=== PATIENT | male | born 1950 | race Caucasian/White ===

== ENCOUNTER 2018-04-18 17:54 | Inpatient (IN) | payer MEDICARE, MEDICAID ==
[~2018-04-18 17:54] MED LIST: HUM INSULIN NPH/REG INSULIN HM 100 UNIT/1 ML 3 ML SUBCUT SCH
[2018-04-18] MEDS ORDERED: ACETAMINOPHEN 650 MG SUPP.RECT PR ONE ×2 (18:19→18:21)
[2018-04-18] MEDS ORDERED: ACETAMINOPHEN 325 MG SUPP.RECT PR ONE (18:20)
[2018-04-18 18:32] LABS: INTERNATIONAL RATION (INR) 0.97; PROTHROMBIN TIME 13.4 SEC (11.4-15.4)
[2018-04-18 18:34] LABS: APPEARANCE,URINE SLIGHTLY-CLOUDY; BILIRUBIN,URINE NEGATIVE (NEGATIVE); COLOR,URINE YELLOW; GLUCOSE, URINE >=500 mg/dL (NEGATIVE); KETONES,URINE NEGATIVE (NEGATIVE); LEUKOCYTE ESTERASE,URINE NEGATIVE (NEGATIVE); NITRITE,URINE NEGATIVE (NEGATIVE); PROTEIN,URINE NEGATIVE (NEGATIVE); URINE SPECIFIC GRAVITY 1.022; UROBILINOGEN,URINE NEGATIVE mg/dL (<2.0)
[2018-04-18 18:37] LABS: ABSOLUTE LYMPHOCYTES (AUTO) 1.2 10^3/uL (0.5-4.7); ABSOLUTE MONOCYTES (AUTO) 0.9 10^3/uL (0.1-1.4); ABSOLUTE NEUT (AUTO) 7.9 10^3/uL (1.7-8.2); BASOPHILS % (AUTO) 0.2 % (0-2); EOSINOPHILS % (AUTO) 0.2 % (0-6); HEMATOCRIT 42.8 % (37.9-51.0); HEMOGLOBIN 14.8 g/dL (13.5-17.0); LYMPHOCYTES % (AUTO) 12.2 % (13-45); MEAN CORPUSCULAR HEMOGLOBIN 30.2 pg (27.0-33.4); MEAN CORPUSCULAR HGB CONC 34.5 g/dL (32.0-36.0); MEAN CORPUSCULAR VOLUME 88 fl (80-97); PLATELET COUNT 191 10^3/uL (150-450); RED BLOOD COUNT 4.89 10^6/uL (4.35-5.55); RED CELL DISTRIBUTION WIDTH 13.5 % (11.5-14.0); SEGMENTED NEUTROPHILS % (AUTO) 78.4 % (42-78); TOTAL CELLS COUNTED % (AUTO) 100 %; WHITE BLOOD COUNT 10.1 10^3/uL (4.0-10.5)
--- NOTE | 2018-04-18 18:44 | RADIOLOGY REPORT (SQ) ---
EXAM DESCRIPTION: CHEST SINGLE VIEW COMPLETED DATE/TIME: 04/18/2018 6:24 pm REASON FOR STUDY: ams COMPARISON: 02/10/2013 EXAM PARAMETERS: NUMBER OF VIEWS: One view. TECHNIQUE: Single frontal radiographic view of the chest acquired. RADIATION DOSE: NA LIMITATIONS: None. FINDINGS: LUNGS AND PLEURA: Low lung volumes. MEDIASTINUM AND HILAR STRUCTURES: Possible hilar adenopathy, particularly on the right. HEART AND VASCULAR STRUCTURES: Borderline. No pulmonary edema. BONES: No acute findings. HARDWARE: None in the chest. OTHER: No other significant finding. IMPRESSION: Low lung volumes. Hilar adenopathy. Borderline heart size without pulmonary edema. TECHNICAL DOCUMENTATION: JOB ID: [id number] [employer]- All Rights Reserved Reading location - IP/workstation name: [email or web address]
[2018-04-18] MEDS ORDERED: CEFEPIME 2 GM/D5W RTU 2 GM/50 ML RTUPB IV ONE (18:47)
[2018-04-18 18:48] LABS: ALANINE AMINOTRANSFERASE 24 U/L (21-72); ALBUMIN 4.5 g/dL (3.5-5.0); ALKALINE PHOSPHATASE 143 U/L (38-126); ANION GAP 12 (5-19); ASPARTATE AMINO TRANSFERASE 37 U/L (17-59); BILIRUBIN,DIRECT 0.7 mg/dL (0.0-0.4); BILIRUBIN,TOTAL 1.2 mg/dL (0.2-1.3); BLOOD UREA NITROGEN 23 mg/dL (7-20); CALCIUM 9.8 mg/dL (8.4-10.2); CARBON DIOXIDE 29 mmol/L (22-30); CHLORIDE 93 mmol/L (98-107); CREATINE KINASE 164 U/L (55-170); GLUCOSE 332 mg/dL (75-110); POTASSIUM 4.9 mmol/L (3.6-5.0); SODIUM 133.6 mmol/L (137-145); TOTAL PROTEIN 8.4 g/dL (6.3-8.2)
[2018-04-18] MEDS ORDERED: RINGERS SOLUTION,LACTATED 2,000 ML IV ONE (18:53)
--- NOTE | 2018-04-18 18:53 | ER Document Report ---
ED General - General Chief Complaint: Altered Mental Status Stated Complaint: FEVER,ALTERED MENTAL STATUS Time Seen by Provider: 04/18/18 18:27 Cannot obtain history due to: Altered mental status Notes: Patient is a 68-year-old male with a past medical history of hypertension, 80s, peripheral neuropathy, chronic pain currently in pain management who presents by EMS due to concerns of fever and a fall earlier today. History is somewhat limited as the patient is unable to provide history due to altered mental statu s. His daughter at the bedside reports that earlier today he apparently fell on the ground, was unable to get up and had to be helped by another family member. She states that when she got home and went to check on him he felt very hot and seems somewhat confused prompting her to contact EMS. The patient has also been apparently abusing his Percocet that was recently prescribed by pain management. Family has not noted any cough, has not noted that the patient has complained of any nausea, vomiting or diarrhea. Nothing has been noticed to improve or worsen his symptoms. TRAVEL OUTSIDE OF THE [place] IN LAST 30 DAYS: No - Related Data Allergies/Adverse Reactions: No Known Allergies Allergy (Unverified 02/27/11 13:54) Past Medical History - General Information source: Patient, Relative Cannot obtain history due to: Altered mental status - Social History Smoking Status: Former Smoker Frequency of alcohol use: None Drug Abuse: None Lives with: Family Family History: Reviewed & Not Pertinent - Past Medical History Cardiac Medical History: Denies: Hx Coronary Artery Disease, Hx Heart Attack, Hx Hypertension - Takes medicine for kidneys Pulmonary Medical History: Denies: Hx Asthma, Hx Bronchitis, Hx COPD, Hx Pneumonia, Hx Tuberculosis Neurological Medical History: Denies: Hx Cerebrovascular Accident, Hx Seizures Endocrine Medical History: Reports: Hx Diabetes Mellitus Type 2 GI Medical History: Reports: Hx Gastroesophageal Reflux Disease Musculoskeletal Medical History: Reports Hx Arthritis - Hands Past Surgical History: Denies: Hx Pacemaker - Immunizations Hx Diphtheria, Pertussis, Tetanus Vaccination: Yes - 02/27/11 Review of Systems - Review of Systems -: Yes ROS unobtainable due to patient's medical condition Physical Exam - Vital signs Vitals: Pulse Ox 97 04/18/18 18:00 Interpretation: Tachycardic, Febrile Notes: PHYSICAL EXAMINATION: GENERAL: Appears moderately ill but in no acute distress HEAD: Atraumatic, normocephalic. EYES: Pupils equal round and reactive to light, extraocular movements intact, sclera anicteric, conjunctiva are normal. ENT: nares patent, oropharynx clear without exudates. Extremely dry mucous membranes. NECK: Normal range of motion, supple without lymphadenopathy LUNGS: Breath sounds clear to auscultation bilaterally and equal. No wheezes rales or rhonchi. HEART: Regular tachycardia without murmurs ABDOMEN: Soft, nontender, normoactive bowel sounds. No guarding, no rebound. No masses appreciated. EXTREMITIES: Normal range of motion, no pitting or edema. No cyanosis. NEUROLOGICAL: No focal neurological deficits. Moves all extremities spontaneously and on command. PSYCH: Somewhat lethargic, does not provide any meaningful history and is intermittently disoriented SKIN: Warm, Dry, normal turgor, there is a pressure wound to the right heel as well as a blister to the affected area with approximately 2 cm in spreading erythema up the right lateral leg Course - Re-evaluation Re-evalutation: 04/18/18 18:48 Presentation of a very ill-appearing 67-year-old male who appears delirious, picking at his clothing, blanket and unable to provide a cogent history. He probably had a fall earlier today which was mechanical in nature but the patient himself does not recall the event. Was apparently on the ground for some time. On presentation the patient is in a cervical collar. I am unable to clinically clear him from a head or neck trauma perspective as the patient is himself altered and above [address] of the head cervical spine will be obtained. The only evidence of trauma to the affected areas is an abrasion over the right forehead. The patient was also noted to have a temperature of 103.1 F rectal. His chest x-ray is clear, urinalysis does not show evidence of infection. There is a cellulitis at the heel of the right foot along the lateral aspect which appears to be originating from a blister and pressure wound to the area. X-ray of the foot is pending as patient does have a history of osteomyelitis and I suspect that this may be the source of the patient's fever. The patient has also been abusing oxycodone. Family reports that he was recently started on Percocet 15 mg 4 times daily. While this dose and of itself is concerning the patient is asked been doubling this medication to 30 mg 4 times daily for an unknown period of time per the family who did a pill count today. This could also be contributing to the patient's altered mental status although he does not demonstrate any evidence of respiratory suppression at this point. I have advised the patient and the family that chronic opiate use has never shown benefit and there is increasing evidence that it is only harmful and should be discontinued. 04/18/18 20:11 I discussed this case with Dr. Otero. Review of CT of the head and cervical spine are normal. X-ray of the right foot without any evidence of osteo- myelitis. The remainder of her labs are otherwise unremarkable. Dr. Otero has requested a CT abdomen pelvis to further clarify if there could be any intra-abdominal pathology although patient is not complaining of any significant abdominal pain but again is not a appropriate historian at this point. 04/18/18 22:09 CT unremarkable without evidence of pathology likely related to his current p resentation. I discussed with Dr. Otero who has accepted the patient for admission. - Vital Signs Vital signs: Temp Pulse Resp BP Pulse Ox 103.1 F H 139 H 20 108/58 L 95 04/19/18 01:41 04/19/18 01:41 04/19/18 01:41 04/19/18 01:41 04/19/18 01:41 - Laboratory Result Diagrams: 04/18/18 17:30 04/18/18 17:30 Laboratory results interpreted by me: 04/18/18 04/18/18 04/18/18 17:30 17:30 17:30 Seg Neutrophils % 78.4 H Lymphocytes % 12.2 L Sodium 133.6 L Chloride 93 L BUN 23 H Glucose 332 H POC Glucose Direct Bilirubin 0.7 H Alkaline Phosphatase 143 H Total Protein 8.4 H TSH 0.36 L Urine Glucose (UA) 04/18/18 04/18/18 18:05 21:43 Seg Neutrophils % Lymphocytes % Sodium Chloride BUN Glucose POC Glucose 254 H Direct Bilirubin Alkaline Phosphatase Total Protein TSH Urine Glucose (UA) >=500 H - Diagnostic Test Radiology reviewed: Image reviewed, Reports reviewed Radiology results interpreted by me: 04/18/18 22:09 Chest x-ray: No acute infiltrate or pneumothorax CT head: No acute cranial bleed or mass Discharge - Discharge Clinical Impression: Cellulitis of right leg Sepsis Qualifiers: Sepsis type: sepsis due to unspecified organism Qualified Code(s): A41.9 - Sepsis, unspecified organism Fall Qualifiers: Encounter type: initial encounter Qualified Code(s): W19.XXXA - Unspecified fall, initial encounter Head trauma Qualifiers: Encounter type: initial encounter Qualified Code(s): S09.90XA - Unspecified injury of head, initial encounter Condition: Fair Disposition: ADMITTED INPATIENT Admitting Provider: Hospitalist Unit Admitted: Telemetry
[2018-04-18 19:06] LABS: CREATINE KINASE MB 2.28 ng/mL (<4.55)
[2018-04-18 19:07] LABS: TROPONIN I < 0.012 ng/mL
--- NOTE | 2018-04-18 19:26 | RADIOLOGY REPORT (SQ) ---
EXAM DESCRIPTION: FOOT RIGHT COMPLETE COMPLETED DATE/TIME: 04/18/2018 7:10 pm REASON FOR STUDY: eval osteo calcaneus COMPARISON: 01/08/2013 NUMBER OF VIEWS: Three views. TECHNIQUE: AP, lateral and oblique radiographic images acquired of the right foot. LIMITATIONS: None. FINDINGS: MINERALIZATION: Normal. BONES: No fracture dislocation. Small plantar calcaneal spur. JOINTS: No effusions. SOFT TISSUES: No soft tissue swelling. No foreign body. OTHER: No other significant finding. IMPRESSION: Calcaneal spur. No acute findings. No evidence of osteomyelitis. TECHNICAL DOCUMENTATION: JOB ID: [id number] [employer]- All Rights Reserved Reading location - IP/workstation name: [email or web address]
--- NOTE | 2018-04-18 19:30 | RADIOLOGY REPORT (SQ) ---
EXAM DESCRIPTION: CT HEAD WITHOUT COMPLETED DATE/TIME: 04/18/2018 7:19 pm REASON FOR STUDY: fall, ams COMPARISON: None. TECHNIQUE: Axial images acquired through the brain without intravenous contrast. Images reviewed wi th bone, brain and subdural windows. Additional sagittal and coronal reconstructions were generated. Images stored on PACS. All CT scanners at this facility use dose modulation, iterative reconstruction, and/or weight based d osing when appropriate to reduce radiation dose to as low as reasonably achievable (ALARA). [facility]: Dose Right [facility]: CareDose [facility]: Dose Right [facility]: Teradose 4D [facility]: Smart Cleartrip RADIATION DOSE: CT Rad equipment meets quality standard of care and radiation dose reduction techniq ues were employed. CTDIvol: 53.2 mGy. DLP: 1044 mGy-cm. mGy. LIMITATIONS: None. FINDINGS: VENTRICLES: Normal size and contour. CEREBRUM: No masses. No hemorrhage. No midline shift. No evidence for acute infarction. Normal gra y/white matter differentiation. No areas of low density in the white matter. CEREBELLUM: No masses. No hemorrhage. No alteration of density. No evidence for acute infarction. EXTRAAXIAL SPACES: No fluid collections. No masses. ORBITS AND GLOBE: No intra- or extraconal masses. Normal contour of globe without masses. CALVARIUM: No fracture. PARANASAL SINUSES: No fluid or mucosal thickening. SOFT TISSUES: No mass or hematoma. OTHER: No other significant finding. IMPRESSION: NORMAL BRAIN CT WITHOUT CONTRAST. EVIDENCE OF ACUTE STROKE: NO. COMMENT: Quality ID # [id number]: Final reports with documentation of one or more dose reduction techniques (e.g., Automated exposure control, adjustment of the mA and/or kV according to patient size, use of iterative reconstruction technique) TECHNICAL DOCUMENTATION: JOB ID: [id number] [employer]- All Rights Reserved Reading location - IP/workstation name: [email or web address]
--- NOTE | 2018-04-18 19:32 | RADIOLOGY REPORT (SQ) ---
EXAM DESCRIPTION: CT CERVICAL SPINE WITHOUT COMPLETED DATE/TIME: 04/18/2018 7:19 pm REASON FOR STUDY: fall, ams COMPARISON: None. TECHNIQUE: Axial images acquired through the cervical spine without intravenous contrast. Images re viewed with lung, soft tissue and bone windows. Reconstructed coronal and sagittal MPR images review ed. Images stored on PACS. All CT scanners at this facility use dose modulation, iterative reconstruction, and/or weight based d osing when appropriate to reduce radiation dose to as low as reasonably achievable (ALARA). [facility]: Dose Right [facility]: CareDose [facility]: Dose Right [facility]: Teradose 4D [facility]: Smart Technologies RADIATION DOSE: CT Rad equipment meets quality standard of care and radiation dose reduction techniq ues were employed. CTDIvol: 23.5 mGy. DLP: 481 mGy-cm. mGy. LIMITATIONS: None. FINDINGS: ALIGNMENT: Anatomic. MINERALIZATION: Normal. VERTEBRAL BODIES: No fractures or dislocation. DISCS: Multilevel disc space narrowing with osteophytes. FACETS, LATERAL MASSES, POSTERIOR ELEMENTS: Facet arthropathy. No fractures. No dislocation. No ac teller findings. HARDWARE: None in the spine. VISUALIZED RIBS: No fractures. LUNG APICES AND SOFT TISSUES: No significant or acute findings. OTHER: No other significant finding. IMPRESSION: CHRONIC DEGENERATIVE CHANGES. NO ACUTE FINDINGS. TECHNICAL DOCUMENTATION: JOB ID: [id number] Quality ID # [id number]: Final reports with documentation of one or more dose reduction techniques (e.g., Au tomated exposure control, adjustment of the mA and/or kV according to patient size, use of iterative reconstruction technique) 2010 [employer]- All Rights Reserved Reading location - IP/workstation name: [email or web address]
[2018-04-18 20:21] LABS: A TYPE INFLUENZA AG NEGATIVE (NEGATIVE); B INFLUENZA AG NEGATIVE (NEGATIVE)
--- NOTE | 2018-04-18 21:55 | RADIOLOGY REPORT (SQ) ---
EXAM DESCRIPTION: CT abdomen and pelvis with IV contrast CLINICAL HISTORY:68 years Male, fever, ab pain Comparison: None TECHNIQUE: Contiguous axial images of the abdomen and pelvis were obtained followed by reconstruction images. This exam was performed according to our departmental dose-optimization program, which includes automated exposure control, adjustment of the mA and/or kV according to patient size and/or use of iterative reconstruction technique. FINDINGS: Lung bases: Lung bases are clear. Heart: Visualized heart is within normal limits in size. Mild coronary artery calcifications. Liver:Unremarkable. No focal liver lesion. Gallbladder:Unremarkable. No gallstones. No gallbladder wall thickening or pericholecystic fluid. Spleen:Unremarkable Pancreas: Pancreas is unremarkable. Adrenal glands:Within normal limits. Kidneys/ureters:Within normal limits Bladder:Unremarkable. Pelvic organs: No acute abnormality Vascular structures: within normal limits Peritoneum: No free fluid. Lymph nodes: No abnormal lymph nodes. Stomach/small bowel/colon: Stomach is unremarkable. Multiple dilated fluid-filled loops of small bowel in the left hemiabdomen measuring up to 3 cm in diameter. No discrete transition point. Retained stool is present throughout the colon suggestive of constipation. Appendix: No evidence of appendicitis. Bones: No acute osseous abnormality. Soft tissues: Unremarkable.. IMPRESSION: Mildly dilated fluid-filled loops of small bowel in the left hemiabdomen. Differential possibilities include enteritis versus partial small bowel obstruction. Findings also suggestive of constipation.
[2018-04-18] MEDS ORDERED: IPRATROPIUM/ALBUTEROL 0.5-2.5 MG/3 ML AMPUL NEB PRN (22:29)
[2018-04-18] MEDS ORDERED: MAG HYDROX/AL HYDROX/SIMETH SUSP 30 ML UDCUP PO PRN (22:29)
[2018-04-18] MEDS ORDERED: GLUCAGON,HUMAN RECOMB 1 MG INJ IM PRN (22:29)
[2018-04-18] MEDS ORDERED: DEXTROSE 50%-WATER 25 GM/50 ML DISP.SYRIN IV PRN ×2 (22:29)
[2018-04-18] MEDS ORDERED: DEXTROSE 40% GEL 15 GM TUBE PO PRN ×2 (22:29)
[2018-04-18] MEDS ORDERED: HUM INSULIN NPH/REG INSULIN HM 100 UNIT/1 ML 3 ML SUBCUT ONE (22:45)
[2018-04-18 23:02] LABS: URINE AMPHETAMINES SCREEN NEGATIVE; URINE BARBITURATES SCREEN NEGATIVE; URINE BENZODIAZEPINES SCREEN NEGATIVE; URINE COCAINE SCREEN NEGATIVE; URINE MARIJUANA (THC) SCREEN NEGATIVE; URINE METHADONE SCREEN NEGATIVE; URINE PHENCYCLIDINE SCREEN NEGATIVE
[2018-04-18 23:36] LABS: CREATINE KINASE MB 2.12 ng/mL (<4.55)
[2018-04-18 23:41] LABS: TROPONIN I < 0.012 ng/mL
[2018-04-18] MEDS: NA PHOS,M-B/NA PHOS,DI-BA (ADULT) 133 ML ENEMA PR ONE (23:46)
[2018-04-18] MEDS: LACTULOSE SYRUP 20 GM/30 ML UDCUP PO ONE (23:50)
[2018-04-19] MEDS ORDERED: GABAPENTIN 400 MG CAPSULE PO SCH (00:15)
[2018-04-19] MEDS: ACETAMINOPHEN 325 MG TABLET PO PRN ×3 (00:16→19:09)
[2018-04-19] MEDS: NA PHOS,M-B/NA PHOS,DI-BA (ADULT) 133 ML ENEMA PR ONE (00:21)
[2018-04-19] MEDS: NORMAL SALINE 1000 ML 1,000 ML IV PRN ×2 (00:21→08:16)
[2018-04-19] MEDS: LACTULOSE SYRUP 20 GM/30 ML UDCUP PO ONE (00:22)
[2018-04-19] MEDS ORDERED: GABAPENTIN 300 MG CAPSULE PO ONE (01:45)
[2018-04-19] MEDS ORDERED: VANCOMYCIN HCL 1,250 MG in DEXTROSE 5%-WATER 250 ML IV ONE (03:11)
[2018-04-19] MEDS ORDERED: VANCOMYCIN HCL 0 MG in DEXTROSE 5%-WATER 250 ML IV NR (03:15)
[2018-04-19] MEDS ORDERED: VANCOMYCIN HCL INJ 1000 MG VIAL IV PRN (03:33)
[2018-04-19] MEDS ORDERED: VANCOMYCIN HCL INJ 1000 MG VIAL ONE (03:49)
[2018-04-19] MEDS ORDERED: VANCOMYCIN HCL INJ 500 MG VIAL ONE (03:49)
--- NOTE | 2018-04-19 04:32 | PDOC H&P ---
History of Present Illness Admission Date/PCP: 04/18/18 22:17 ALBERTO WINTERS DO Patient complains of: Altered mental status and fall History of Present Illness: ADELINA HANDY is a 68 year old male with a past medical history of diabetes, right heel osteomyelitis, opiate dependent chronic pain, benzodiazepine and dependent anxiety. Patient presents via EMS after a ground-level mechanical fall resulting in abrasion to his forehead. He has had subsequent confusion, fever and abdominal pain prompting evaluation in the emergency room. He is found to have an unremarkable CT of the head, abdominal pain and distention with a partial small bowel obstruction with fecal impaction, and bilateral heel ulcer with bone exposure. He started on empiric antibiotics and referred to the hospitalist for admission. Patient's daughter is at bedside who verifies discrepancy in opiate medications and unable to find her father's Klonopin. Past Medical History Cardiac Medical History: Denies: Coronary Artery Disease, Myocardial Infarction, Hypertension - Takes medicine for kidneys Pulmonary Medical History: Denies: Asthma, Bronchitis, Chronic Obstructive Pulmonary Disease (COPD), Pneumonia, Tuberculosis Neurological Medical History: Denies: Seizures Endocrine Medical History: Reports: Diabetes Mellitus Type 2 GI Medical History: Reports: Gastroesophageal Reflux Disease Musculoskeltal Medical History: Reports: Arthritis - Hands Hematology: Denies: Anemia Past Surgical History Past Surgical History: Denies: Pacemaker Social History Information Source: Patient Lives with: Family Smoking Status: Former Smoker Frequency of Alcohol Use: None Hx Recreational Drug Use: No Hx Prescription Drug Abuse: No - Advance Directive Resuscitation Status: Full Code Family History Family History: Hypertension Parental Family History Reviewed: Yes Children Family History Reviewed: Yes Sibling(s) Family History Reviewed.: Yes Medication/Allergy Home Medications: Metformin HCl [Glucophage] 500 mg PO QAM 02/27/11 Klonopin 1 mg Tablet 1 mg PO QID 03/15/11 Alpha Lipoic Acid 200 mg PO DAILY 04/19/18 Docusate Sodium [Colace 100 mg Capsule] 100 mg PO DAILY 04/19/18 Ergocalciferol (Vitamin D2) [Drisdol 50,000 unit (1.25MG) Capsule] 1 cap PO 04/19/18 Gabapentin 800 mg PO QID 04/19/18 Gabapentin [Neurontin 100 mg Capsule] 100 mg PO QID 04/19/18 Lisinopril/Hydrochlorothiazide [Lisinopril-Hctz 20-12.5 mg Tab] 1 tab PO DAILY 04/19/18 Metformin HCl [Metformin HCl ER] 1,000 mg PO QPM 04/19/18 Oxycodone HCl 1 tab PO QID PRN 04/19/18 Allergies/Adverse Reactions: No Known Allergies Allergy (Unverified 02/27/11 13:54) Review of Systems ROS unobtainable: Due to mental status - Encephalopathic Physical Exam Vital Signs: Temp Pulse Resp BP Pulse Ox 98.2 F 77 18 99/50 L 96 04/19/18 04:00 04/19/18 04:00 04/19/18 04:00 04/19/18 04:00 04/19/18 04:00 Intake & Output 04/17/18 04/18/18 04/19/18 11:59 11:59 11:59 Intake Total 2049 Balance 2049 Weight 87.6 kg General appearance: PRESENT: cooperative, disheveled, mild distress, obese Head exam: PRESENT: normocephalic. ABSENT: atraumatic - 2 x 2 centimeter abrasion to the forehead without laceration or hematoma Eye exam: PRESENT: conjunctiva pink, EOMI, PERRLA. ABSENT: scleral icterus Ear exam: PRESENT: normal external ear exam Mouth exam: PRESENT: moist, tongue midline Neck exam: ABSENT: carotid bruit, JVD, lymphadenopathy, thyromegaly Respiratory exam: PRESENT: clear to auscultation azeb, prolonged expiratory phas, tachypnea. ABSENT: rales, rhonchi, wheezes Cardiovascular exam: PRESENT: +S1, +S2, tachycardia Pulses: PRESENT: normal dorsalis pedis pul Vascular exam: PRESENT: normal capillary refill GI/Abdominal exam: PRESENT: diminished bowel sounds, distended, firm, hypoactive bowel sounds, tenderness Rectal exam: PRESENT: deferred Extremities exam: PRESENT: tenderness, +1 edema, other - Bilateral heel ulcer 2 x 2 cm with bone exposure Neurological exam: PRESENT: altered, awake, oriented to person, CN II-XII grossly intact Psychiatric exam: PRESENT: appropriate affect, normal mood. ABSENT: homicidal ideation, suicidal ideation Skin exam: PRESENT: dry, intact, warm. ABSENT: cyanosis, rash Results Laboratory Results: 04/18/18 17:30 04/18/18 17:30 04/18/18 04/18/18 04/18/18 17:30 17:30 17:30 WBC 10.1 RBC 4.89 Hgb 14.8 Hct 42.8 MCV 88 MCH 30.2 MCHC 34.5 RDW 13.5 Plt Count 191 Seg Neutrophils % 78.4 H Lymphocytes % 12.2 L Monocytes % 9.0 Eosinophils % 0.2 Basophils % 0.2 Absolute Neutrophils 7.9 Absolute Lymphocytes 1.2 Absolute Monocytes 0.9 Absolute Eosinophils 0.0 Absolute Basophils 0.0 Sodium 133.6 L Potassium 4.9 Chloride 93 L Carbon Dioxide 29 Anion Gap 12 BUN 23 H Creatinine 1.00 Est GFR ( Amer) > 60 Est GFR (Non-Af Amer) > 60 Glucose 332 H Lactic Acid Calcium 9.8 Phosphorus 2.5 Total Bilirubin 1.2 AST 37 ALT 24 Alkaline Phosphatase 143 H Total Protein 8.4 H Albumin 4.5 TSH Urine Color Urine Appearance Urine pH Ur Specific [place] Urine Protein Urine Glucose (UA) Urine Ketones Urine Blood Urine Nitrite Ur Leukocyte Esterase Urine WBC (Auto) Urine RBC (Auto) 04/18/18 04/18/18 04/18/18 17:30 18:05 18:20 WBC RBC Hgb Hct MCV MCH MCHC RDW Plt Count Seg Neutrophils % Lymphocytes % Monocytes % Eosinophils % Basophils % Absolute Neutrophils Absolute Lymphocytes Absolute Monocytes Absolute Eosinophils Absolute Basophils Sodium Potassium Chloride Carbon Dioxide Anion Gap BUN Creatinine Est GFR ( Amer) Est GFR (Non-Af Amer) Glucose Lactic Acid 1.6 Calcium Phosphorus Total Bilirubin AST ALT Alkaline Phosphatase Total Protein Albumin TSH 0.36 L Urine Color YELLOW Urine Appearance SLIGHTLY-CLOUDY Urine pH 6.0 Ur Specific [place] 1.022 Urine Protein NEGATIVE Urine Glucose (UA) >=500 H Urine Ketones NEGATIVE Urine Blood NEGATIVE Urine Nitrite NEGATIVE Ur Leukocyte Esterase NEGATIVE Urine WBC (Auto) 1 Urine RBC (Auto) 0 04/18/18 04/18/18 04/18/18 17:30 17:30 23:00 Creatine Kinase 164 200 H CK-MB (CK-2) 2.28 Troponin I < 0.012 04/18/18 23:00 Creatine Kinase CK-MB (CK-2) 2.12 Troponin I < 0.012 Impressions: Chest X-Ray 04/18/18 18:12 IMPRESSION: Low lung volumes. Hilar adenopathy. Borderline heart size without pulmonary edema. Cervical Spine CT 04/18/18 18:47 IMPRESSION: CHRONIC DEGENERATIVE CHANGES. NO ACUTE FINDINGS. Foot X-Ray 04/18/18 18:47 IMPRESSION: Calcaneal spur. No acute findings. No evidence of osteomyelitis. Head CT 04/18/18 18:47 IMPRESSION: NORMAL BRAIN CT WITHOUT CONTRAST. EVIDENCE OF ACUTE STROKE: NO. Abdomen/Pelvis CT 04/18/18 20:11 IMPRESSION: Mildly dilated fluid-filled loops of small bowel in the left hemiabdomen. Differential possibilities include enteritis versus partial small bowel obstruction. Findings also suggestive of constipation. Assessment & Plan - Diagnosis (1) Partial small bowel obstruction Is this a current diagnosis for this admission?: Yes Plan: Likely fecal impaction secondary to opiate dependence, Fleet enema, lactulose, NG tube as needed, consider surgical consultation (2) Osteomyelitis due to secondary diabetes Is this a current diagnosis for this admission?: Yes Plan: Empiric vancomycin initiated, surgical consultation (3) Heel ulcer due to secondary DM Is this a current diagnosis for this admission?: Yes Plan: Empiric vancomycin initiated, follow-up surgical consultation (4) Encephalopathy acute Is this a current diagnosis for this admission?: Yes Plan: Most likely secondary to Klonopin withdrawal. Klonopin resumed, supportive measures - Time Time Spent: 50 to 70 Minutes - Inpatient Certification Medical Necessity: Need Close Monitoring Due to Risk of Patient Decompensation
[2018-04-19] MEDS: HEPARIN SOD (PORCINE) 5,000 UNIT/ML 1 ML SYRINGE SUBCUT SCH ×3 (05:14→21:06)
[2018-04-19 06:28] LABS: ANION GAP 8 (5-19); BLOOD UREA NITROGEN 14 mg/dL (7-20); CALCIUM 9.3 mg/dL (8.4-10.2); CARBON DIOXIDE 29 mmol/L (22-30); CHLORIDE 100 mmol/L (98-107); CREATINE KINASE 250 U/L (55-170); GLUCOSE 210 mg/dL (75-110); POTASSIUM 4.1 mmol/L (3.6-5.0); SODIUM 136.9 mmol/L (137-145)
[2018-04-19 06:29] LABS: HEMATOCRIT 40.1 % (37.9-51.0); HEMOGLOBIN 13.6 g/dL (13.5-17.0); MEAN CORPUSCULAR HEMOGLOBIN 29.8 pg (27.0-33.4); MEAN CORPUSCULAR HGB CONC 33.9 g/dL (32.0-36.0); MEAN CORPUSCULAR VOLUME 88 fl (80-97); PLATELET COUNT 145 10^3/uL (150-450); RED BLOOD COUNT 4.56 10^6/uL (4.35-5.55); RED CELL DISTRIBUTION WIDTH 13.6 % (11.5-14.0); WHITE BLOOD COUNT 7.9 10^3/uL (4.0-10.5)
[2018-04-19 06:34] LABS: ABSOLUTE LYMPHOCYTES# (MANUAL) 2.1 10^3/uL (0.5-4.7); ABSOLUTE MONOCYTES # (MANUAL) 0.3 10^3/uL (0.1-1.4); ABSOLUTE NEUTROPHILS# (MANUAL) 5.5 10^3/uL (1.7-8.2); BASOPHILS % (MANUAL) 0 % (0-2); EOSINOPHILS % (MANUAL) 0 % (0-6); LYMPHOCYTES % (MANUAL) 26 % (13-45); MONOCYTES % (MANUAL) 4 % (3-13); RBC MORPHOLOGY COMMENT NORMO-CYTIC/CHROMIC; SEGMENTED NEUTROPHILS % (MAN) 70 % (42-78); TOTAL CELLS COUNTED 100
[2018-04-19 06:35] LABS: PLATELET COMMENT ADEQUATE
--- NOTE | 2018-04-19 06:35 | Operative Report ---
Operative Report DATE OF SURGERY: 04/19/18 PREOPERATIVE DIAGNOSIS: 1. Diabetes mellitus with peripheral neuropathy. 2. Deep stage II bilateral heel ulcers POSTOPERATIVE DIAGNOSIS: Same; no clinical evidence of osteomyelitis of the heels OPERATION: Excisional debridement of skin of bilateral stage II heel ulcers SURGEON: ALFONZO SANCHEZ ANESTHESIA: Other - No anesthesia required secondary to peripheral neuropathy TISSUE REMOVED OR ALTERED: Nonviable skin COMPLICATIONS: None ESTIMATED BLOOD LOSS: Minimal INTRAOPERATIVE FINDINGS: See below PROCEDURE: Patient had both heels exposed. Patient has classic deep stage II pressure ulcers of the heels. Patient has a known right calcaneus spur. Findings were significant for skin bilaterally, minimal surrounding erythema, no pus Excisional debridement was performed of skin from both heels at sites of pressure ulceration. And was disposed of. On the right heel there was some viable thick eschar approximately 2 x 2 cm; no pus or tracking. Left heel without deeper eschar. Impression: Status post debridement bilateral heel ulcers with no clinical or radiographic evidence of osteomyelitis recommendations 1. Accuzyme to right heel ulcer; bilateral leaving dressings 2. Pressure offloading 3. No indication for further radiographic evaluation of the heel; no indication to treat for osteomyelitis
--- NOTE | 2018-04-19 06:36 | EKG REPORT ---
SEVERITY:- ABNORMAL ECG - SINUS TACHYCARDIA LAFB ANTERIOR Q WAVES, CONSIDER OLD ANTEROSEPTAL CO. : Confirmed by: Donta Cadet MD 19-Apr-2018 06:35:12
[2018-04-19 06:38] LABS: CREATINE KINASE MB 1.69 ng/mL (<4.55)
[2018-04-19 06:48] LABS: TROPONIN I < 0.012 ng/mL
[2018-04-19] MEDS: HUM INSULIN NPH/REG INSULIN HM 100 UNIT/1 ML 3 ML SUBCUT SCH ×2 (08:02→16:00)
[2018-04-19] MEDS: CLONAZEPAM 1 MG TABLET PO PRN ×2 (08:18→19:10)
[2018-04-19] MEDS ORDERED: ACETAMINOPHEN 650 MG SUPP.RECT PR PRN (09:45)
[2018-04-19] MEDS ORDERED: CEFEPIME 1 GM/D5W RTU 1 GM/50 ML RTUPB IV SCH (10:00)
[2018-04-19] MEDS ORDERED: (PENDING PHARMACY ID) (Lisinopril/Hydrochlorothiazide [Lisinopril-Hctz 20-12.5 Mg Tab] 1 T PO SCH (10:00)
[2018-04-19] MEDS ORDERED: COLLAGENASE CLOSTRIDIUM HIST. OINT 30 GM TOP SCH (10:00)
[2018-04-19 12:51] LABS: CREATINE KINASE MB 1.65 ng/mL (<4.55)
[2018-04-19 12:57] LABS: TROPONIN I < 0.012 ng/mL
[2018-04-19] MEDS: GABAPENTIN 300 MG CAPSULE PO SCH ×2 (15:01→21:04)
[2018-04-19] MEDS: DOCUSATE SODIUM 100 MG CAPSULE PO SCH (15:19)
--- NOTE | 2018-04-19 17:04 | PDOC PROGRESS REPORT ---
Subjective Progress Note for:: 04/19/18 Subjective:: The patient is a 68-year-old male with a past medical history of diabetes mellitus, GERD, arthritis, opiate dependent chronic pain, and benzodiazepine dependent anxiety who was admitted 04/18/18 after a mechanical fall and found to have acute encephalopathy, fecal impaction, and bilateral diabetic foot ulcers. The patient was seen on morning rounds with his daughter present. He was found resting in bed comfortably on room air. He was arousable and oriented to self; will follow simple commands, but not answer questions. Per the patient's daughter, at baseline the patient functions independently and is capable of paying his own finances, driving a car, and ambulates with use of a cane only. She reports that he seemed slightly fatigued over the previous couple of days with slight forgetfulness but otherwise with his normal state of health until his fall. She denies the patient having reported recent illnesses or complaints of fever/chills, chest pain, dyspnea, cough, abdominal pain, nausea vomiting and diarrhea. She does note that there has been a URI among family members with fever/chills, myalgia, congestion, and cough; however to her knowledge the patient has not experienced this illness. The patient's daughter does admit that the patient likely has utilized more oxycodone than is prescribed, she is uncertain as to his Klonopin use as she has not been able to find the pill bottle. She denies any alcohol intake. ROS is limited secondary to patient's mental status. No concerns per nursing. Reason For Visit: AMS PSBO R HEEL OSTEO,FECAL IMPACTION CHRONIC PAIN Physical Exam Vital Signs: Temp Pulse Resp BP Pulse Ox 98.9 F 69 18 100/60 100 04/19/18 12:00 04/19/18 12:00 04/19/18 12:00 04/19/18 12:00 04/19/18 12:00 Intake & Output 04/18/18 04/19/18 04/20/18 06:59 06:59 06:59 Intake Total 3600 Output Total 1050 Balance 2550 Weight 87.6 kg General appearance: PRESENT: no acute distress, disheveled, well-developed, well-nourished Head exam: PRESENT: normocephalic, other - Abrasion to forehead Eye exam: PRESENT: conjunctiva pink, EOMI, PERRLA. ABSENT: scleral icterus Ear exam: PRESENT: normal external ear exam Mouth exam: PRESENT: moist, tongue midline Neck exam: ABSENT: carotid bruit, JVD, lymphadenopathy, thyromegaly Respiratory exam: PRESENT: clear to auscultation azeb, symmetrical, unlabored. ABSENT: rales, rhonchi, wheezes Cardiovascular exam: PRESENT: RRR. ABSENT: diastolic murmur, rubs, systolic murmur Pulses: PRESENT: normal dorsalis pedis pul Vascular exam: PRESENT: normal capillary refill GI/Abdominal exam: PRESENT: distended, normal bowel sounds, soft. ABSENT: guarding, mass, organolmegaly, rebound, tenderness Rectal exam: PRESENT: deferred Extremities exam: PRESENT: full ROM, +1 edema - BLE. ABSENT: calf tenderness, clubbing, pedal edema Neurological exam: PRESENT: alert, awake, oriented to person, CN II-XII grossly intact. ABSENT: motor sensory deficit Psychiatric exam: ABSENT: homicidal ideation, suicidal ideation Skin exam: PRESENT: dry, warm, other - Bilateral deep stage II bilateral heel ulcers now status post bedside debridement by surgery. ABSENT: cyanosis, rash Results Laboratory Results: 04/19/18 05:57 04/19/18 05:57 04/18/18 04/18/18 04/18/18 17:30 17:30 17:30 WBC 10.1 RBC 4.89 Hgb 14.8 Hct 42.8 MCV 88 MCH 30.2 MCHC 34.5 RDW 13.5 Plt Count 191 Seg Neutrophils % 78.4 H Lymphocytes % 12.2 L Monocytes % 9.0 Eosinophils % 0.2 Basophils % 0.2 Absolute Neutrophils 7.9 Absolute Lymphocytes 1.2 Absolute Monocytes 0.9 Absolute Eosinophils 0.0 Absolute Basophils 0.0 Sodium 133.6 L Potassium 4.9 Chloride 93 L Carbon Dioxide 29 Anion Gap 12 BUN 23 H Creatinine 1.00 Est GFR ( Amer) > 60 Est GFR (Non-Af Amer) > 60 Glucose 332 H Lactic Acid Calcium 9.8 Phosphorus 2.5 Total Bilirubin 1.2 AST 37 ALT 24 Alkaline Phosphatase 143 H C-Reactive Protein Total Protein 8.4 H Albumin 4.5 TSH Urine Color Urine Appearance Urine pH Ur Specific [place] Urine Protein Urine Glucose (UA) Urine Ketones Urine Blood Urine Nitrite Ur Leukocyte Esterase Urine WBC (Auto) Urine RBC (Auto) 04/18/18 04/18/18 04/18/18 17:30 18:05 18:20 WBC RBC Hgb Hct MCV MCH MCHC RDW Plt Count Seg Neutrophils % Lymphocytes % Monocytes % Eosinophils % Basophils % Absolute Neutrophils Absolute Lymphocytes Absolute Monocytes Absolute Eosinophils Absolute Basophils Sodium Potassium Chloride Carbon Dioxide Anion Gap BUN Creatinine Est GFR ( Amer) Est GFR (Non-Af Amer) Glucose Lactic Acid 1.6 Calcium Phosphorus Total Bilirubin AST ALT Alkaline Phosphatase C-Reactive Protein Total Protein Albumin TSH 0.36 L Urine Color YELLOW Urine Appearance SLIGHTLY-CLOUDY Urine pH 6.0 Ur Specific [place] 1.022 Urine Protein NEGATIVE Urine Glucose (UA) >=500 H Urine Ketones NEGATIVE Urine Blood NEGATIVE Urine Nitrite NEGATIVE Ur Leukocyte Esterase NEGATIVE Urine WBC (Auto) 1 Urine RBC (Auto) 0 04/19/18 04/19/18 04/19/18 05:57 05:57 05:57 WBC 7.9 RBC 4.56 Hgb 13.6 Hct 40.1 MCV 88 MCH 29.8 MCHC 33.9 RDW 13.6 Plt Count 145 L Seg Neutrophils % Not Reportable Lymphocytes % Not Reportable Monocytes % Not Reportable Eosinophils % Not Reportable Basophils % Not Reportable Absolute Neutrophils Not Reportable Absolute Lymphocytes Not Reportable Absolute Monocytes Not Reportable Absolute Eosinophils Not Reportable Absolute Basophils Not Reportable Sodium 136.9 L Potassium 4.1 Chloride 100 Carbon Dioxide 29 Anion Gap 8 BUN 14 Creatinine 0.76 Est GFR ( Amer) > 60 Est GFR (Non-Af Amer) > 60 Glucose 210 H Lactic Acid Calcium 9.3 Phosphorus Total Bilirubin AST ALT Alkaline Phosphatase C-Reactive Protein 217.4 H Total Protein Albumin TSH Urine Color Urine Appearance Urine pH Ur Specific [place] Urine Protein Urine Glucose (UA) Urine Ketones Urine Blood Urine Nitrite Ur Leukocyte Esterase Urine WBC (Auto) Urine RBC (Auto) 04/18/18 04/18/18 04/18/18 17:30 17:30 23:00 Creatine Kinase 164 200 H CK-MB (CK-2) 2.28 Troponin I < 0.012 04/18/18 04/19/18 04/19/18 23:00 05:57 05:57 Creatine Kinase 250 H CK-MB (CK-2) 2.12 1.69 Troponin I < 0.012 < 0.012 12/22/18 12/22/18 11:40 11:40 Creatine Kinase 315 H CK-MB (CK-2) 1.65 Troponin I < 0.012 Impressions: Chest X-Ray 04/18/18 18:12 IMPRESSION: Low lung volumes. Hilar adenopathy. Borderline heart size without pulmonary edema. Cervical Spine CT 04/18/18 18:47 IMPRESSION: CHRONIC DEGENERATIVE CHANGES. NO ACUTE FINDINGS. Foot X-Ray 04/18/18 18:47 IMPRESSION: Calcaneal spur. No acute findings. No evidence of osteomyelitis. Head CT 04/18/18 18:47 IMPRESSION: NORMAL BRAIN CT WITHOUT CONTRAST. EVIDENCE OF ACUTE STROKE: NO. Abdomen/Pelvis CT 04/18/18 20:11 IMPRESSION: Mildly dilated fluid-filled loops of small bowel in the left hemiabdomen. Differential possibilities include enteritis versus partial small bowel obstruction. Findings also suggestive of constipation. Assessment & Plan - Diagnosis (1) Encephalopathy acute Is this a current diagnosis for this admission?: Yes Plan: Likely multifactorial secondary to opiate pain medication use (unintentional overuse), Klonopin overuse or withdrawal (family members unable to locate the patient's education bottle), infection (patient is febrile with bacteremia and 2/4 bottles), and fecal impaction. Head CT Demonstrated a normal brain without evidence of acute stroke. CXR showed low lung volumes with hilar adenopathy and borderline heart size without pulmonary edema. Is admitted to the medical floor on continuous cardiac telemetry. We will resume his home dose Klonopin. Avoid opiate medications. Rehydrate with IV fluids. Antibiotics and cultures as below. Fall precautions and supportive care. Consider MRI imaging (2) Diabetes mellitus Qualifiers: Diabetes mellitus type: type 2 Diabetes mellitus complication status: with hyperglycemia Is this a current diagnosis for this admission?: Yes Plan: The patient's metformin is held while admitted. He is placed on a consistent carb diet with Accu-Cheks before meals and at bed time. He is started on 70/30 10 units twice daily at breakfast and dinner with Humalog for sliding scale coverage. Hypoglycemia protocols are in place. (3) Bacteremia Is this a current diagnosis for this admission?: Yes Plan: Blood cultures 2/4 bottles (04/18/18) growing gram-positive cocci in pairs. Repeat blood cultures obtained this afternoon are pending. WBCs remain normal, however the patient is febrile with a TMax 103.1 in the last 24 hours. Chest x-ray and urinalysis are unremarkable. Spoke with surgery; very low suspicion that the source of his infection is related to his bilateral foot ulcerations. CT of the abdomen demonstrated mildly dilated fluid-filled loops of the small bowel in the left hemiabdomen; differential include enteritis versus partial small bowel obstruction (likely source of the patient's fever, positive cultures, and metabolic encephalopathy) He has been empirically placed on IV vancomycin and cefepime. Will adjust as cultures result. (4) Opiate dependence, continuous Is this a current diagnosis for this admission?: Yes Plan: Secondary to chronic pain. To the patient's altered mental status; will avoid opiate medications. Continue as needed Tylenol and scheduled gabapentin for pain. (5) Chronic pain Is this a current diagnosis for this admission?: Yes Plan: Management as above. (6) Anxiety Is this a current diagnosis for this admission?: Yes Plan: We will continue the patient's home dose of diazepam to prevent benzodiazepine withdrawal. Supportive care. 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 The patient has deep stage II pressure ulcerations to bilateral heels; low suspicion for osteomyelitis. Wound care per surgery's recommendations. Tight glycemic control. (8) Partial small bowel obstruction Is this a current diagnosis for this admission?: Yes Plan: CT of the abdomen demonstrated mildly dilated fluid-filled loops of the small bowel in the left hemiabdomen; differential include enteritis versus partial small bowel obstruction (likely source of the patient's fever, positive cultures, and metabolic encephalopathy) The patient was treated with a Fleet enema and lactulose overnight; no movement today. Patient and family are asking to advance diet; will advance cautiously to a full liquid diet. Colace daily. Monitor for worsening symptoms indicating need for n.p.o. status, NG tube placement, and surgical reconsultation. - Time Time Spent with patient: 35 or more minutes Medications reviewed and adjusted accordingly: Yes Anticipated discharge: Home with Homehealth
[2018-04-19] MEDS: VANCOMYCIN HCL 1,250 MG in DEXTROSE 5%-WATER 250 ML IV SCH (19:10)
[2018-04-19] MEDS: INSULIN LISPRO 100 UNIT/ML 3 ML VIAL SUBCUT PRN (19:16)
[2018-04-19] MEDS: COLLAGENASE CLOSTRIDIUM HIST. OINT 30 GM TOP SCH (20:47)
[2018-04-20 05:30] LABS: HEMATOCRIT 37.1 % (37.9-51.0); HEMOGLOBIN 12.7 g/dL (13.5-17.0); MEAN CORPUSCULAR HEMOGLOBIN 30.1 pg (27.0-33.4); MEAN CORPUSCULAR HGB CONC 34.2 g/dL (32.0-36.0); MEAN CORPUSCULAR VOLUME 88 fl (80-97); PLATELET COUNT 142 10^3/uL (150-450); RED BLOOD COUNT 4.22 10^6/uL (4.35-5.55); RED CELL DISTRIBUTION WIDTH 13.3 % (11.5-14.0); WHITE BLOOD COUNT 7.1 10^3/uL (4.0-10.5)
[2018-04-20] MEDS: VANCOMYCIN HCL 1,250 MG in DEXTROSE 5%-WATER 250 ML IV SCH (05:45)
[2018-04-20] MEDS: GABAPENTIN 300 MG CAPSULE PO SCH ×3 (05:46→21:56)
[2018-04-20] MEDS: CEFEPIME 1 GM/D5W RTU 1 GM/50 ML RTUPB IV SCH ×2 (05:46→17:43)
[2018-04-20] MEDS: HEPARIN SOD (PORCINE) 5,000 UNIT/ML 1 ML SYRINGE SUBCUT SCH ×3 (05:46→22:37)
[2018-04-20] MEDS: CLONAZEPAM 1 MG TABLET PO PRN ×2 (05:48→19:47)
[2018-04-20] MEDS: ACETAMINOPHEN 325 MG TABLET PO PRN (07:54)
[2018-04-20] MEDS: INSULIN LISPRO 100 UNIT/ML 3 ML VIAL SUBCUT PRN ×3 (08:13→17:41)
[2018-04-20] MEDS: HUM INSULIN NPH/REG INSULIN HM 100 UNIT/1 ML 3 ML SUBCUT SCH (08:15)
[2018-04-20] MEDS: DOCUSATE SODIUM 100 MG CAPSULE PO SCH (09:48)
[2018-04-20 09:59] LABS: ANION GAP 9 (5-19); BLOOD UREA NITROGEN 12 mg/dL (7-20); CALCIUM 8.7 mg/dL (8.4-10.2); CARBON DIOXIDE 26 mmol/L (22-30); CHLORIDE 102 mmol/L (98-107); GLUCOSE 191 mg/dL (75-110); POTASSIUM 3.7 mmol/L (3.6-5.0); SODIUM 137.3 mmol/L (137-145)
[2018-04-20] MEDS ORDERED: OXYCODONE HCL IR 5 MG TABLET PO PRN (14:09)
--- NOTE | 2018-04-20 14:33 | PDOC PROGRESS REPORT ---
Subjective Progress Note for:: 04/20/18 Subjective:: The patient is a 68-year-old male with a past medical history of diabetes mellitus, GERD, arthritis, opiate dependent chronic pain, and benzodiazepine dependent anxiety who was admitted 04/18/18 after a mechanical fall and found to have acute encephalopathy, fecal impaction, and bilateral diabetic foot ulcers. The patient was seen on morning rounds. He was found resting in bed comfortably on room air. He is awake, oriented to self, place, and portions of his si tuation and events leading up to him being admitted. He tells me that his primary complaint today is neck and shoulder discomfort that he states is not his typical chronic pain; relating it to discomfort with the pillows in the bed. He does ask for pain medications. He also reports abdominal fullness, nausea and emesis. He tells me that he was unable to eat more than 2 or 3 bites of his regular diet due to abdominal discomfort. He is uncertain as to whether or not he has had a bowel movement and does report constipation. He denies fever, chills, headache, dizziness, chest pain, palpitations, dyspnea. He has no other questions or concerns at this time. No concerns per nursing. Reason For Visit: AMS PSBO R HEEL OSTEO,FECAL IMPACTION CHRONIC PAIN Physical Exam Vital Signs: Temp Pulse Resp BP Pulse Ox 97.9 F 72 18 110/53 L 99 04/20/18 11:42 04/20/18 11:42 04/20/18 11:42 04/20/18 11:42 04/20/18 11:42 Intake & Output 04/19/18 04/20/18 04/21/18 06:59 06:59 06:59 Intake Total 3600 1890 250 Output Total 1050 3300 Balance 2550 -1410 250 Weight 87.6 kg 92.8 kg General appearance: PRESENT: no acute distress, well-developed, well-nourished Head exam: PRESENT: normocephalic, other - Abrasion to right side of forehead; no ecchymosis Eye exam: PRESENT: conjunctiva pink, EOMI, PERRLA. ABSENT: scleral icterus Ear exam: PRESENT: normal external ear exam Mouth exam: PRESENT: moist, tongue midline Neck exam: ABSENT: carotid bruit, JVD, lymphadenopathy, thyromegaly Respiratory exam: PRESENT: clear to auscultation azeb, symmetrical, unlabored. ABSENT: rales, rhonchi, wheezes Cardiovascular exam: PRESENT: RRR, +S1, +S2. ABSENT: diastolic murmur, rubs, systolic murmur Pulses: PRESENT: normal dorsalis pedis pul Vascular exam: PRESENT: normal capillary refill GI/Abdominal exam: PRESENT: distended, normal bowel sounds, soft. ABSENT: guarding, mass, organolmegaly, rebound, tenderness Rectal exam: PRESENT: deferred Extremities exam: PRESENT: full ROM. ABSENT: calf tenderness, clubbing, pedal edema Neurological exam: PRESENT: alert, awake, oriented to person, oriented to place, oriented to situation, CN II-XII grossly intact, other - Intermittent confusion. ABSENT: oriented to time, motor sensory deficit Psychiatric exam: PRESENT: appropriate affect, normal mood. ABSENT: homicidal ideation, suicidal ideation Skin exam: PRESENT: dry, intact, warm. ABSENT: cyanosis, rash Results Laboratory Results: 04/20/18 04:37 04/20/18 04:37 04/20/18 04/20/18 04:37 04:37 WBC 7.1 RBC 4.22 L Hgb 12.7 L Hct 37.1 L MCV 88 MCH 30.1 MCHC 34.2 RDW 13.3 Plt Count 142 L Sodium 137.3 Potassium 3.7 Chloride 102 Carbon Dioxide 26 Anion Gap 9 BUN 12 Creatinine 0.71 Est GFR ( Amer) > 60 Est GFR (Non-Af Amer) > 60 Glucose 191 H Calcium 8.7 04/18/18 04/18/18 04/18/18 17:30 17:30 23:00 Creatine Kinase 164 200 H CK-MB (CK-2) 2.28 Troponin I < 0.012 04/18/18 04/19/18 04/19/18 23:00 05:57 05:57 Creatine Kinase 250 H CK-MB (CK-2) 2.12 1.69 Troponin I < 0.012 < 0.012 04/19/18 04/19/18 11:40 11:40 Creatine Kinase 315 H CK-MB (CK-2) 1.65 Troponin I < 0.012 Impressions: Chest X-Ray 04/18/18 18:12 IMPRESSION: Low lung volumes. Hilar adenopathy. Borderline heart size without pulmonary edema. Cervical Spine CT 04/18/18 18:47 IMPRESSION: CHRONIC DEGENERATIVE CHANGES. NO ACUTE FINDINGS. Foot X-Ray 04/18/18 18:47 IMPRESSION: Calcaneal spur. No acute findings. No evidence of osteomyelitis. Head CT 04/18/18 18:47 IMPRESSION: NORMAL BRAIN CT WITHOUT CONTRAST. EVIDENCE OF ACUTE STROKE: NO. Abdomen/Pelvis CT 04/18/18 20:11 IMPRESSION: Mildly dilated fluid-filled loops of small bowel in the left hemiabdomen. Differential possibilities include enteritis versus partial small bowel obstruction. Findings also suggestive of constipation. Assessment & Plan - Diagnosis (1) Encephalopathy acute Is this a current diagnosis for this admission?: Yes Plan: Improved; patient is now awake, alert, oriented to self, place, and portions of situation. He is conversationally appropriate at most times, but does become intermittently confused with labile mood and impulsiveness. Likely multifactorial secondary to opiate pain medication use (unintentional overuse), Klonopin overuse or withdrawal (family members unable to locate the patient's medication bottle), infection (patient is febrile with bacteremia and 2/4 bottles), and fecal impaction. Head CT Demonstrated a normal brain without evidence of acute stroke. CXR showed low lung volumes with hilar adenopathy and borderline heart size without pulmonary edema. He is admitted to the medical floor on continuous cardiac telemetry. We will resume his home dose Klonopin. Judicious use of opiate/sedating medications. Rehydrate with IV fluids. Antibiotics and cultures as below. Fall precautions and supportive care. Consider MRI imaging Will advise that the patient no longer manage his own medications as there is a strong likelihood of opiate and benzodiazepine misuse/overuse, as well as, medication noncompliance for management of his diabetes mellitus. Discharge planning will be consulted to evaluate for home health nursing. (2) Diabetes mellitus Qualifiers: Diabetes mellitus type: type 2 Diabetes mellitus complication status: with hyperglycemia Is this a current diagnosis for this admission?: Yes Plan: A1c 11.8% The patient's metformin is held while admitted. He is placed on a consistent carb diet with Accu-Cheks before meals and at bedtime. He is started on Lantus 12 units daily with Humalog for sliding scale coverage. Hypoglycemia protocols are in place. We will ask for the registered dietitian and patient educator to meet with the patient. (3) Bacteremia Is this a current diagnosis for this admission?: Yes Plan: Blood cultures 2/4 bottles (04/18/18) grew Group B Beta strep. Repeat blood cultures (04/19/18) have no growth at 24 hours. WBCs remain normal, however the patient is febrile with a TMax 103.1 in the last 48 hours. Chest x-ray and urinalysis are unremarkable. Spoke with surgery; very low suspicion that the source of his infection is related to his bilateral foot ulcerations. CT of the abdomen demonstrated mildly dilated fluid-filled loops of the small bowel in the left hemiabdomen; differential include enteritis versus partial small bowel obstruction (likely source of the patient's fever, positive cultures, and metabolic encephalopathy) He has been empirically placed on IV vancomycin and cefepime. Will discontinue vancomycin. (4) Opiate dependence, continuous Is this a current diagnosis for this admission?: Yes Plan: Secondary to chronic pain. Resume low dose oxycodone 5 mg q4 hours as needed for pain. Continue as needed Tylenol and scheduled gabapentin for pain. Robaxin 500 mg four times daily for muscle spasms. (5) Chronic pain Is this a current diagnosis for this admission?: Yes Plan: Management as above. (6) Anxiety Is this a current diagnosis for this admission?: Yes Plan: We will continue the patient's home dose of diazepam to prevent benzodiazepine withdrawal. Supportive care. 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 The patient has deep stage II pressure ulcerations to bilateral heels; low suspicion for osteomyelitis. Wound care per surgery's recommendations. Tight glycemic control. (8) Partial small bowel obstruction Is this a current diagnosis for this admission?: Yes Plan: CT of the abdomen demonstrated mildly dilated fluid-filled loops of the small bowel in the left hemiabdomen; differential include enteritis versus partial small bowel obstruction (likely source of the patient's fever, positive cultures, and metabolic encephalopathy) The patient was treated with a Fleet enema and lactulose overnight; bowel movements x 2. Patient and family are asking to advance diet; advanced to regular consistency overnight?. Will return to full liquid as patient reports abdominal discomfort and nausea. Repeat Lactulose x1 today. Colace daily. Monitor for worsening symptoms indicating need for n.p.o. status, NG tube placement, and surgical reconsultation. - Time Time Spent with patient: 15-24 minutes Medications reviewed and adjusted accordingly: Yes Anticipated discharge: Home with Homehealth Within: within 48 hours
[2018-04-20] MEDS ORDERED: LACTULOSE SYRUP 20 GM/30 ML UDCUP PO ONE (16:00)
[2018-04-20] MEDS ORDERED: METHOCARBAMOL 500 MG TABLET PO ONE (16:00)
[2018-04-20] MEDS: COLLAGENASE CLOSTRIDIUM HIST. OINT 30 GM TOP SCH (17:41)
--- NOTE | 2018-04-20 20:15 | PDOC PROGRESS REPORT ---
Subjective Progress Note for:: 04/20/18 Subjective:: This is a 68-year-old male with altered mental status and bacteremia. The patient also reports abdominal pain, nausea, vomiting, and bilateral heel ulcers. The patient has diabetic neuropathy and cannot feel his feet. The patient was unaware that he had ulcers to the foot. These ulcers are status post debridement yesterday by Dr. Daniels. He reports a large bowel movement with enemas, however still feels bloated and occasionally nauseated. The patient suffers from chronic constipation due to opioid use. The patient denies chest pain, shortness of breath, fevers, chills, headache. He is more conversive today. Reason For Visit: AMS PSBO R HEEL OSTEO,FECAL IMPACTION CHRONIC PAIN Physical Exam Vital Signs: Temp Pulse Resp BP Pulse Ox 97.4 F 69 18 110/90 H 100 04/20/18 15:28 04/20/18 16:00 04/20/18 16:00 04/20/18 15:28 04/20/18 16:00 Intake & Output 04/19/18 04/20/18 04/21/18 06:59 06:59 06:59 Intake Total 3600 1890 1334 Output Total 1050 3300 Balance 2550 -1410 1334 Weight 87.6 kg 92.8 kg General appearance: PRESENT: no acute distress, cooperative Head exam: PRESENT: atraumatic, normocephalic Mouth exam: PRESENT: moist, neck supple Teeth exam: PRESENT: poor dentation Neck exam: ABSENT: meningismus, tenderness, thyromegaly, tracheal deviation Respiratory exam: PRESENT: unlabored. ABSENT: chest wall tenderness, tachypnea Cardiovascular exam: PRESENT: RRR Vascular exam: ABSENT: pallor GI/Abdominal exam: PRESENT: distended - Mild, soft. ABSENT: tenderness Rectal exam: PRESENT: deferred Extremities exam: PRESENT: other - Bilateral heel ulcers, stage II/III. Neurological exam: PRESENT: alert, awake, oriented to person, oriented to place, oriented to time, oriented to situation, CN II-XII grossly intact, motor sensory deficit - Sensory deficit bilateral feet. Psychiatric exam: ABSENT: agitated, anxious, depressed Focused psych exam: ABSENT: delusional Skin exam: ABSENT: cyanosis, jaundice Results Laboratory Results: 04/20/18 04:37 04/20/18 04:37 04/20/18 04/20/18 04:37 04:37 WBC 7.1 RBC 4.22 L Hgb 12.7 L Hct 37.1 L MCV 88 MCH 30.1 MCHC 34.2 RDW 13.3 Plt Count 142 L Sodium 137.3 Potassium 3.7 Chloride 102 Carbon Dioxide 26 Anion Gap 9 BUN 12 Creatinine 0.71 Est GFR ( Amer) > 60 Est GFR (Non-Af Amer) > 60 Glucose 191 H Calcium 8.7 04/18/18 04/18/18 04/18/18 17:30 17:30 23:00 Creatine Kinase 164 200 H CK-MB (CK-2) 2.28 Troponin I < 0.012 04/18/18 04/19/18 04/19/18 23:00 05:57 05:57 Creatine Kinase 250 H CK-MB (CK-2) 2.12 1.69 Troponin I < 0.012 < 0.012 04/19/18 04/19/18 11:40 11:40 Creatine Kinase 315 H CK-MB (CK-2) 1.65 Troponin I < 0.012 Impressions: Chest X-Ray 04/18/18 18:12 IMPRESSION: Low lung volumes. Hilar adenopathy. Borderline heart size without pulmonary edema. Cervical Spine CT 04/18/18 18:47 IMPRESSION: CHRONIC DEGENERATIVE CHANGES. NO ACUTE FINDINGS. Foot X-Ray 04/18/18 18:47 IMPRESSION: Calcaneal spur. No acute findings. No evidence of osteomyelitis. Head CT 04/18/18 18:47 IMPRESSION: NORMAL BRAIN CT WITHOUT CONTRAST. EVIDENCE OF ACUTE STROKE: NO. Abdomen/Pelvis CT 04/18/18 20:11 IMPRESSION: Mildly dilated fluid-filled loops of small bowel in the left hemiabdomen. Differential possibilities include enteritis versus partial small bowel obstruction. Findings also suggestive of constipation. Assessment & Plan - Diagnosis (1) Decubitus ulcer of heel, bilateral, stage 2 Is this a current diagnosis for this admission?: Yes (2) Therapeutic opioid induced constipation Is this a current diagnosis for this admission?: Yes (3) Abdominal pain Qualifiers: Abdominal location: generalized Qualified Code(s): R10.84 - Generalized abdominal pain Is this a current diagnosis for this admission?: Yes - Plan Summary Plan Summary: This is a 68-year-old male with bilateral heel ulcers. The patient is very noncompliant. Boots have been ordered to assist with cushioning, however he will not wear them. I have instructed the nurses to keep his heels elevated off the bed, however he will not comply. The patient has been educated regarding the importance of reducing pressure on the heels. I have inspected the wounds today. There is no active purulence or obvious necrosis. The patient reports occasional nausea and intermittent abdominal pain. On exam today, I cannot elicit any specific tenderness. The patient had a large amount of stool within the colon on his admission CT scan. I will order abdominal x- rays. The patient did have a large bowel movement yesterday. Repeat enemas, if needed. Will follow.
--- NOTE | 2018-04-20 21:11 | RADIOLOGY REPORT (SQ) ---
EXAM DESCRIPTION: CHEST 2 VIEWS COMPLETED DATE/TIME: 04/20/2018 8:51 pm REASON FOR STUDY: difficulty swalling, coughing COMPARISON: 04/18/2018 EXAM PARAMETERS: NUMBER OF VIEWS: two views TECHNIQUE: Digital Frontal and Lateral radiographic views of the chest acquired. RADIATION DOSE: NA LIMITATIONS: none FINDINGS: LUNGS AND PLEURA: New heterogeneous opacity of the left lung base. MEDIASTINUM AND HILAR STRUCTURES: No masses or contour abnormalities. HEART AND VASCULAR STRUCTURES: Heart normal size. No evidence for failure. BONES: No acute findings. HARDWARE: None in the chest. OTHER: No other significant finding. IMPRESSION: New heterogeneous opacity of the left lung base, concerning for infection or aspiration. TECHNICAL DOCUMENTATION: JOB ID: [id number] [employer]- All Rights Reserved Reading location - IP/workstation name: [email or web address]
[2018-04-20] MEDS: INSULIN GLARGINE,HUM.REC.ANLOG 300 UNIT/3 ML INSULN.PEN SUBCUT SCH (21:56)
[2018-04-20] MEDS: METHOCARBAMOL 500 MG TABLET PO SCH (21:56)
[2018-04-20] MEDS: HYDROMORPHONE HCL INJ/PF 2 MG/ML AMPULE SUBCUT PRN (23:53)
[2018-04-21] MEDS: HYDROMORPHONE HCL INJ/PF 2 MG/ML AMPULE SUBCUT PRN ×2 (03:58→09:42)
[2018-04-21 05:20] LABS: HEMOGLOBIN 11.6 g/dL (13.5-17.0); MEAN CORPUSCULAR HGB CONC 34.1 g/dL (32.0-36.0); MEAN CORPUSCULAR VOLUME 88 fl (80-97); PLATELET COUNT 147 10^3/uL (150-450); RED BLOOD COUNT 3.87 10^6/uL (4.35-5.55); RED CELL DISTRIBUTION WIDTH 13.7 % (11.5-14.0); WHITE BLOOD COUNT 8.7 10^3/uL (4.0-10.5)
[2018-04-21] MEDS: HEPARIN SOD (PORCINE) 5,000 UNIT/ML 1 ML SYRINGE SUBCUT SCH ×3 (05:20→21:34)
[2018-04-21] MEDS: GABAPENTIN 300 MG CAPSULE PO SCH ×3 (05:21→21:38)
[2018-04-21] MEDS: CEFEPIME 1 GM/D5W RTU 1 GM/50 ML RTUPB IV SCH ×2 (05:21→21:33)
[2018-04-21 05:40] LABS: ANION GAP 11 (5-19); BLOOD UREA NITROGEN 12 mg/dL (7-20); CALCIUM 8.4 mg/dL (8.4-10.2); CARBON DIOXIDE 23 mmol/L (22-30); CHLORIDE 108 mmol/L (98-107); GLUCOSE 171 mg/dL (75-110); POTASSIUM 3.4 mmol/L (3.6-5.0); SODIUM 141.9 mmol/L (137-145)
[2018-04-21] MEDS ORDERED: CLONAZEPAM 1 MG TABLET PO PRN (08:21)
--- NOTE | 2018-04-21 08:43 | PDOC PROGRESS REPORT ---
Subjective Progress Note for:: 04/21/18 Subjective:: Donna was admitted on 18 April with chronic constipation abdominal bloating and bilateral heel ulcers. Is a diabetic with a peripheral neuropathy and numbness to his feet and because of chronic pressure developed bilateral heel ulcers he also had chronic constipation. He was treated with rectal enema for yesterday as well as a wound debridement of both heels by Dr. Daniels days ago. Only the patient is feeling better sitting up in the chair a large bowel m ovement after his enemas and has no more complaints of abdominal bloating. Currently now a diabetic diet. He is tolerating his diet however he does complain of some reflux. Has no complaints of heel pain Reason For Visit: AMS PSBO R HEEL OSTEO,FECAL IMPACTION CHRONIC PAIN Physical Exam Vital Signs: Temp Pulse Resp BP Pulse Ox 98.2 F 90 19 125/67 98 04/21/18 04:00 04/21/18 04:00 04/21/18 04:00 04/21/18 04:00 04/21/18 04:00 Intake & Output 04/20/18 04/21/18 04/22/18 06:59 06:59 06:59 Intake Total 1890 1734 Output Total 3300 550 Balance -1410 1184 Weight 92.8 kg GI/Abdominal exam: PRESENT: normal bowel sounds, soft Extremities exam: PRESENT: other - Both dressings were taken off of his heels. Right side there is a small dry eschar that appears to be nonfluctuant from underneath in the center of a heel ulcer is approximately 3-4 cm diameter with a good granulation bed on the left side the heel ulcer is granulating well without any evidence of infection Results Laboratory Results: 04/21/18 04:52 04/21/18 04:52 04/20/18 04/21/18 04/21/18 04:37 04:52 04:52 WBC 8.7 RBC 3.87 L Hgb 11.6 L Hct 34.0 L MCV 88 MCH 30.0 MCHC 34.1 RDW 13.7 Plt Count 147 L Sodium 137.3 141.9 Potassium 3.7 3.4 L Chloride 102 108 H Carbon Dioxide 26 23 Anion Gap 9 11 BUN 12 12 Creatinine 0.71 0.68 Est GFR ( Amer) > 60 > 60 Est GFR (Non-Af Amer) > 60 > 60 Glucose 191 H 171 H Calcium 8.7 8.4 04/18/18 04/18/18 04/18/18 17:30 17:30 23:00 Creatine Kinase 164 200 H CK-MB (CK-2) 2.28 Troponin I < 0.012 04/18/18 04/19/18 04/19/18 23:00 05:57 05:57 Creatine Kinase 250 H CK-MB (CK-2) 2.12 1.69 Troponin I < 0.012 < 0.012 04/19/18 04/19/18 11:40 11:40 Creatine Kinase 315 H CK-MB (CK-2) 1.65 Troponin I < 0.012 Impressions: Cervical Spine CT 04/18/18 18:47 IMPRESSION: CHRONIC DEGENERATIVE CHANGES. NO ACUTE FINDINGS. Foot X-Ray 04/18/18 18:47 IMPRESSION: Calcaneal spur. No acute findings. No evidence of osteomyelitis. Head CT 04/18/18 18:47 IMPRESSION: NORMAL BRAIN CT WITHOUT CONTRAST. EVIDENCE OF ACUTE STROKE: NO. Abdomen/Pelvis CT 04/18/18 20:11 IMPRESSION: Mildly dilated fluid-filled loops of small bowel in the left hemiabdomen. Differential possibilities include enteritis versus partial small bowel obstruction. Findings also suggestive of constipation. Chest X-Ray 04/20/18 00:00 IMPRESSION: New heterogeneous opacity of the left lung base, concerning for infection or aspiration. Assessment & Plan - Diagnosis (1) Abdominal pain Qualifiers: Abdominal location: generalized Qualified Code(s): R10.84 - Generalized abdominal pain Is this a current diagnosis for this admission?: Yes (2) Bacteremia Is this a current diagnosis for this admission?: Yes (3) Heel ulcer due to secondary DM Is this a current diagnosis for this admission?: Yes (4) Decubitus ulcer of heel, bilateral, stage 2 Is this a current diagnosis for this admission?: Yes - Time Time Spent with patient: 25-34 minutes - Plan Summary Plan Summary: Current plans are to dressing changes of both heels At this point his constipation is resolved and is tolerating a diabetic diet. Is also seen by these pathology today for question of difficulty swallowing. I was present during the questioning by the speech pathologist and we both felt that this is secondary to reflux and does not appear to be complaining of showing evidence of aspiration. Pathologist recommended a upper GI as an initial workup for his swallowing difficulty
[2018-04-21] MEDS: DOCUSATE SODIUM 100 MG CAPSULE PO SCH (10:31)
[2018-04-21] MEDS: METHOCARBAMOL 500 MG TABLET PO SCH ×4 (10:31→21:38)
--- NOTE | 2018-04-21 10:46 | RADIOLOGY REPORT (SQ) ---
EXAM DESCRIPTION: ACUTE ABDOMEN SERIES COMPLETED DATE/TIME: 04/21/2018 10:17 am REASON FOR STUDY: Abd pain, fecal impaction COMPARISON: Chest films 02/10/2013, 04/20/2018 NUMBER OF VIEWS: Three views. TECHNIQUE: Frontal chest, supine abdomen and upright abdomen radiographic images acquired. LIMITATIONS: None. FINDINGS: CHEST: Left basilar airspace disease persists, worrisome for residual pneumonia. Right lung grossly clear. No pleural effusions. No pneumothorax. FREE AIR: None. No abnormal gas collections. BOWEL GAS PATTERN: Nonobstructive pattern. No dilated loops or air fluid levels. CALCIFICATIONS: No suspicious calcifications. HARDWARE: None in the abdomen. SOFT TISSUES: No gross mass or suggestion of organomegaly. BONES: No acute fracture. No worrisome bone lesions. OTHER: No other significant finding. IMPRESSION: Persistent left basilar airspace disease worrisome for pneumonia. Grossly nonobstructive bowel gas pattern. TECHNICAL DOCUMENTATION: JOB ID: [id number] [employer]- All Rights Reserved Reading location - IP/workstation name: [email or web address]
--- NOTE | 2018-04-21 10:49 | RADIOLOGY REPORT (SQ) ---
EXAM DESCRIPTION: COOKIE SWALLOW COMPLETED DATE/TIME: 04/21/2018 10:31 am REASON FOR STUDY: Difficulty swalling COMPARISON: None. TECHNIQUE: Videofluoroscopic swallowing examination was performed in conjunction with speech patholo gy. Videofluoroscopic imaging was obtained and reviewed and these are the findings: RADIATION DOSE: 2.3 minutes 1 digital lateral cervical spine images saved to PACS. LIMITATIONS: None FINDINGS: The patient was brought into the fluoro room and placed upright on a modified barium swall ow chair. The patient was then given multiple consistencies mixed with barium to swallow under live fluoroscopic video guidance. According to the Speech Pathologist there was penetration of the laryng eal vestibule, trace subglottic aspiration with thin liquid, pudding consistency. Cookie coated in b arium sat in the vallecular and piriform recesses before being pushed into the upper esophagus with m ultiple swallows. IMPRESSION: None tail penetration and subglottic aspiration with multiple consistencies. PLEASE SEE SPEECH PATHOLOGIST REPORT FOR OTHER FINDINGS AND RECOMMENDATIONS. COMMENT: Quality ID [id number]: Final reports for procedures using fluoroscopy that document radiation exp osure indices, or exposure time and number of fluorographic images (if radiation exposure indices are not available) TECHNICAL DOCUMENTATION: JOB ID: [id number] [employer]- All Rights Reserved Reading location - IP/workstation name: [email or web address]
[2018-04-21] MEDS: NORMAL SALINE 1000 ML 1,000 ML IV PRN ×2 (14:27→19:08)
--- NOTE | 2018-04-21 14:49 | ST Inp Modified Barium Swallow ---
Medical Diagnosis - Medical Diagnoses Medical Diagnosis Description & ICD-10 Code(s): partial small bowel obstruction, dysphagia (R13.10) Inpatient [facility] [place] - General Date: 04/21/18 Date of Onset: 04/18/18 - History History Obtained From: Patient -: Medical Medications: Medications Reviewed Allergies: No known allergies - Subjective Current Nutritional Means: PO Current PO Diet: Regular - with thin liquids Current Symptoms: Coughing, Pneumonia - Objective Assessment: Upright, Left Lateral - Food Trials Food Trials Used: Thin liquids, Pureed, Regular The Patient: Was Able to Self Feed - Assessment Labial Function: Within Normal Limits Lingual Function: Within Normal Limits Mandibular Function: Within Normal Limits Dentition: Full Velo-Pharyngeal Function: Not assessed Laryngeal Function: Volitional Cough, clear voicing - Pharyngeal Stage Initiation of Pharyngeal Stage: Delayed Decreased Laryngeal Elevation: Yes Reduced Velo-Pharyngeal Closure: no Reduced Pressure Generation: Yes Reduced Tongue Base Retraction: Yes Pre-Swallowing Pooling in Pyriforms: Significant - Pooling in pyriforms and in trachea above vocal folds with thin liquid when patient tilted head back. No pre-swallow pooling when cued to keep head in neutral position or to tuck chin. Reduced Thyro-Hyiod Approximation: Yes Multiple Swallows With: Ineffective Clearance - multiple swallows effective to clear pudding residue. Liquid wash reduced residue of regular solid, but did not clear completely. Patient coughed residue out of mouth. Post Swallow Residuals in Valleculae: Significant Post Swallow Residuals in Pyriforms: Significant - moderate - significant with pudding and regular solid - Impression/Summary Laryngeal Penetration: Yes, Flash, Silent, during swallow, after swallow - flash penetration during swallow with silent penetration after swallow Tracheal Aspiration: yes - Difficult to assess as patient's shoulder obstructed view, but patient at high risk for silent aspiration of residue of thin liquid and puree, silent Productive Cough: No Effective Compensatory Strategies: chin tuck - minimized residue but did not clear completely, hard swallow - minimized residue, but did not clear completely Patient Presents With: Pharyngeal stage dysph., Severe Risk of Aspiration: Severe Risk of Nutritional Compromise: Severe - Recommendations NPO: yes Solid Diet Recommendations: Pureed Liquid Diet Recommendations: Thin - Patient at severe risk for silent aspiration across all consistencies. NPO would be safest diet, but patient is unlikely to be compliant with recommendation as he has frequently stated that he will go ho me against medical advice. For safest PO diet, recommend puree with thin liquid. As patient is at high risk to aspirate across all consistentcies, recommend thin liquid as it is less likely to cause aspiration pneumonia. Patient did not clear regular solid despite multiple swallows and liquid wash, but cleared puree when cued with multiple swallows. Discussed recommendations with patient's doctor. Strict Aspitarion Precautions: Yes Dysphagia Therapy with CHEMICAL PACKAGER: Yes, Outpatient Recommended Techniques: Fully Upright During Meal, Dry Swallow After Bite, Small Bites and Sips, Alternate Bites/Sips, Chin Tuck to Swallow - Time Total Time: 30 Total Timed Minutes: 30
--- NOTE | 2018-04-21 16:13 | PSYCHOLOGICAL NOTE ---
Psych Note - Psych Note Date seen by psych provider: 04/21/18 Time seen by psych provider: 14:45 Psych Note: Reason for Consult: capacity ADELINA HANDY is a 68 year old male with a past medical history of diabetes, right heel osteomyelitis, opiate dependent chronic pain, benzodiazepine and dependent anxiety. At this time the patient lacked capacity; report will be submitted. Medication recommendation per [facility]'s contracted psychiatrist Dr. Rickie HERRERA are as follows please decrease Neurontin 600mg three times daily
[2018-04-21] MEDS ORDERED: DIPHENHYDRAMINE HCL 50 MG/ML VIAL IV PRN (16:34)
[2018-04-21] MEDS ORDERED: HALOPERIDOL LACTATE INJ 5 MG/1 ML VIAL IV PRN (16:34)
--- NOTE | 2018-04-21 17:16 | PDOC PROGRESS REPORT ---
Subjective Progress Note for:: 04/21/18 Subjective:: The patient is a 68-year-old male with a past medical history of diabetes mellitus, GERD, arthritis, opiate dependent chronic pain, and benzodiazepine dependent anxiety who was admitted 04/18/18 after a mechanical fall and found to have acute encephalopathy, fecal impaction, and bilateral diabetic foot ulcers. The patient was seen on morning rounds. He was found resting in the recliner comfortably on room air. He is awake, oriented to self, place, time, and most of his situation. He is able to rationalize refusal of MRI, antibiotics, and desire to discharge to home; however, it is a very convoluted conversation and I am concerned that the patient does not actually have capacity. "You don't need to do a MRI of my head to know I have pneumonia. And if I have pneumonia, I wouldn't want to know, my dad of that. I'm 68 years old and if I'm going to , I'll just do it." Fortunately, his family members arrive and are agreeable to a psychiatric review for capacity. They are made aware that the patient failed all phases of his barium swallow which has prompted evaluation for subacute CVA given his recent increase in confusion/impulsiveness, falls, and aspiration resulting in LLL PNA. He denies fever, chills, headache, dizziness, chest pain, palpitations, dyspnea, orthopnea, cough. He does endorse abdominal fullness and nausea, without vomi ting. Reason For Visit: AMS PSBO R HEEL OSTEO,FECAL IMPACTION CHRONIC PAIN Physical Exam Vital Signs: Temp Pulse Resp BP Pulse Ox 97.8 F 74 17 133/72 H 100 04/21/18 15:36 04/21/18 15:36 04/21/18 15:36 04/21/18 15:36 04/21/18 15:36 Intake & Output 04/20/18 04/21/18 04/22/18 06:59 06:59 06:59 Intake Total 1890 1734 0 Output Total 3300 550 Balance -1410 1184 0 Weight 92.8 kg General appearance: PRESENT: no acute distress, well-developed, well-nourished - overweight. ABSENT: cooperative Head exam: PRESENT: atraumatic, normocephalic Eye exam: PRESENT: conjunctiva pink, EOMI, PERRLA. ABSENT: scleral icterus Ear exam: PRESENT: normal external ear exam Mouth exam: PRESENT: moist, tongue midline Neck exam: PRESENT: tenderness - posterior neck radiates to L shoulder. ABSENT: carotid bruit, JVD, lymphadenopathy, meningismus, thyromegaly Respiratory exam: PRESENT: rhonchi, symmetrical, unlabored, other - Room air. ABSENT: rales, wheezes Cardiovascular exam: PRESENT: RRR. ABSENT: diastolic murmur, rubs, systolic murmur Pulses: PRESENT: normal dorsalis pedis pul Vascular exam: PRESENT: normal capillary refill GI/Abdominal exam: PRESENT: distended, normal bowel sounds, soft. ABSENT: guarding, mass, organolmegaly, rebound, tenderness Rectal exam: PRESENT: deferred Extremities exam: PRESENT: full ROM. ABSENT: calf tenderness, clubbing, pedal edema Neurological exam: PRESENT: alert, awake, oriented to person, oriented to place, oriented to time, CN II-XII grossly intact - No facial asymmetry, slurred speech, focal deficits. Brudzinski sign negative, other - Intermittent confusion, impulsivity. ABSENT: oriented to situation, motor sensory deficit Psychiatric exam: PRESENT: agitated, other - impulsive. ABSENT: homicidal ideation, suicidal ideation Focused psych exam: PRESENT: restlessness Skin exam: PRESENT: dry, intact, warm. ABSENT: cyanosis, rash Results Laboratory Results: 04/21/18 04:52 04/21/18 04:52 04/21/18 04/21/18 04:52 04:52 WBC 8.7 RBC 3.87 L Hgb 11.6 L Hct 34.0 L MCV 88 MCH 30.0 MCHC 34.1 RDW 13.7 Plt Count 147 L Sodium 141.9 Potassium 3.4 L Chloride 108 H Carbon Dioxide 23 Anion Gap 11 BUN 12 Creatinine 0.68 Est GFR ( Amer) > 60 Est GFR (Non-Af Amer) > 60 Glucose 171 H Calcium 8.4 04/18/18 18:35 Blood Blood Culture - Final Group B Beta Streptococcus 04/18/18 04/18/18 04/18/18 17:30 17:30 23:00 Creatine Kinase 164 200 H CK-MB (CK-2) 2.28 Troponin I < 0.012 04/18/18 04/19/18 04/19/18 23:00 05:57 05:57 Creatine Kinase 250 H CK-MB (CK-2) 2.12 1.69 Troponin I < 0.012 < 0.012 04/19/18 04/19/18 11:40 11:40 Creatine Kinase 315 H CK-MB (CK-2) 1.65 Troponin I < 0.012 Impressions: Cervical Spine CT 04/18/18 18:47 IMPRESSION: CHRONIC DEGENERATIVE CHANGES. NO ACUTE FINDINGS. Foot X-Ray 04/18/18 18:47 IMPRESSION: Calcaneal spur. No acute findings. No evidence of osteomyelitis. Head CT 04/18/18 18:47 IMPRESSION: NORMAL BRAIN CT WITHOUT CONTRAST. EVIDENCE OF ACUTE STROKE: NO. Abdomen/Pelvis CT 04/18/18 20:11 IMPRESSION: Mildly dilated fluid-filled loops of small bowel in the left hemiabdomen. Differential possibilities include enteritis versus partial small bowel obstruction. Findings also suggestive of constipation. Chest X-Ray 04/20/18 00:00 IMPRESSION: New heterogeneous opacity of the left lung base, concerning for infection or aspiration. Acute Abdomen Series 04/21/18 00:00 IMPRESSION: Persistent left basilar airspace disease worrisome for pneumonia. Grossly nonobstructive bowel gas pattern. Modified Barium Swallow 04/21/18 00:00 IMPRESSION: None tail penetration and subglottic aspiration with multiple consistencies. PLEASE SEE SPEECH PATHOLOGIST REPORT FOR OTHER FINDINGS AND RECOMMENDATIONS. Assessment & Plan - Diagnosis (1) Encephalopathy acute Is this a current diagnosis for this admission?: Yes Plan: Improved; patient is now awake, alert, oriented to self, place, and portions of situation. He is conversationally appropriate at most times, but does become intermittently confused with labile mood and impulsiveness. Likely multifactorial secondary to opiate/benzo missuse, infection (aspiration pneumonia), fecal impaction; now concern for subacute CVA. Head CT Demonstrated a normal brain without evidence of acute stroke. CXR showed low lung volumes with hilar adenopathy and borderline heart size without pulmonary edema. MRI Head and cervical spin is pending. Upgrade to IMCU on continuous cardiac telemetry. Continue low dose Klonopin to prevent withdrawal. Judicious use of opiate/sedating medications. Rehydrate with IV fluids. Antibiotics and cultures as below. Fall precautions and supportive care. The mental health team was consulted for evaluation for capacity; have advised that the patient lacks capacity at this time. The family is informed and are agreeable with patient remaining in house for further imaging and care. Medication recommendations per psychiatry are pending. Will advise that the patient no longer manage his own medications as there is a strong likelihood of opiate and benzodiazepine misuse/overuse, as well as, medication noncompliance for management of his diabetes mellitus. Discharge planning will be consulted to evaluate for home health nursing. (2) Diabetes mellitus Qualifiers: Diabetes mellitus type: type 2 Diabetes mellitus complication status: with hyperglycemia Is this a current diagnosis for this admission?: Yes Plan: A1c 11.8% The patient's metformin is held while admitted. He is placed on a consistent carb diet with Accu-Cheks before meals and at bedtime. He is started on Lantus 12 units daily with Humalog for sliding scale coverage. Hypoglycemia protocols are in place. We will ask for the registered dietitian and patient educator to meet with the patient. (3) Bacteremia Is this a current diagnosis for this admission?: Yes Plan: Blood cultures 2/4 bottles (04/18/18) grew Group B Beta strep. Repeat blood cultures (04/19/18) have no growth at 24 hours. WBCs remain normal, however the patient is febrile with a TMax 103.1 in the last 48 hours. Chest x-ray now demonstrates a left lower lobe pneumonia; likely aspiration. Urinalysis is negative. Spoke with surgery; very low suspicion that the source of his infection is related to his bilateral foot ulcerations. CT of the abdomen demonstrated mildly dilated fluid-filled loops of the small bowel in the left hemiabdomen; differential include enteritis versus partial small bowel obstruction (resolved; patient having bowel movements.) He has been empirically placed on IV vancomycin and cefepime. Will continue cefepime. (4) Opiate dependence, continuous Is this a current diagnosis for this admission?: Yes Plan: Secondary to chronic pain. Resume low dose oxycodone 5 mg q4 hours as needed for pain. Continue as needed Tylenol and scheduled gabapentin for pain. Robaxin 500 mg four times daily for muscle spasms. Lidoderm patches. (5) Chronic pain Is this a current diagnosis for this admission?: Yes Plan: MRI of the cervical spine is pending. Management as above. (6) Anxiety Is this a current diagnosis for this admission?: Yes Plan: We will continue the patient's low-dose Klonopin to prevent benzodiazepine with drawal. Mental health consultation obtained; medication recommendations are pending. Appreciate their evaluation and assistance. Supportive care. 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 The patient has deep stage II pressure ulcerations to bilateral heels; low suspicion for osteomyelitis. Wound care per surgery's recommendations. Tight glycemic control. (8) Partial small bowel obstruction Is this a current diagnosis for this admission?: Yes Plan: Resolved. CT of the abdomen demonstrated mildly dilated fluid-filled loops of the small bowel in the left hemiabdomen; differential include enteritis versus partial small bowel obstruction (likely source of the patient's fever, positive cultures, and metabolic encephalopathy) Acute abdominal series (04/21/2018) demonstrates a grossly nonobstructive bowel gas pattern. Successfully treated with lactulose and fleets enema. Colace daily. Monitor for worsening symptoms indicating need for n.p.o. status, NG tube placement, and surgical reconsultation. (9) Dysphagia Qualifiers: Dysphagia type: pharyngeal phase Qualified Code(s): R13.13 - Dysphagia, pharyngeal phase Is this a current diagnosis for this admission?: Yes Plan: The patient failed modified barium swallow study across all consistencies. Speech therapy recommends n.p.o. with alternate means for nutrition. However, ST recognizes the patient's likelihood of not remaining compliant with these recommendations; therefore advise advancing to thin liquid and pured diet. Will initiate sips and chips. Strict aspiration precautions. Patient currently lacks capacity; will discuss with family members the risks and benefits of alternate means of nutrition (NG versus PEG tube); do not anticipate that the patient would tolerate either of these interventions and would likely remove the lines. May have to concede and advanced to a pured diet, however, would like to make the family aware of the explicit risks of doing so and give them an opportunity to advise. (10) CVA (cerebral vascular accident) Is this a current diagnosis for this admission?: Yes Plan: Strongly suspect that the patient has had a CVA; who presented with fall, increased confusion, impulsiveness, unsteady gait, and dysphasia resulting in aspiration pneumonia. The patient failed all consistencies during his MBSS today. Patient's family deny any history of dysphagia in the past. Patient is upgraded to IMCU Head and C-spine MRI are pending. Echocardiogram is pending. Aspirin 300 mg PA daily. Atorvastatin 80 mg p.o. daily PT/OT/ST consultations. Discharge planning is consulted. (11) Left lower lobe pneumonia Qualifiers: Pneumonia type: aspiration pneumonia Is this a current diagnosis for this admission?: Yes Plan: Secondary to pharyngeal aspiration. Initial blood culture (04/18/2018) 2/4 group B beta strep Repeat blood culture (04/19/2018) no growth at 48 hours. The patient had been empirically placed on IV vancomycin; this was discontinued once the initial culture and sensitivity resulted. Continue IV cefepime; day #3. Supplemental oxygen as needed to maintain oxygen saturations. As needed nebulizer treatments. Incentive spirometer to bedside. - Time Time Spent with patient: 35 or more minutes Medications reviewed and adjusted accordingly: Yes
--- NOTE | 2018-04-21 19:03 | RADIOLOGY REPORT (SQ) ---
EXAM DESCRIPTION: MRI HEAD WITHOUT COMPLETED DATE/TIME: 04/21/2018 6:27 pm REASON FOR STUDY: AMS, dysphagia, falls. ?CVA COMPARISON: None. TECHNIQUE: Multiplanar imaging includes non-contrasted T1, T2, FLAIR, and diffusion with ADC map seq uences. Images stored on PACS. LIMITATIONS: None. FINDINGS: ANATOMY: No anomalies. Normal vascular flow voids. Pituitary fossa normal. CSF SPACES: Normal in size and contour. No hemorrhage. CEREBRUM: Sulci and gyri normal in size and contour. Normal white matter signal on FLAIR imaging. No evidence of hemorrhage, mass, or extraaxial fluid collection. POSTERIOR FOSSA: No signal alteration. No hemorrhage. No edema, masses or mass effect. Internal judit tory canals, cerebello-pontine angles, mastoids normal. DIFFUSION IMAGING: Negative for acute or sub-acute infarction. ORBITS: No masses. Globes normal. PARANASAL SINUSES: No fluid levels. Mucosa normal. OTHER: No other significant finding. IMPRESSION: NORMAL MRI OF THE BRAIN WITHOUT INTRAVENOUS GADOLINIUM CONTRAST. EVIDENCE OF ACUTE STROKE: NO. TECHNICAL DOCUMENTATION: JOB ID: [id number] [employer]- All Rights Reserved Reading location - IP/workstation name: [email or web address]
--- NOTE | 2018-04-21 19:09 | RADIOLOGY REPORT (SQ) ---
EXAM DESCRIPTION: MRI CERVICAL SPINE WITHOUT COMPLETED DATE/TIME: 04/21/2018 6:27 pm REASON FOR STUDY: AMS, fever, neck pain COMPARISON: C-spine CT 04/18/2018 TECHNIQUE: Sagittal and Axial imaging includes T1, T2, STIR and gradient echo sequences. LIMITATIONS: None. FINDINGS: ALIGNMENT: Normal. VERTEBRAE: Intact. BONE MARROW: Reactive marrow edema is seen involving the C4 through C6 vertebral bodies adjacent to l arge anterior marginal osteophytes better characterized on comparison CT imaging DISCS: Intervertebral disc desiccation and loss of height is seen at all levels. HARDWARE: None in the spine. CORD AND BASE OF BRAIN: Normal in size and signal intensity. SOFT TISSUES: No soft tissue masses. C1-C2: No significant spinal stenosis. C2-C3: No significant spinal stenosis or exit foraminal stenosis. C3-C4: Disc osteophyte complex in the setting of facet arthropathy results in contouring of the spina l cord both anteriorly and posteriorly. No syrinx. Moderate bilateral neural foraminal narrowing. C4-C5: Disc osteophyte complex in the setting of facet arthropathy results in contouring of the spina l cord both anteriorly and posteriorly. No syrinx. Moderate bilateral neural foraminal narrowing. C5-C6: Disc osteophyte complex asymmetric to the left in the setting of facet arthropathy results in contouring of the cord both anteriorly and posteriorly. No syrinx. Mild right and severe left neura l foraminal narrowing. C6-C7: Disc osteophyte complex in the setting of facet arthropathy results in contouring of the cord both anteriorly and posteriorly. No syrinx. Moderate bilateral neural foraminal stenosis. C7-T1: No significant spinal stenosis or exit foraminal stenosis. UPPER THORACIC: Incompletely imaged. No significant spinal stenosis or exit foraminal stenosis. OTHER: No other significant finding. IMPRESSION: Multilevel spondylotic changes demonstrating cord contact at the C3 through C7 levels wi thout syrinx. TECHNICAL DOCUMENTATION: JOB ID: [id number]- All Rights Reserved Reading location - IP/workstation name: [email or web address]
[2018-04-21] MEDS: INSULIN GLARGINE,HUM.REC.ANLOG 300 UNIT/3 ML INSULN.PEN SUBCUT SCH (21:33)
[2018-04-21] MEDS: SIMVASTATIN 40 MG TABLET PO SCH (21:38)
[2018-04-21] MEDS ORDERED: COLLAGENASE CLOSTRIDIUM HIST. OINT 30 GM ONE (21:43)
[2018-04-21] MEDS: COLLAGENASE CLOSTRIDIUM HIST. OINT 30 GM TOP SCH (23:44)
[2018-04-22] MEDS: HYDROMORPHONE HCL INJ/PF 2 MG/ML AMPULE SUBCUT PRN ×2 (03:29→21:41)
[2018-04-22] MEDS: HEPARIN SOD (PORCINE) 5,000 UNIT/ML 1 ML SYRINGE SUBCUT SCH ×3 (05:18→21:36)
[2018-04-22] MEDS: CEFEPIME 1 GM/D5W RTU 1 GM/50 ML RTUPB IV SCH ×2 (05:21→18:50)
[2018-04-22] MEDS: GABAPENTIN 300 MG CAPSULE PO SCH ×3 (05:21→21:30)
[2018-04-22 05:38] LABS: ABSOLUTE LYMPHOCYTES (AUTO) 1.5 10^3/uL (0.5-4.7); ABSOLUTE MONOCYTES (AUTO) 0.5 10^3/uL (0.1-1.4); ABSOLUTE NEUT (AUTO) 4.9 10^3/uL (1.7-8.2); BASOPHILS % (AUTO) 0.2 % (0-2); EOSINOPHILS % (AUTO) 0.3 % (0-6); HEMATOCRIT 34.4 % (37.9-51.0); HEMOGLOBIN 11.7 g/dL (13.5-17.0); LYMPHOCYTES % (AUTO) 21.7 % (13-45); MEAN CORPUSCULAR HEMOGLOBIN 30.2 pg (27.0-33.4); MEAN CORPUSCULAR HGB CONC 34.1 g/dL (32.0-36.0); MEAN CORPUSCULAR VOLUME 89 fl (80-97); MONOCYTES % (AUTO) 6.8 % (3-13); PLATELET COUNT 171 10^3/uL (150-450); RED BLOOD COUNT 3.88 10^6/uL (4.35-5.55); RED CELL DISTRIBUTION WIDTH 13.3 % (11.5-14.0); TOTAL CELLS COUNTED % (AUTO) 100 %; WHITE BLOOD COUNT 6.8 10^3/uL (4.0-10.5)
[2018-04-22 06:21] LABS: ALANINE AMINOTRANSFERASE 31 U/L (21-72); ALBUMIN 2.9 g/dL (3.5-5.0); ALKALINE PHOSPHATASE 89 U/L (38-126); ANION GAP 10 (5-19); ASPARTATE AMINO TRANSFERASE 44 U/L (17-59); BILIRUBIN,DIRECT 0.4 mg/dL (0.0-0.4); BILIRUBIN,TOTAL 0.6 mg/dL (0.2-1.3); BLOOD UREA NITROGEN 16 mg/dL (7-20); CALCIUM 8.5 mg/dL (8.4-10.2); CARBON DIOXIDE 23 mmol/L (22-30); CHLORIDE 111 mmol/L (98-107); CHOLESTEROL 113.46 mg/dL (0-200); GLUCOSE 151 mg/dL (75-110); POTASSIUM 3.5 mmol/L (3.6-5.0); SODIUM 143.7 mmol/L (137-145); TRIGLYCERIDES 157 mg/dL (<150)
[2018-04-22 06:31] LABS: DIRECT LDL 88 mg/dL (<100)
[2018-04-22 06:39] LABS: VLDL CHOLESTEROL 31.4 mg/dL (10-31)
--- NOTE | 2018-04-22 08:37 | PDOC PROGRESS REPORT ---
Subjective Progress Note for:: 04/22/18 Reason For Visit: AMS PSBO R HEEL OSTEO,FECAL IMPACTION CHRONIC PAIN f/u exam of bilat heel decubuti Physical Exam Vital Signs: Temp Pulse Resp BP Pulse Ox 98.2 F 70 20 114/60 100 04/21/18 22:58 04/22/18 07:00 04/22/18 04:00 04/22/18 04:00 04/22/18 04:00 Intake & Output 04/21/18 04/22/18 04/23/18 06:59 06:59 06:59 Intake Total 1734 685 Output Total 550 Balance 1184 685 Weight 90.1 kg GI/Abdominal exam: PRESENT: soft Extremities exam: PRESENT: other - Both heels were examined this morning. The left heel is improving there is some granulation tissue there is no evidence of any necrosis or infection. The right heel there is still an area of central necrotic tissue cysts surrounding that there is normal granulation tissue with good evidence of healing. The area of the necrosis on the right heel is about 2 cm in diameter plan on re-debridement of that area. Results Laboratory Results: 04/22/18 05:20 04/22/18 05:20 04/22/18 04/22/18 05:20 05:20 WBC 6.8 RBC 3.88 L Hgb 11.7 L Hct 34.4 L MCV 89 MCH 30.2 MCHC 34.1 RDW 13.3 Plt Count 171 Seg Neutrophils % 71.0 Lymphocytes % 21.7 Monocytes % 6.8 Eosinophils % 0.3 Basophils % 0.2 Absolute Neutrophils 4.9 Absolute Lymphocytes 1.5 Absolute Monocytes 0.5 Absolute Eosinophils 0.0 Absolute Basophils 0.0 Sodium 143.7 Potassium 3.5 L Chloride 111 H Carbon Dioxide 23 Anion Gap 10 BUN 16 Creatinine 0.65 Est GFR ( Amer) > 60 Est GFR (Non-Af Amer) > 60 Glucose 151 H Calcium 8.5 Total Bilirubin 0.6 AST 44 ALT 31 Alkaline Phosphatase 89 Total Protein 6.0 L Albumin 2.9 L Triglycerides 157 H Cholesterol 113.46 LDL Cholesterol Direct 88 VLDL Cholesterol 31.4 H HDL Cholesterol 18 L 04/18/18 18:35 Blood Blood Culture - Final Group B Beta Streptococcus 04/18/18 04/18/18 04/18/18 17:30 17:30 23:00 Creatine Kinase 164 200 H CK-MB (CK-2) 2.28 Troponin I < 0.012 04/18/18 04/19/18 04/19/18 23:00 05:57 05:57 Creatine Kinase 250 H CK-MB (CK-2) 2.12 1.69 Troponin I < 0.012 < 0.012 04/19/18 04/19/18 11:40 11:40 Creatine Kinase 315 H CK-MB (CK-2) 1.65 Troponin I < 0.012 Impressions: Cervical Spine CT 04/18/18 18:47 IMPRESSION: CHRONIC DEGENERATIVE CHANGES. NO ACUTE FINDINGS. Foot X-Ray 04/18/18 18:47 IMPRESSION: Calcaneal spur. No acute findings. No evidence of osteomyelitis. Head CT 04/18/18 18:47 IMPRESSION: NORMAL BRAIN CT WITHOUT CONTRAST. EVIDENCE OF ACUTE STROKE: NO. Abdomen/Pelvis CT 04/18/18 20:11 IMPRESSION: Mildly dilated fluid-filled loops of small bowel in the left hemiabdomen. Differential possibilities include enteritis versus partial small bowel obstruction. Findings also suggestive of constipation. Chest X-Ray 04/20/18 00:00 IMPRESSION: New heterogeneous opacity of the left lung base, concerning for infection or aspiration. Acute Abdomen Series 04/21/18 00:00 IMPRESSION: Persistent left basilar airspace disease worrisome for pneumonia. Grossly nonobstructive bowel gas pattern. Cervical Spine MRI 04/21/18 00:00 IMPRESSION: Multilevel spondylotic changes demonstrating cord contact at the C3 through C7 levels without syrinx. Head MRI 04/21/18 00:00 IMPRESSION: NORMAL MRI OF THE BRAIN WITHOUT INTRAVENOUS GADOLINIUM CONTRAST. EVIDENCE OF ACUTE STROKE: NO. Modified Barium Swallow 04/21/18 00:00 IMPRESSION: None tail penetration and subglottic aspiration with multiple consistencies. PLEASE SEE SPEECH PATHOLOGIST REPORT FOR OTHER FINDINGS AND RECOMMENDATIONS. Assessment & Plan - Diagnosis (1) Abdominal pain Qualifiers: Abdominal location: generalized Qualified Code(s): R10.84 - Generalized abdominal pain Is this a current diagnosis for this admission?: Yes (2) Bacteremia Is this a current diagnosis for this admission?: Yes (3) Heel ulcer due to secondary DM Is this a current diagnosis for this admission?: Yes (4) Decubitus ulcer of heel, bilateral, stage 2 Is this a current diagnosis for this admission?: Yes - Plan Summary Plan Summary: Patient was admitted for dental pain constipation bilateral heel decubiti his abdominal pain and constipation have been resolving after enemas. The heel decubiti are being treated heel has a stage III decubitus in the left heel has a stage II decubitus views were previously debrided by Dr. Daniels however this morning the area on the right heel that has necrosis will be debrided again. Of note the patient underwent a swallowing study yesterday because of concerns about chronic aspiration. it did show there was some aspiration risk that is being managed by his medical doctor.
--- NOTE | 2018-04-22 08:43 | Operative Report ---
Operative Report DATE OF SURGERY: 04/19/18 PREOPERATIVE DIAGNOSIS: 1. Diabetes mellitus with peripheral neuropathy. 2. Deep stage II bilateral heel ulcers POSTOPERATIVE DIAGNOSIS: Same; no clinical evidence of osteomyelitis of the heels OPERATION: Excisional debridement of skin of bilateral stage II heel ulcers SURGEON: ALFONZO SANCHEZ ANESTHESIA: Other - No anesthesia required secondary to peripheral neuropathy TISSUE REMOVED OR ALTERED: Nonviable skin ESTIMATED BLOOD LOSS: Minimal INTRAOPERATIVE FINDINGS: See below
--- NOTE | 2018-04-22 08:50 | Operative Report ---
Nonrecallable Operative Report DATE OF SURGERY: 04/22/18 PREOPERATIVE DIAGNOSIS: Stage III right-sided heel decubiti POSTOPERATIVE DIAGNOSIS: Same OPERATION: Bedside debridement SURGEON: ANA HARLEY ANESTHESIA: Other - No anesthesia necessary secondary to peripheral neuropathy TISSUE REMOVED OR ALTERED: Necrotic tissue COMPLICATIONS: No complications ESTIMATED BLOOD LOSS: Minimal INTRAOPERATIVE FINDINGS: Necrotic tissue removed
[2018-04-22] MEDS: METHOCARBAMOL 500 MG TABLET PO SCH ×4 (11:40→21:30)
[2018-04-22] MEDS: DOCUSATE SODIUM 100 MG CAPSULE PO SCH (11:40)
[2018-04-22] MEDS: PANTOPRAZOLE SODIUM 40 MG VIAL IV SCH (12:23)
[2018-04-22] MEDS: LIDOCAINE 5% (700 MG) TRANSDERMAL ADH..PATCH TP SCH (12:25)
[2018-04-22] MEDS: ASPIRIN 300 MG SUPP, RECTAL PR SCH (12:32)
[2018-04-22] MEDS ORDERED: LORAZEPAM INJ 2 MG/1 ML VIAL IV PRN (16:32)
--- NOTE | 2018-04-22 18:48 | PDOC PROGRESS REPORT ---
Subjective Progress Note for:: 04/22/18 Subjective:: The patient is a 68-year-old male with a past medical history of diabetes mellitus, GERD, arthritis, opiate dependent chronic pain, and benzodiazepine dependent anxiety who was admitted 04/18/18 after a mechanical fall and found to have acute encephalopathy, fecal impaction, and bilateral diabetic foot ulcers. Mr Thompson was seen after bedside debridement and dressing changes today. He was mostly cooperative. He is AAO to self, day, year, location. He is mostly con cerned with eating. Appears he has been off po food x 3 days. Will discuss the possibility of moving forward with ST recommendations for diet, and make sure everyone understands the risk of aspiration. PAtient agrees to attempt PT today. He denies F/C/CP/SOB. No other acute issues reported. Reason For Visit: AMS PSBO R HEEL OSTEO,FECAL IMPACTION CHRONIC PAIN Physical Exam Vital Signs: Temp Pulse Resp BP Pulse Ox 97.5 F 60 18 129/56 H 100 04/22/18 15:31 04/22/18 15:31 04/22/18 15:31 04/22/18 15:31 04/22/18 15:31 Intake & Output 04/21/18 04/22/18 04/23/18 06:59 06:59 06:59 Intake Total 1734 685 Output Total 550 400 Balance 1184 685 -400 Weight 90.1 kg 80.1 kg Results Laboratory Results: 04/22/18 05:20 04/22/18 05:20 04/22/18 04/22/18 05:20 05:20 WBC 6.8 RBC 3.88 L Hgb 11.7 L Hct 34.4 L MCV 89 MCH 30.2 MCHC 34.1 RDW 13.3 Plt Count 171 Seg Neutrophils % 71.0 Lymphocytes % 21.7 Monocytes % 6.8 Eosinophils % 0.3 Basophils % 0.2 Absolute Neutrophils 4.9 Absolute Lymphocytes 1.5 Absolute Monocytes 0.5 Absolute Eosinophils 0.0 Absolute Basophils 0.0 Sodium 143.7 Potassium 3.5 L Chloride 111 H Carbon Dioxide 23 Anion Gap 10 BUN 16 Creatinine 0.65 Est GFR ( Amer) > 60 Est GFR (Non-Af Amer) > 60 Glucose 151 H Calcium 8.5 Total Bilirubin 0.6 AST 44 ALT 31 Alkaline Phosphatase 89 Total Protein 6.0 L Albumin 2.9 L Triglycerides 157 H Cholesterol 113.46 LDL Cholesterol Direct 88 VLDL Cholesterol 31.4 H HDL Cholesterol 18 L 04/18/18 18:35 Blood Blood Culture - Final Group B Beta Streptococcus 04/18/18 04/18/18 04/18/18 17:30 17:30 23:00 Creatine Kinase 164 200 H CK-MB (CK-2) 2.28 Troponin I < 0.012 04/18/18 04/19/18 04/19/18 23:00 05:57 05:57 Creatine Kinase 250 H CK-MB (CK-2) 2.12 1.69 Troponin I < 0.012 < 0.012 04/19/18 04/19/18 11:40 11:40 Creatine Kinase 315 H CK-MB (CK-2) 1.65 Troponin I < 0.012 Impressions: Cervical Spine CT 04/18/18 18:47 IMPRESSION: CHRONIC DEGENERATIVE CHANGES. NO ACUTE FINDINGS. Foot X-Ray 04/18/18 18:47 IMPRESSION: Calcaneal spur. No acute findings. No evidence of osteomyelitis. Head CT 04/18/18 18:47 IMPRESSION: NORMAL BRAIN CT WITHOUT CONTRAST. EVIDENCE OF ACUTE STROKE: NO. Abdomen/Pelvis CT 04/18/18 20:11 IMPRESSION: Mildly dilated fluid-filled loops of small bowel in the left hemiabdomen. Differential possibilities include enteritis versus partial small bowel obstruction. Findings also suggestive of constipation. Chest X-Ray 04/20/18 00:00 IMPRESSION: New heterogeneous opacity of the left lung base, concerning for infection or aspiration. Acute Abdomen Series 04/21/18 00:00 IMPRESSION: Persistent left basilar airspace disease worrisome for pneumonia. Grossly nonobstructive bowel gas pattern. Cervical Spine MRI 04/21/18 00:00 IMPRESSION: Multilevel spondylotic changes demonstrating cord contact at the C3 through C7 levels without syrinx. Head MRI 04/21/18 00:00 IMPRESSION: NORMAL MRI OF THE BRAIN WITHOUT INTRAVENOUS GADOLINIUM CONTRAST. EVIDENCE OF ACUTE STROKE: NO. Modified Barium Swallow 04/21/18 00:00 IMPRESSION: None tail penetration and subglottic aspiration with multiple consistencies. PLEASE SEE SPEECH PATHOLOGIST REPORT FOR OTHER FINDINGS AND RECOMMENDATIONS. Assessment & Plan - Diagnosis (1) Bacteremia Is this a current diagnosis for this admission?: Yes (2) Diabetes mellitus Qualifiers: Diabetes mellitus type: type 2 Diabetes mellitus complication status: with hyperglycemia Is this a current diagnosis for this admission?: Yes (3) Encephalopathy acute Is this a current diagnosis for this admission?: Yes (4) Left lower lobe pneumonia Qualifiers: Pneumonia type: aspiration pneumonia Is this a current diagnosis for this admission?: Yes (5) Opiate dependence, continuous Is this a current diagnosis for this admission?: Yes (6) Partial small bowel obstruction Is this a current diagnosis for this admission?: Yes (7) Therapeutic opioid induced constipation Is this a current diagnosis for this admission?: Yes - Time Time Spent with patient: 35 or more minutes Smoking Cessation Education: 3 to 10 minutes Medications reviewed and adjusted accordingly: Yes - Inpatient Certification Based on my medical assessment, after consideration of the patient's comorbidities, presenting symptoms, or acuity I expect that the services needed warrant INPATIENT care.: Yes I certify that my determination is in accordance with my understanding of Medicare's requirements for reasonable and necessary INPATIENT services [42 CFR 412.3e].: Yes - Plan Summary Plan Summary: (1) Encephalopathy acute Is this a current diagnosis for this admission?: Yes Plan: -Improved. Seems to have intermittent course, and may be have some level of super imposed delirium. -Likely multifactorial secondary to opiate/benzo missuse, infection (aspiration pneumonia), fecal impaction; now concern for subacute CVA. -Normal head CT and MRI of head. Upgrade to IMCU on continuous cardiac telemetry. Continue low dose Klonopin to prevent withdrawal. Judicious use of opiate/sedating medications. Rehydrate with IV fluids. Antibiotics and cultures as below. -Fall precautions and supportive care. -Jose felt he lacked capacity. -Patient has been advised he no longer manage his own medications as there is a strong likelihood of opiate and benzodiazepine misuse/overuse, as well as, medication noncompliance for management of his diabetes mellitus. (2) Diabetes mellitus Qualifiers: Diabetes mellitus type: type 2 Diabetes mellitus complication status: with hyperglycemia Is this a current diagnosis for this admission?: Yes Plan: A1c 11.8% on admission -metformin is held while admitted. -He was placed on a consistent carb diet with Accu-Cheks before meals and at bedtime. -He was started on Lantus 12 units daily with Humalog for sliding scale coverage. -Hypoglycemia protocols are in place. -registered dietitian and patient educator involved (3) Bacteremia Is this a current diagnosis for this admission?: Yes Plan: Blood cultures 2/4 bottles (04/18/18) grew Group B Beta strep. Repeat blood cultures (04/19/18) have no growth at 24 hours. WBCs remain normal, however the patient is febrile with a TMax 103.1 in the last 48 hours. -CXR 04/21 left lower lobe pneumonia; likely aspiration. - afebriele x 24 hours -continue cefepime. appears iv vanc has been stopped -Urinalysis is negative. -Low suspicion that the source of his infection is related to his bilateral foot ulcerations per surgery (4) Opiate dependence, continuous Is this a current diagnosis for this admission?: Yes Plan: -Secondary to chronic pain. -Resume low dose oxycodone 5 mg q4 hours as needed for pain. -Continue as needed Tylenol and scheduled gabapentin for pain. -Robaxin 500 mg four times daily for muscle spasms. -Lidoderm patches. (5) Chronic pain Is this a current diagnosis for this admission?: Yes Plan: Management as above. 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 The patient has deep stage II pressure ulcerations to bilateral heels; low suspicion for osteomyelitis. -Wound care per surgery's recommendations. (8) Partial small bowel obstruction Is this a current diagnosis for this admission?: Yes Plan: -Resolved. CT of the abdomen demonstrated mildly dilated fluid-filled loops of the small bowel in the left hemiabdomen; differential include enteritis versus partial small bowel obstruction (likely source of the patient's fever, positive cultures, and metabolic encephalopathy) Acute abdominal series (04/21/2018) demonstrates a grossly nonobstructive bowel gas pattern. -Successfully treated with lactulose and fleets enema. -Colace daily. -Monitor for worsening symptoms indicating need for n.p.o. status, NG tube placement, and surgical reconsultation. (9) Dysphagia Qualifiers: Dysphagia type: pharyngeal phase Qualified Code(s): R13.13 - Dysphagia, pharyngeal phase Is this a current diagnosis for this admission?: Yes Plan: -Failed modified barium swallow study across all consistencies. -ST recommends n.p.o. with alternate means for nutrition. -However, ST recognizes the patient's likelihood of not remaining compliant with these recommendations; therefore advise advancing to thin liquid and pured diet. -Strict aspiration precautions. -Patient currently lacks capacity; will discuss with family members the risks and benefits of alternate means of nutrition (NG versus PEG tube); do not anticipate that the patient would tolerate either of these interventions and wo uld likely remove the lines. May have to concede and advanced to a pured diet, however, would like to make the family aware of the explicit risks of doing so and give them an opportunity to advise. - plans to start puree w/thin diet 04/23 if family is in agreeable (10) CVA (cerebral vascular accident) Is this a current diagnosis for this admission?: Yes Plan: -Negative head CT and MRI brain. -Aspirin 300 mg [place] daily. -Atorvastatin 80 mg p.o. daily -PT/OT/ST consultations. -Discharge planning is consulted. (11) Left lower lobe pneumonia Qualifiers: Pneumonia type: aspiration pneumonia Is this a current diagnosis for this admission?: Yes Plan: -Initial blood culture (04/18/2018) 2/4 group B beta strep -Repeat blood culture (04/19/2018) no growth at 48 hours. -continue iv cefepime. day 4 -supplemental o2 + nebulizer treatments as needed. incentive spirometer at bedside.
[2018-04-22] MEDS: NORMAL SALINE 1000 ML 1,000 ML IV PRN (18:50)
[2018-04-22] MEDS: COLLAGENASE CLOSTRIDIUM HIST. OINT 30 GM TOP SCH (18:53)
[2018-04-22] MEDS: SIMVASTATIN 40 MG TABLET PO SCH (21:31)
[2018-04-22] MEDS: INSULIN GLARGINE,HUM.REC.ANLOG 300 UNIT/3 ML INSULN.PEN SUBCUT SCH (21:36)
[2018-04-23] MEDS: HYDROMORPHONE HCL INJ/PF 2 MG/ML AMPULE SUBCUT PRN ×3 (03:51→19:58)
[2018-04-23] MEDS: GABAPENTIN 300 MG CAPSULE PO SCH (05:20)
[2018-04-23] MEDS: CEFEPIME 1 GM/D5W RTU 1 GM/50 ML RTUPB IV SCH ×2 (05:26→17:32)
[2018-04-23] MEDS: HEPARIN SOD (PORCINE) 5,000 UNIT/ML 1 ML SYRINGE SUBCUT SCH ×3 (05:27→22:06)
[2018-04-23] MEDS: LIDOCAINE 5% (700 MG) TRANSDERMAL ADH..PATCH TP SCH (10:50)
[2018-04-23] MEDS: PANTOPRAZOLE SODIUM 40 MG VIAL IV SCH (10:50)
[2018-04-23] MEDS: METHOCARBAMOL 500 MG TABLET PO SCH ×4 (11:09→21:55)
[2018-04-23] MEDS: DOCUSATE SODIUM 100 MG CAPSULE PO SCH (11:09)
[2018-04-23] MEDS: ASPIRIN 300 MG SUPP, RECTAL PR SCH (12:43)
--- NOTE | 2018-04-23 16:15 | PDOC PROGRESS REPORT ---
Subjective Progress Note for:: 04/23/18 Subjective:: The patient is a 68-year-old male with a past medical history of diabetes mellitus, GERD, arthritis, opiate dependent chronic pain, and benzodiazepine dependent anxiety who was admitted 04/18/18 after a mechanical fall and found to have acute encephalopathy, fecal impaction, and bilateral diabetic foot ulcers. Mr Thompson was seen sitting in the recliner today. He is AAO to self, place, date, month, year. He was re-evaluated by ST again today, and again was not cleared for a diet. Patient is very frustrated by this, and desires to eat. Options discussed with nursing, and need to be discussed with family. Patient denies systemic signs of infections. Overall seems to be improving. He is somewhat cooperative with staff. Periods of agitation are less frequent and less severe Reason For Visit: AMS PSBO R HEEL OSTEO,FECAL IMPACTION CHRONIC PAIN Physical Exam Vital Signs: Temp Pulse Resp BP Pulse Ox 97.9 F 63 18 138/65 H 100 04/23/18 07:25 04/23/18 07:25 04/23/18 07:25 04/23/18 07:25 04/23/18 07:25 Intake & Output 04/22/18 04/23/18 04/24/18 06:59 06:59 06:59 Intake Total 1685 50 250 Output Total 400 Balance 1685 -350 250 Weight 90.1 kg 80.1 kg General appearance: PRESENT: no acute distress Head exam: PRESENT: atraumatic, normocephalic Ear exam: PRESENT: normal external ear exam Mouth exam: PRESENT: moist, neck supple Teeth exam: PRESENT: poor dentation Respiratory exam: PRESENT: other - good air flow. some areas of coarseness. no wheeze. minimal rhonchi Cardiovascular exam: PRESENT: RRR, +S1, +S2 GI/Abdominal exam: PRESENT: normal bowel sounds, soft. ABSENT: distended, guarding, mass, organolmegaly, rebound, tenderness Rectal exam: PRESENT: deferred Musculoskeletal exam: PRESENT: normal inspection Neurological exam: PRESENT: alert, altered, awake, oriented to person, oriented to place, oriented to situation, CN II-XII grossly intact Psychiatric exam: PRESENT: anxious, unusual affect Results Laboratory Results: 04/22/18 05:20 04/22/18 05:20 04/23/18 11:47 Magnesium 2.2 04/18/18 04/18/18 04/18/18 17:30 17:30 23:00 Creatine Kinase 164 200 H CK-MB (CK-2) 2.28 Troponin I < 0.012 04/18/18 04/19/18 04/19/18 23:00 05:57 05:57 Creatine Kinase 250 H CK-MB (CK-2) 2.12 1.69 Troponin I < 0.012 < 0.012 04/19/18 04/19/18 11:40 11:40 Creatine Kinase 315 H CK-MB (CK-2) 1.65 Troponin I < 0.012 Impressions: Cervical Spine CT 04/18/18 18:47 IMPRESSION: CHRONIC DEGENERATIVE CHANGES. NO ACUTE FINDINGS. Foot X-Ray 04/18/18 18:47 IMPRESSION: Calcaneal spur. No acute findings. No evidence of osteomyelitis. Head CT 04/18/18 18:47 IMPRESSION: NORMAL BRAIN CT WITHOUT CONTRAST. EVIDENCE OF ACUTE STROKE: NO. Abdomen/Pelvis CT 04/18/18 20:11 IMPRESSION: Mildly dilated fluid-filled loops of small bowel in the left hemiabdomen. Differential possibilities include enteritis versus partial small bowel obstruction. Findings also suggestive of constipation. Chest X-Ray 04/20/18 00:00 IMPRESSION: New heterogeneous opacity of the left lung base, concerning for infection or aspiration. Acute Abdomen Series 04/21/18 00:00 IMPRESSION: Persistent left basilar airspace disease worrisome for pneumonia. Grossly nonobstructive bowel gas pattern. Cervical Spine MRI 04/21/18 00:00 IMPRESSION: Multilevel spondylotic changes demonstrating cord contact at the C3 through C7 levels without syrinx. Head MRI 04/21/18 00:00 IMPRESSION: NORMAL MRI OF THE BRAIN WITHOUT INTRAVENOUS GADOLINIUM CONTRAST. EVIDENCE OF ACUTE STROKE: NO. Modified Barium Swallow 04/21/18 00:00 IMPRESSION: None tail penetration and subglottic aspiration with multiple consistencies. PLEASE SEE SPEECH PATHOLOGIST REPORT FOR OTHER FINDINGS AND RECOMMENDATIONS. Assessment & Plan - Diagnosis (1) Bacteremia Is this a current diagnosis for this admission?: Yes (2) Diabetes mellitus Qualifiers: Diabetes mellitus type: type 2 Diabetes mellitus complication status: with hyperglycemia Is this a current diagnosis for this admission?: Yes (3) Encephalopathy acute Is this a current diagnosis for this admission?: Yes (4) Left lower lobe pneumonia Qualifiers: Pneumonia type: aspiration pneumonia Is this a current diagnosis for this admission?: Yes (5) Opiate dependence, continuous Is this a current diagnosis for this admission?: Yes (6) Partial small bowel obstruction Is this a current diagnosis for this admission?: Yes (7) Therapeutic opioid induced constipation Is this a current diagnosis for this admission?: Yes - Time Time Spent with patient: 25-34 minutes Medications reviewed and adjusted accordingly: Yes - Inpatient Certification Based on my medical assessment, after consideration of the patient's co morbidities, presenting symptoms, or acuity I expect that the services needed warrant INPATIENT care.: Yes I certify that my determination is in accordance with my understanding of Medicare's requirements for reasonable and necessary INPATIENT services [42 CFR 412.3e].: Yes - Plan Summary Plan Summary: (1) Encephalopathy acute Is this a current diagnosis for this admission?: Yes Plan: -Improved. Seems to have intermittent course, and may have some level of deliriu m super imposed -Likely multifactorial secondary to opiate/benzo missuse, infection (aspiration pneumonia), fecal impaction; -Normal head CT and MRI of head. -Upgrade to IMCU on continuous cardiac telemetry. -Continue low dose Klonopin to prevent withdrawal. -Judicious use of opiate/sedating medications. -Rehydrate with IV fluids. -Antibiotics and cultures as below. -Fall precautions and supportive care. -Jose felt he lacked capacity early in admisison, and may need to be reconsulted given the food/meal situation -Patient has been advised he no longer manage his own medications as there is a strong likelihood of opiate and benzodiazepine misuse/overuse, as well as, medication noncompliance for management of his diabetes mellitus. (2) Diabetes mellitus Qualifiers: Diabetes mellitus type: type 2 Diabetes mellitus complication status: with hyperglycemia Is this a current diagnosis for this admission?: Yes Plan: A1c 11.8% on admission -metformin is held while admitted -He was placed on a consistent carb diet with Accu-Cheks achs prior to failing swallow exams. -He was started on Lantus 12 units daily with Humalog for sliding scale coverage. -Hypoglycemia protocols are in place. -registered dietitian and patient educator involved (3) Bacteremia Is this a current diagnosis for this admission?: Yes Plan: -Blood cultures 2/4 bottles (04/18/18) grew Group B Beta strep. -Repeat blood cultures (04/19/18) have no growth -TMax 103.1 in the last 96 hours. afebriele x 48 hours -CXR 04/21 left lower lobe pneumonia; likely aspiration. -continue cefepime. appears iv vanc was stopped after only a couple days even though suspcision was aspiration in origin. either way patient is improving. -Urinalysis is negative. -Low suspicion that the source of his infection is related to his bilateral foot ulcerations per surgery (4) Opiate dependence, continuous Is this a current diagnosis for this admission?: Yes Plan: -Secondary to chronic pain. -Resume low dose oxycodone 5 mg q4 hours as needed for pain. -Continue as needed Tylenol and scheduled gabapentin for pain. -Robaxin 500 mg four times daily for muscle spasms. -Lidoderm patches. (5) Chronic pain Is this a current diagnosis for this admission?: Yes Plan: Management as above. 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 The patient has deep stage II pressure ulcerations to bilateral heels; low suspicion for osteom yelitis. -Wound care per surgery's recommendations. (8) Partial small bowel obstruction Is this a current diagnosis for this admission?: Yes Plan: -Resolved. -CT of the abdomen demonstrated mildly dilated fluid-filled loops of the small bowel in the left hemiabdomen; differential include enteritis versus partial small bowel obstruction (likely source of the patient's fever, positive cultures, and metabolic encephalopathy) -Acute abdominal series (04/21/2018) demonstrates a grossly nonobstructive bowel gas pattern. -Successfully treated with lactulose and fleets enema, and colace daily -Monitor for worsening symptoms indicating need for n.p.o. status, NGT placement, and surgical reconsultation. (9) Dysphagia Qualifiers: Dysphagia type: pharyngeal phase Qualified Code(s): R13.13 - Dysphagia, pharyngeal phase Is this a current diagnosis for this admission?: Yes Plan: -Failed modified barium swallow study across all consistencies, and continues to not be cleared by Speech. IF this trend continues then we will have to consider NGT vs PEG. this will need to be discussed with family, and we may ask psych to re-evaluate capacity to ensure the decision needs to be made by family and not the patient. -Patient currently lacks capacity; will discuss with family members the risks and benefits of alternate means of nutrition (NG versus PEG tube); do not anticipate that the patient would tolerate either of these interventions and would likely remove the lines. May have to concede and advanced to a pured diet, however, would like to make the family aware of the explicit risks of doing so and give them an opportunity to advise. -ST recommends n.p.o. with alternate means for nutrition. -However, ST recognizes the patient's likelihood of not remaining compliant with these recommendations; therefore advise advancing to thin liquid and pured diet if we did go that route -Strict aspiration precautions. (10) CVA (cerebral vascular accident) Is this a current diagnosis for this admission?: Yes Plan: -Negative head CT and MRI brain. -Aspirin 300 mg [place] daily. -Atorvastatin 80 mg p.o. daily -PT/OT/ST consultations. -Discharge planning is consulted. (11) Left lower lobe pneumonia Qualifiers: Pneumonia type: aspiration pneumonia Is this a current diagnosis for this admission?: Yes Plan: -improving -Initial blood culture (04/18/2018) 2/4 group B beta strep -Repeat blood culture (04/19/2018) no growth at 48 hours. -continue iv cefepime. day 5 -supplemental o2 as needed + nebulizer treatments as needed. olesya meza at bedside. disposition: will need rolling walker on d/c. will also need some type of assistance with ADL.
[2018-04-23] MEDS: COLLAGENASE CLOSTRIDIUM HIST. OINT 30 GM TOP SCH (17:33)
--- NOTE | 2018-04-23 18:07 | PDOC PROGRESS REPORT ---
Subjective Reason For Visit: AMS PSBO R HEEL OSTEO,FECAL IMPACTION CHRONIC PAIN Physical Exam Vital Signs: Temp Pulse Resp BP Pulse Ox 97.6 F 56 L 18 130/63 H 100 04/23/18 15:24 04/23/18 15:24 04/23/18 15:24 04/23/18 15:24 04/23/18 15:24 Intake & Output 04/22/18 04/23/18 04/24/18 06:59 06:59 06:59 Intake Total 1685 50 250 Output Total 400 Balance 1685 -350 250 Weight 90.1 kg 80.1 kg Results Laboratory Results: 04/22/18 05:20 04/22/18 05:20 04/23/18 11:47 Magnesium 2.2 04/18/18 04/18/18 04/18/18 17:30 17:30 23:00 Creatine Kinase 164 200 H CK-MB (CK-2) 2.28 Troponin I < 0.012 04/18/18 04/19/18 04/19/18 23:00 05:57 05:57 Creatine Kinase 250 H CK-MB (CK-2) 2.12 1.69 Troponin I < 0.012 < 0.012 04/19/18 04/19/18 11:40 11:40 Creatine Kinase 315 H CK-MB (CK-2) 1.65 Troponin I < 0.012 Impressions: Cervical Spine CT 04/18/18 18:47 IMPRESSION: CHRONIC DEGENERATIVE CHANGES. NO ACUTE FINDINGS. Foot X-Ray 04/18/18 18:47 IMPRESSION: Calcaneal spur. No acute findings. No evidence of osteomyelitis. Head CT 04/18/18 18:47 IMPRESSION: NORMAL BRAIN CT WITHOUT CONTRAST. EVIDENCE OF ACUTE STROKE: NO. Abdomen/Pelvis CT 04/18/18 20:11 IMPRESSION: Mildly dilated fluid-filled loops of small bowel in the left hemiabdomen. Differential possibilities include enteritis versus partial small bowel obstruction. Findings also suggestive of constipation. Chest X-Ray 04/20/18 00:00 IMPRESSION: New heterogeneous opacity of the left lung base, concerning for infection or aspiration. Acute Abdomen Series 04/21/18 00:00 IMPRESSION: Persistent left basilar airspace disease worrisome for pneumonia. Grossly nonobstructive bowel gas pattern. Cervical Spine MRI 04/21/18 00:00 IMPRESSION: Multilevel spondylotic changes demonstrating cord contact at the C3 through C7 levels without syrinx. Head MRI 04/21/18 00:00 IMPRESSION: NORMAL MRI OF THE BRAIN WITHOUT INTRAVENOUS GADOLINIUM CONTRAST. EVIDENCE OF ACUTE STROKE: NO. Modified Barium Swallow 04/21/18 00:00 IMPRESSION: None tail penetration and subglottic aspiration with multiple consistencies. PLEASE SEE SPEECH PATHOLOGIST REPORT FOR OTHER FINDINGS AND RECOMMENDATIONS. Assessment & Plan - Diagnosis (1) Decubitus ulcer of heel, bilateral, stage 2 Is this a current diagnosis for this admission?: Yes (2) Therapeutic opioid induced constipation Is this a current diagnosis for this admission?: Yes (3) Abdominal pain Qualifiers: Abdominal location: generalized Qualified Code(s): R10.84 - Generalized abdominal pain Is this a current diagnosis for this admission?: Yes - Plan Summary Plan Summary: This is a 68-year-old male status post debridement of bilateral heel ulcers. His heel ulcers are clean without necrosis. The patient's abdominal pain has completely resolved. He is having bowel movements. Recommend follow-up with wound care clinic after discharge. I will see the patient again on an as-needed basis. Please renotify with any questions or concerns.
[2018-04-23] MEDS: NORMAL SALINE 1000 ML 1,000 ML IV PRN (22:00)
[2018-04-23] MEDS: SIMVASTATIN 40 MG TABLET PO SCH (22:01)
[2018-04-23] MEDS: INSULIN GLARGINE,HUM.REC.ANLOG 300 UNIT/3 ML INSULN.PEN SUBCUT SCH (22:49)
[2018-04-24] MEDS ORDERED: MORPHINE SULFATE 10 MG/ML INJ IV PRN (02:41)
[2018-04-24 05:07] LABS: ABSOLUTE LYMPHOCYTES (AUTO) 1.6 10^3/uL (0.5-4.7); ABSOLUTE MONOCYTES (AUTO) 0.4 10^3/uL (0.1-1.4); ABSOLUTE NEUT (AUTO) 3.8 10^3/uL (1.7-8.2); BASOPHILS % (AUTO) 0.4 % (0-2); EOSINOPHILS % (AUTO) 0.6 % (0-6); HEMATOCRIT 36.6 % (37.9-51.0); HEMOGLOBIN 12.3 g/dL (13.5-17.0); LYMPHOCYTES % (AUTO) 27.4 % (13-45); MEAN CORPUSCULAR HEMOGLOBIN 29.1 pg (27.0-33.4); MEAN CORPUSCULAR HGB CONC 33.7 g/dL (32.0-36.0); MEAN CORPUSCULAR VOLUME 87 fl (80-97); MONOCYTES % (AUTO) 6.7 % (3-13); PLATELET COUNT 169 10^3/uL (150-450); RED BLOOD COUNT 4.23 10^6/uL (4.35-5.55); RED CELL DISTRIBUTION WIDTH 13.6 % (11.5-14.0); SEGMENTED NEUTROPHILS % (AUTO) 64.9 % (42-78); TOTAL CELLS COUNTED % (AUTO) 100 %; WHITE BLOOD COUNT 5.8 10^3/uL (4.0-10.5)
[2018-04-24 05:31] LABS: ALANINE AMINOTRANSFERASE 27 U/L (21-72); ALKALINE PHOSPHATASE 76 U/L (38-126); ANION GAP 14 (5-19); ASPARTATE AMINO TRANSFERASE 30 U/L (17-59); BILIRUBIN,DIRECT 0.4 mg/dL (0.0-0.4); BILIRUBIN,TOTAL 0.6 mg/dL (0.2-1.3); BLOOD UREA NITROGEN 13 mg/dL (7-20); CALCIUM 8.4 mg/dL (8.4-10.2); CARBON DIOXIDE 19 mmol/L (22-30); CHLORIDE 109 mmol/L (98-107); GLUCOSE 87 mg/dL (75-110); POTASSIUM 3.3 mmol/L (3.6-5.0); SODIUM 141.6 mmol/L (137-145); TOTAL PROTEIN 6.1 g/dL (6.3-8.2)
[2018-04-24] MEDS: NORMAL SALINE 1000 ML 1,000 ML IV PRN (06:52)
[2018-04-24] MEDS: CEFEPIME 1 GM/D5W RTU 1 GM/50 ML RTUPB IV SCH ×2 (06:54→18:00)
[2018-04-24] MEDS: HEPARIN SOD (PORCINE) 5,000 UNIT/ML 1 ML SYRINGE SUBCUT SCH ×3 (06:57→22:43)
[2018-04-24] MEDS: MORPHINE SULFATE 10 MG/ML INJ IV PRN ×4 (08:21→20:19)
[2018-04-24] MEDS: PANTOPRAZOLE SODIUM 40 MG VIAL IV SCH (09:32)
[2018-04-24] MEDS: ASPIRIN 300 MG SUPP, RECTAL PR SCH (11:17)
[2018-04-24] MEDS: METHOCARBAMOL 500 MG TABLET PO SCH ×4 (11:18→22:45)
[2018-04-24] MEDS: DOCUSATE SODIUM 100 MG CAPSULE PO SCH (11:18)
[2018-04-24] MEDS: LIDOCAINE 5% (700 MG) TRANSDERMAL ADH..PATCH TP SCH (11:18)
[2018-04-24] MEDS ORDERED: POTASSIUM CHLORIDE 10 MEQ CAPSULE.ER PO ONE (16:41)
--- NOTE | 2018-04-24 16:56 | PDOC PROGRESS REPORT ---
Subjective Progress Note for:: 04/24/18 Subjective:: The patient is a 68-year-old male with a past medical history of diabetes mellitus, GERD, arthritis, opiate dependent chronic pain, and benzodiazepine dependent anxiety who was admitted 04/18/18 after a mechanical fall and found to have acute encephalopathy, fecal impaction, and bilateral diabetic foot ulcers. Mr Thompson was quite agitated this morning. Likely the reason for the elevated blood pressure. He was fairly adamant that he wanted to leave AMA this morning. He was seen with the nursing staff, and family. after a lengthy conversation he agreed to stay. After reevaluation by speech therapy they cleared him for a p.o. diet. He was pleased with these results. He continues to be more lucid. He is alert to himself, place, situation, date, year, month. He denies signs of systemic infection like fever/chills. He did have some trouble sleeping last night, and reports that this has been a frequent problem in the hospital. Nursing reports he may have a own component to sleep dysregulation. Reason For Visit: Altered mental status, bacteremia, Physical Exam Vital Signs: Temp Pulse Resp BP Pulse Ox 99.2 F 66 16 138/57 H 100 04/24/18 11:52 04/24/18 11:52 04/24/18 11:52 04/24/18 11:52 04/24/18 11:52 Intake & Output 04/23/18 04/24/18 04/25/18 06:59 06:59 06:59 Intake Total 1050 1300 50 Output Total 400 Balance 650 1300 50 Weight 80.1 kg General appearance: PRESENT: no acute distress, obese, other - Mostly uncooperative Head exam: PRESENT: atraumatic, normocephalic Eye exam: PRESENT: conjunctiva pink, EOMI, PERRLA. ABSENT: scleral icterus Ear exam: PRESENT: normal external ear exam Mouth exam: PRESENT: moist, neck supple, tongue midline Respiratory exam: PRESENT: other - Good airflow bilaterally. No wheeze. No crackles or rhonchi appreciated. Cardiovascular exam: PRESENT: RRR, +S1, +S2 Pulses: PRESENT: normal dorsalis pedis pul Vascular exam: PRESENT: normal capillary refill GI/Abdominal exam: PRESENT: normal bowel sounds, soft. ABSENT: distended, guarding, mass, organolmegaly, rebound, tenderness Rectal exam: PRESENT: deferred Extremities exam: PRESENT: other - 1+ edema bilateral lower extremities. Bilateral lower extremities bandaged. No sensation bilateral lower extremities from just below the knee. Musculoskeletal exam: PRESENT: full ROM Neurological exam: PRESENT: alert, awake, oriented to person, oriented to place, oriented to time, oriented to situation, CN II-XII grossly intact. ABSENT: motor sensory deficit Psychiatric exam: PRESENT: agitated Results Laboratory Results: 04/24/18 04:49 04/24/18 04:49 04/24/18 04/24/18 04:49 04:49 WBC 5.8 RBC 4.23 L Hgb 12.3 L Hct 36.6 L MCV 87 MCH 29.1 MCHC 33.7 RDW 13.6 Plt Count 169 Seg Neutrophils % 64.9 Lymphocytes % 27.4 Monocytes % 6.7 Eosinophils % 0.6 Basophils % 0.4 Absolute Neutrophils 3.8 Absolute Lymphocytes 1.6 Absolute Monocytes 0.4 Absolute Eosinophils 0.0 Absolute Basophils 0.0 Sodium 141.6 Potassium 3.3 L Chloride 109 H Carbon Dioxide 19 L Anion Gap 14 BUN 13 Creatinine 0.54 Est GFR ( Amer) > 60 Est GFR (Non-Af Amer) > 60 Glucose 87 Calcium 8.4 Magnesium 2.1 Total Bilirubin 0.6 AST 30 ALT 27 Alkaline Phosphatase 76 Total Protein 6.1 L Albumin 3.0 L 04/19/18 12:10 Blood Blood Culture - Final NO GROWTH IN 5 DAYS 04/19/18 11:40 Blood Blood Culture - Final NO GROWTH IN 5 DAYS 04/18/18 22:15 Blood Blood Culture - Final NO GROWTH IN 5 DAYS 04/18/18 04/18/18 04/18/18 17:30 17:30 23:00 Creatine Kinase 164 200 H CK-MB (CK-2) 2.28 Troponin I < 0.012 04/18/18 04/19/18 04/19/18 23:00 05:57 05:57 Creatine Kinase 250 H CK-MB (CK-2) 2.12 1.69 Troponin I < 0.012 < 0.012 04/19/18 04/19/18 11:40 11:40 Creatine Kinase 315 H CK-MB (CK-2) 1.65 Troponin I < 0.012 Impressions: Cervical Spine CT 04/18/18 18:47 IMPRESSION: CHRONIC DEGENERATIVE CHANGES. NO ACUTE FINDINGS. Foot X-Ray 04/18/18 18:47 IMPRESSION: Calcaneal spur. No acute findings. No evidence of osteomyelitis. Head CT 04/18/18 18:47 IMPRESSION: NORMAL BRAIN CT WITHOUT CONTRAST. EVIDENCE OF ACUTE STROKE: NO. Abdomen/Pelvis CT 04/18/18 20:11 IMPRESSION: Mildly dilated fluid-filled loops of small bowel in the left hemiabdomen. Differential possibilities include enteritis versus partial small bowel obstruction. Findings also suggestive of constipation. Chest X-Ray 04/20/18 00:00 IMPRESSION: New heterogeneous opacity of the left lung base, concerning for infection or aspiration. Acute Abdomen Series 04/21/18 00:00 IMPRESSION: Persistent left basilar airspace disease worrisome for pneumonia. Grossly nonobstructive bowel gas pattern. Cervical Spine MRI 04/21/18 00:00 IMPRESSION: Multilevel spondylotic changes demonstrating cord contact at the C3 through C7 levels without syrinx. Head MRI 04/21/18 00:00 IMPRESSION: NORMAL MRI OF THE BRAIN WITHOUT INTRAVENOUS GADOLINIUM CONTRAST. EVIDENCE OF ACUTE STROKE: NO. Modified Barium Swallow 04/21/18 00:00 IMPRESSION: None tail penetration and subglottic aspiration with multiple consistencies. PLEASE SEE SPEECH PATHOLOGIST REPORT FOR OTHER FINDINGS AND RECOMMENDATIONS. Assessment & Plan - Diagnosis (1) Bacteremia Is this a current diagnosis for this admission?: Yes (2) Diabetes mellitus Qualifiers: Diabetes mellitus type: type 2 Diabetes mellitus complication status: with hyperglycemia Is this a current diagnosis for this admission?: Yes (3) Encephalopathy acute Is this a current diagnosis for this admission?: Yes (4) Left lower lobe pneumonia Qualifiers: Pneumonia type: aspiration pneumonia Is this a current diagnosis for this admission?: Yes (5) Opiate dependence, continuous Is this a current diagnosis for this admission?: Yes (6) Partial small bowel obstruction Is this a current diagnosis for this admission?: Yes (7) Therapeutic opioid induced constipation Is this a current diagnosis for this admission?: Yes - Time Time Spent with patient: 35 or more minutes Medications reviewed and adjusted accordingly: Yes - Inpatient Certification Based on my medical assessment, after consideration of the patient's comorbidities, presenting symptoms, or acuity I expect that the services needed warrant INPATIENT care.: Yes I certify that my determination is in accordance with my understanding of Medicare's requirements for reasonable and necessary INPATIENT services [42 CFR 412.3e].: Yes - Plan Summary Plan Summary: (1) Encephalopathy acute Is this a current diagnosis for this admission?: Yes Plan: -Improved. Seems to have intermittent course, and may have some level of de lirium super imposed -Likely multifactorial secondary to opiate/benzo missuse, infection (aspiration pneumonia), fecal impaction; -Normal head CT and MRI of head. -Judicious use of opiate/sedating medications. -Fall precautions and supportive care. -Psych felt he lacked capacity early in admisison, and may need to be reconsulted for reevaluation. -Patient has been advised he no longer manage his own medications as there is a strong likelihood of opiate and benzodiazepine misuse/overuse, as well as, medication noncompliance for management of his diabetes mellitus. (2) Diabetes mellitus Qualifiers: Diabetes mellitus type: type 2 Diabetes mellitus complication status: with hyperglycemia Is this a current diagnosis for this admission?: Yes Plan: A1c 11.8% on admission -metformin is held while admitted -Continue with 12 units Lantus nightly and sliding scale achs. -Blood glucose has been in the 80-150 range. -Hypoglycemia protocols are in place. -registered dietitian and patient educator involved (3) Bacteremia Is this a current diagnosis for this admission?: Yes Plan: -Blood cultures 2/4 bottles (04/18/18) grew Group B Beta strep. -Repeat blood cultures (04/19/18) have no growth -TMax 103.1. afebriele x 72 hours -CXR 04/21 left lower lobe pneumonia; likely aspiration. -continue cefepime. appears iv vanc was stopped after only a couple days even though suspcision was aspiration in origin. either way patient is improving. -Urinalysis is negative. -Low suspicion that the source of his infection is related to his bilateral foot ulcerations per surgery (4) Opiate dependence, continuous Is this a current diagnosis for this admission?: Yes Plan: -Secondary to chronic pain. -Resume low dose oxycodone 5 mg q4 hours as needed for pain. -Continue as needed Tylenol and scheduled gabapentin for pain. -Robaxin 500 mg four times daily for muscle spasms. -Lidoderm patches. (5) Chronic pain Is this a current diagnosis for this admission?: Yes Plan: Management as above. (6) Anxiety Is this a current diagnosis for this admission?: Yes Plan: -po klonopin changed to iv ativan since patient i while patient was n.p.o. -Trazodone 50 mg nightly to help with sleep. 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 -Wound care per surgery's recommendations. (8) Partial small bowel obstruction Is this a current diagnosis for this admission?: Yes Plan: -Resolved. -CT of the abdomen demonstrated mildly dilated fluid-filled loops of the small bowel in the left hemiabdomen; differential include enteritis versus partial small bowel obstruction (likely source of the patient's fever, positive cultures, and metabolic encephalopathy) -Acute abdominal series (04/21/2018) demonstrates a grossly nonobstructive bowel gas pattern. -Successfully treated with lactulose and fleets enema, and colace daily -Monitor for worsening symptoms indicating need for n.p.o. status, NGT placement, and surgical reconsultation. (9) Dysphagia Qualifiers: Dysphagia type: pharyngeal phase Qualified Code(s): R13.13 - Dysphagia, pharyngeal phase Is this a current diagnosis for this admission?: Yes Plan: -After numerous failed swallow evaluations, patient has finally been cleared by speech therapy for a po diet. -Mechanical soft ground meats and honey thickened liquids per speech therapy recommendations. -Repeat modified barium swallow saturday -Strict aspiration precautions. (10) CVA (cerebral vascular accident) Is this a current diagnosis for this admission?: Yes Plan: -Negative head CT and MRI brain. -Aspirin 300 mg MO daily. -Atorvastatin 80 mg p.o. daily -PT/OT/ST consultations. -Discharge planning is consulted. (11) Left lower lobe pneumonia Qualifiers: Pneumonia type: aspiration pneumonia Is this a current diagnosis for this admission?: Yes Plan: -improving -Initial blood culture (04/18/2018) 2/4 group B beta strep -Repeat blood culture (04/19/2018) no growth at 48 hours. -continue iv cefepime. day 6 -supplemental o2 as needed + nebulizer treatments as needed. incentive spirometer at bedside. disposition: will need rolling walker on d/c. will also need some type of assistance with ADL.
[2018-04-24] MEDS: COLLAGENASE CLOSTRIDIUM HIST. OINT 30 GM TOP SCH (18:03)
[2018-04-24] MEDS: CHLORPROMAZINE HCL INJ 25 MG/1 ML AMPULE IV SCH (22:43)
[2018-04-24] MEDS: SIMVASTATIN 40 MG TABLET PO SCH (22:44)
[2018-04-24] MEDS: TRAZODONE HCL 50 MG TABLET PO SCH (22:44)
[2018-04-24] MEDS: INSULIN GLARGINE,HUM.REC.ANLOG 300 UNIT/3 ML INSULN.PEN SUBCUT SCH ×2 (22:45→23:05)
[2018-04-25] MEDS: MORPHINE SULFATE 10 MG/ML INJ IV PRN ×7 (00:06→21:57)
[2018-04-25] MEDS: CEFEPIME 1 GM/D5W RTU 1 GM/50 ML RTUPB IV SCH ×2 (05:44→17:31)
[2018-04-25] MEDS: HEPARIN SOD (PORCINE) 5,000 UNIT/ML 1 ML SYRINGE SUBCUT SCH ×3 (05:46→21:57)
[2018-04-25 06:25] LABS: HEMATOCRIT 35.6 % (37.9-51.0); MEAN CORPUSCULAR HEMOGLOBIN 29.4 pg (27.0-33.4); MEAN CORPUSCULAR HGB CONC 33.8 g/dL (32.0-36.0); MEAN CORPUSCULAR VOLUME 87 fl (80-97); PLATELET COUNT 176 10^3/uL (150-450); RED CELL DISTRIBUTION WIDTH 13.1 % (11.5-14.0); WHITE BLOOD COUNT 5.2 10^3/uL (4.0-10.5)
[2018-04-25 07:02] LABS: ANION GAP 13 (5-19); BLOOD UREA NITROGEN 10 mg/dL (7-20); CALCIUM 8.6 mg/dL (8.4-10.2); CARBON DIOXIDE 20 mmol/L (22-30); CHLORIDE 111 mmol/L (98-107); GLUCOSE 135 mg/dL (75-110); POTASSIUM 3.6 mmol/L (3.6-5.0); SODIUM 143.9 mmol/L (137-145)
[2018-04-25] MEDS: DOCUSATE SODIUM 100 MG CAPSULE PO SCH (09:06)
[2018-04-25] MEDS: ASPIRIN 300 MG SUPP, RECTAL PR SCH (09:06)
[2018-04-25] MEDS: LIDOCAINE 5% (700 MG) TRANSDERMAL ADH..PATCH TP SCH (09:06)
[2018-04-25] MEDS: METHOCARBAMOL 500 MG TABLET PO SCH ×4 (09:11→21:56)
--- NOTE | 2018-04-25 11:38 | RADIOLOGY REPORT (SQ) ---
EXAM DESCRIPTION: COOKIE SWALLOW COMPLETED DATE/TIME: 04/25/2018 10:21 am REASON FOR STUDY: aspiration HEAD INJURY COMPARISON: Modified barium swallow 04/21/2018 TECHNIQUE: Videofluoroscopic swallowing examination was performed in conjunction with speech patholo gy. Videofluoroscopic imaging was obtained and reviewed and these are the findings: RADIATION DOSE: 3 minutes 20 seconds of fluoroscopy was used. 2 images saved to PACS. LIMITATIONS: None FINDINGS: The patient was brought into the fluoro room and placed upright on a modified barium swall ow chair. The patient was then given multiple consistencies mixed with barium to swallow under live fluoroscopic video guidance. According to the Speech Pathologist there was laryngeal penetration wit h thin and nectar thick liquids. Trace aspiration of thin liquids while attempting to swallow cookie consistency. Again seen, cookie consistency lodged within the vallecular and required multiple swal lows of thin liquids to clear. IMPRESSION: LARYNGEAL PENETRATION AND TRACE ASPIRATION DESCRIBED ABOVE.PLEASE SEE SPEECH PATHOLOG IST REPORT FOR OTHER FINDINGS AND RECOMMENDATIONS. COMMENT: Quality ID [id number]: Final reports for procedures using fluoroscopy that document radiation exp osure indices, or exposure time and number of fluorographic images (if radiation exposure indices are not available) TECHNICAL DOCUMENTATION: JOB ID: [id number] [email or web address]- All Rights Reserved Reading location - IP/workstation name: [email or web address] [id number]
[2018-04-25] MEDS: INSULIN LISPRO 100 UNIT/ML 3 ML VIAL SUBCUT PRN (12:25)
--- NOTE | 2018-04-25 14:55 | PDOC PROGRESS REPORT ---
Subjective Progress Note for:: 04/25/18 Subjective:: The patient is a 68-year-old male with a past medical history of diabetes mellitus, GERD, arthritis, opiate dependent chronic pain, and benzodiazepine dependent anxiety who was admitted 04/18/18 after a mechanical fall and found to have acute encephalopathy, fecal impaction, and bilateral diabetic foot ulcers. Mr Thompson seems to be in much better spirits today. He is happy about starting an oral diet. He had a modified barium swallow this morning. No reports of aspiration at this point. Patient denies coughing spells after eating, fever, chills, or other systemic signs of infection. Nursing recently completed his lower extremity bandage changes. Reports wounds appear to be healing well. Patient is on room air and reports being able to breathe well. Reason For Visit: AMS PSBO R HEEL OSTEO,FECAL IMPACTION CHRONIC PAIN Physical Exam Vital Signs: Temp Pulse Resp BP Pulse Ox 98.3 F 66 16 148/69 H 100 04/25/18 12:00 04/25/18 12:00 04/25/18 12:00 04/25/18 12:00 04/25/18 12:00 Intake & Output 04/24/18 04/25/18 04/26/18 06:59 06:59 06:59 Intake Total 1300 1150 0 Balance 1300 1150 0 Weight 93 kg General appearance: PRESENT: no acute distress Head exam: PRESENT: atraumatic Eye exam: PRESENT: conjunctiva pink, EOMI, PERRLA. ABSENT: scleral icterus Ear exam: PRESENT: normal external ear exam Mouth exam: PRESENT: moist, tongue midline Respiratory exam: PRESENT: other - Good airflow bilaterally. No wheeze. No significant rhonchi or crackles appreciated. Pulses: PRESENT: normal carotid pulses, normal radial pulses GI/Abdominal exam: PRESENT: normal bowel sounds, soft. ABSENT: distended, guarding, mass, organolmegaly, rebound, tenderness Rectal exam: PRESENT: deferred Extremities exam: PRESENT: other - 1+ edema bilateral lower extremities. No sensation below the knee bilateral lower extremities. Musculoskeletal exam: PRESENT: full ROM, normal inspection Neurological exam: PRESENT: alert, awake, oriented to person, oriented to place, oriented to time, oriented to situation, CN II-XII grossly intact. ABSENT: motor sensory deficit Psychiatric exam: ABSENT: normal mood Results Laboratory Results: 04/25/18 06:15 04/25/18 06:15 04/25/18 04/25/18 06:15 06:15 WBC 5.2 RBC 4.10 L Hgb 12.0 L Hct 35.6 L MCV 87 MCH 29.4 MCHC 33.8 RDW 13.1 Plt Count 176 Sodium 143.9 Potassium 3.6 Chloride 111 H Carbon Dioxide 20 L Anion Gap 13 BUN 10 Creatinine 0.55 Est GFR ( Amer) > 60 Est GFR (Non-Af Amer) > 60 Glucose 135 H Calcium 8.6 04/19/18 12:10 Blood Blood Culture - Final NO GROWTH IN 5 DAYS 04/19/18 11:40 Blood Blood Culture - Final NO GROWTH IN 5 DAYS 04/18/18 04/18/18 04/18/18 17:30 17:30 23:00 Creatine Kinase 164 200 H CK-MB (CK-2) 2.28 Troponin I < 0.012 04/18/18 04/19/18 04/19/18 23:00 05:57 05:57 Creatine Kinase 250 H CK-MB (CK-2) 2.12 1.69 Troponin I < 0.012 < 0.012 04/19/18 04/19/18 11:40 11:40 Creatine Kinase 315 H CK-MB (CK-2) 1.65 Troponin I < 0.012 Impressions: Cervical Spine CT 04/18/18 18:47 IMPRESSION: CHRONIC DEGENERATIVE CHANGES. NO ACUTE FINDINGS. Foot X-Ray 04/18/18 18:47 IMPRESSION: Calcaneal spur. No acute findings. No evidence of osteomyelitis. Head CT 04/18/18 18:47 IMPRESSION: NORMAL BRAIN CT WITHOUT CONTRAST. EVIDENCE OF ACUTE STROKE: NO. Abdomen/Pelvis CT 04/18/18 20:11 IMPRESSION: Mildly dilated fluid-filled loops of small bowel in the left hemiabdomen. Differential possibilities include enteritis versus partial small bowel obstruction. Findings also suggestive of constipation. Chest X-Ray 04/20/18 00:00 IMPRESSION: New heterogeneous opacity of the left lung base, concerning for infection or aspiration. Acute Abdomen Series 04/21/18 00:00 IMPRESSION: Persistent left basilar airspace disease worrisome for pneumonia. Grossly nonobstructive bowel gas pattern. Cervical Spine MRI 04/21/18 00:00 IMPRESSION: Multilevel spondylotic changes demonstrating cord contact at the C3 through C7 levels without syrinx. Head MRI 04/21/18 00:00 IMPRESSION: NORMAL MRI OF THE BRAIN WITHOUT INTRAVENOUS GADOLINIUM CONTRAST. EVIDENCE OF ACUTE STROKE: NO. Modified Barium Swallow 04/25/18 00:00 IMPRESSION: LARYNGEAL PENETRATION AND TRACE ASPIRATION DESCRIBED ABOVE.PLEASE SEE SPEECH PATHOLOGIST REPORT FOR OTHER FINDINGS AND RECOMMENDATIONS. Assessment & Plan - Diagnosis (1) Bacteremia Is this a current diagnosis for this admission?: Yes (2) Diabetes mellitus Qualifiers: Diabetes mellitus type: type 2 Diabetes mellitus complication status: with hyperglycemia Is this a current diagnosis for this admission?: Yes (3) Encephalopathy acute Is this a current diagnosis for this admission?: Yes (4) Left lower lobe pneumonia Qualifiers: Pneumonia type: aspiration pneumonia Is this a current diagnosis for this admission?: Yes (5) Opiate dependence, continuous Is this a current diagnosis for this admission?: Yes (6) Partial small bowel obstruction Is this a current diagnosis for this admission?: Yes (7) Therapeutic opioid induced constipation Is this a current diagnosis for this admission?: Yes - Time Time Spent with patient: 25-34 minutes Smoking Cessation Education: 3 to 10 minutes Medications reviewed and adjusted accordingly: Yes - Inpatient Certification Based on my medical assessment, after consideration of the patient's comorbidities, presenting symptoms, or acuity I expect that the services needed warrant INPATIENT care.: Yes I certify that my determination is in accordance with my understanding of Medicare's requirements for reasonable and necessary INPATIENT services [42 CFR 412.3e].: Yes - Plan Summary Plan Summary: (1) Encephalopathy acute Is this a current diagnosis for this admission?: Yes Plan: -Improved. Seems to have intermittent course, and may have some level of delirium super imposed -Likely multifactorial secondary to opiate/benzo missuse, infection (aspiration pneumonia), fecal impaction; -Normal head CT and MRI of head. -Judicious use of opiate/sedating medications. -Fall precautions and supportive care. -Psych felt he lacked capacity early in admisison, and may need to be reconsulted for reevaluation. -Patient has been advised he no longer will be able to manage his own medications as there is a strong likelihood of opiate and benzodiazepine misuse/overuse, as well as, medication noncompliance for management of his diabetes mellitus. (2) Diabetes mellitus Qualifiers: Diabetes mellitus type: type 2 Diabetes mellitus complication status: with hyperglycemia Is this a current diagnosis for this admission?: Yes Plan: -A1c 11.8% on admission. BG in the 130-150 range since admission. -metformin is held while admitted -Continue with 12 units Lantus nightly and sliding scale achs. -Hypoglycemia protocols are in place. -registered dietitian and patient educator involved (3) Bacteremia Is this a current diagnosis for this admission?: Yes Plan: -Blood cultures 2/4 bottles (04/18/18) grew Group B Beta strep. -Repeat blood cultures (04/19/18) have no growth -TMax 103.1. afebriele x 96 hours -CXR 04/21 left lower lobe pneumonia; likely aspiration. -continue cefepime. appears iv vanc was stopped after only a couple days even though suspcision was aspiration in origin. -Urinalysis is negative. -Low suspicion that the source of his infection is related to his bilateral foot ulcerations per surgery (4) Opiate dependence, continuous Is this a current diagnosis for this admission?: Yes Plan: -Secondary to chronic pain. -Resume low dose oxycodone 5 mg q4 hours as needed for pain. -Continue as needed Tylenol and scheduled gabapentin for pain. -Robaxin 500 mg four times daily for muscle spasms. -Lidoderm patches. (5) Chronic pain Is this a current diagnosis for this admission?: Yes Plan: Management as above. (6) Anxiety Is this a current diagnosis for this admission?: Yes Plan: -po klonopin changed to iv ativan she was n.p.o. -Trazodone 50 mg nightly to help with sleep. 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 -Wound care per surgery's recommendations. Surgery has signed off on the case. Nursing is performing the dressing changes. (8) Partial small bowel obstruction Is this a current diagnosis for this admission?: Yes Plan: -Resolved. -Successfully treated with lactulose, fleets enema, and Colace. (9) Dysphagia Qualifiers: Dysphagia type: pharyngeal phase Qualified Code(s): R13.13 - Dysphagia, pharyngeal phase Is this a current diagnosis for this admission?: Yes Plan: -After numerous failed swallow evaluations, patient was finally cleared by speech therapy for a po diet (04/24) -Mechanical soft ground meats and honey thickened liquids per speech therapy recommendations. -Strict aspiration precautions. -MBS. Speech therapy impression pending. (10) CVA (cerebral vascular accident) (on admission) Is this a current diagnosis for this admission?: Yes Plan: -Negative head CT and MRI brain. -Aspirin 300 mg daily. -Atorvastatin 80 mg p.o. daily -PT/OT/ST consultations. -Discharge planning is consulted. -Currently no signs or symptoms. (11) Left lower lobe pneumonia Qualifiers: Pneumonia type: aspiration pneumonia Is this a current diagnosis for this admission?: Yes Plan: -improved -Initial blood culture (04/18/2018) 2/4 group B beta strep -Repeat blood culture (04/19/2018) no growth at 48 hours. -continue iv cefepime. day 6 -supplemental o2 as needed + nebulizer treatments as needed. incentive spirometer at bedside. disposition: will need rolling walker on d/c. will also need some type of assistance with ADL.
[2018-04-25] MEDS: NORMAL SALINE 1000 ML 1,000 ML IV PRN (15:54)
--- NOTE | 2018-04-25 17:19 | ST Inp Modified Barium Swallow ---
Medical Diagnosis - Medical Diagnoses Medical Diagnosis Description & ICD-10 Code(s): partial small bowel obstruction, dysphagia (R13.10) Inpatient [facility] [place] - General Date: 04/25/18 Date of Onset: 04/18/18 - History History Obtained From: Patient -: Medical Medications: Medications Reviewed Allergies: No known allergies - Subjective Current Nutritional Means: PO Current PO Diet: Soft - with thin liquids Current Symptoms: Wet/gurgly voice, Pneumonia Pain: Patient reports, 4/5 - neck and back pain - Objective Assessment: Upright, Left Lateral - Food Trials Food Trials Used: Thin liquids, Pureed, Regular The Patient: Was Able to Self Feed - Assessment Labial Function: Within Normal Limits Lingual Function: Within Normal Limits Mandibular Function: Within Normal Limits Dentition: Dentures-Lower Velo-Pharyngeal Function: Not assessed Laryngeal Function: Volitional Cough - Pharyngeal Stage Initiation of Pharyngeal Stage: Delayed - triggered at level of valleculae Reflex Delay Time (seconds): 1 Decreased Laryngeal Elevation: Yes Reduced Velo-Pharyngeal Closure: no Reduced Pressure Generation: Yes Reduced Tongue Base Retraction: No Pre-Swallowing Pooling in Valleculae: Mild Pre-Swallowing Pooling in Pyriforms: Mild Reduced Thyro-Hyiod Approximation: Yes Reduced Epiglottic Excursion: Yes Multiple Swallows With: Ineffective Clearance - effective for puree (cleared with secondary swallow); ineffective for regular solid Post Swallow Residuals in Valleculae: Moderate - for pudding - cleared with secondary swallow, Significant - for chiquita cracker - required multiple swallows with liquid wash and positional modifications including chin tuck and head turn Post Swallow Residuals in Pyriforms: Moderate, Significant - Esophageal Stage Cricophageal Function: Normal Upper Esophageal Transit: Impaired - Noted statis in upper esophagus Esophageal Stasis/Dysmotility: Yes - Impression/Summary Laryngeal Penetration: Yes, Flash, Silent - with thin liquids, Cleared, during swallow Tracheal Aspiration: no Effective Compensatory Strategies: hard swallow - effective for pudding Ineffective Compensatory Strategies: head turn-right, head turn-left, chin tuck, chin down, hard swallow - ineffective for chiquita cracker Patient Presents With: Pharyngeal stage dysph., Mild-Moderate Risk of Aspiration: Moderate Risk of Nutritional Compromise: Mild - Recommendations NPO: no Solid Diet Recommendations: Mechanical Soft Liquid Diet Recommendations: Thin Regular Diet: Yes Strict Aspitarion Precautions: Yes Dysphagia Therapy with WARDROBE SUPERVISOR: Inpatient - follow-up x1 Recommended Techniques: Fully Upright During Meal, Dry Swallow After Bite - avoid dry textures like breads and crackers, Small Bites and Sips, Alternate Bites/Sips Supervision: Independent - Time Total Time: 15 Total Timed Minutes: 15
[2018-04-25] MEDS: COLLAGENASE CLOSTRIDIUM HIST. OINT 30 GM TOP SCH (17:33)
[2018-04-25] MEDS: TRAZODONE HCL 50 MG TABLET PO SCH (21:56)
[2018-04-25] MEDS: SIMVASTATIN 40 MG TABLET PO SCH (21:56)
[2018-04-25] MEDS: GABAPENTIN 100 MG CAPSULE PO SCH (21:56)
[2018-04-25] MEDS: INSULIN GLARGINE,HUM.REC.ANLOG 300 UNIT/3 ML INSULN.PEN SUBCUT SCH (21:58)
[2018-04-25] MEDS: CHLORPROMAZINE HCL INJ 25 MG/1 ML AMPULE IV SCH (21:58)
[2018-04-26] MEDS: MORPHINE SULFATE 10 MG/ML INJ IV PRN ×6 (04:14→20:41)
[2018-04-26] MEDS: HEPARIN SOD (PORCINE) 5,000 UNIT/ML 1 ML SYRINGE SUBCUT SCH ×3 (05:27→21:33)
[2018-04-26] MEDS: GABAPENTIN 100 MG CAPSULE PO SCH ×2 (05:27→13:24)
[2018-04-26] MEDS: CEFEPIME 1 GM/D5W RTU 1 GM/50 ML RTUPB IV SCH ×2 (05:28→17:20)
[2018-04-26] MEDS: LIDOCAINE 5% (700 MG) TRANSDERMAL ADH..PATCH TP SCH (10:39)
[2018-04-26] MEDS: METHOCARBAMOL 500 MG TABLET PO SCH ×4 (10:39→21:33)
[2018-04-26] MEDS: DOCUSATE SODIUM 100 MG CAPSULE PO SCH (10:39)
[2018-04-26] MEDS: GABAPENTIN 300 MG CAPSULE PO SCH ×2 (13:24→21:33)
[2018-04-26] MEDS ORDERED: LORAZEPAM 0.5 MG TABLET PO PRN (14:04)
--- NOTE | 2018-04-26 14:20 | PDOC PROGRESS REPORT ---
Subjective Progress Note for:: 04/26/18 Subjective:: The patient is a 68-year-old male with a past medical history of diabetes mellitus, GERD, arthritis, opiate dependent chronic pain, and benzodiazepine dependent anxiety who was admitted 04/18/18 after a mechanical fall and found to have acute encephalopathy, fecal impaction, and bilateral diabetic foot ulcers. Mr Thompson continues to be in a better mood since he has started on an oral diet. He had a modified barium swallow yesterday. Speech therapy and radiology reports are available. He is excited about the possibility of discharge tomorrow. Discussion had with patient and sister this morning. She is agreeable to patient returning to her home. She has experienced with administering IV bags of antibiotics at home with an uncle that has Lyme's disease. Patient is tolerating his diet well. He is agreeable to following diet recommendations on discharge. His last bowel movement was within the last 24 hours. Denies fever, chills, chest pain, acute changes in breathing, or other symptoms related to systemic infection. Denies dysuria. Reason For Visit: AMS PSBO R HEEL OSTEO,FECAL IMPACTION CHRONIC PAIN Physical Exam Vital Signs: Temp Pulse Resp BP Pulse Ox 97.8 F 63 18 151/65 H 100 04/26/18 12:41 04/26/18 12:41 04/26/18 12:41 04/26/18 12:41 04/26/18 12:41 Intake & Output 04/25/18 04/26/18 04/27/18 06:59 06:59 06:59 Intake Total 1150 850 425 Output Total 500 Balance 1150 350 425 Weight 93 kg 93.6 kg General appearance: PRESENT: no acute distress, cooperative, obese Head exam: PRESENT: atraumatic, normocephalic Eye exam: PRESENT: conjunctiva pink, EOMI, PERRLA. ABSENT: scleral icterus Ear exam: PRESENT: normal external ear exam Respiratory exam: PRESENT: other - Good airflow bilateral. No wheeze or rhonchi or crackles appreciated. Cardiovascular exam: PRESENT: RRR, +S1, +S2 GI/Abdominal exam: PRESENT: normal bowel sounds, soft. ABSENT: distended, guarding, mass, organolmegaly, rebound, tenderness Rectal exam: PRESENT: deferred Extremities exam: PRESENT: +1 edema - Bilateral lower extremities. chronic Musculoskeletal exam: PRESENT: full ROM Neurological exam: PRESENT: alert, awake, oriented to person, oriented to place, oriented to time, oriented to situation, CN II-XII grossly intact. ABSENT: motor sensory deficit Psychiatric exam: PRESENT: normal mood, other - Little bit odd affect. Results Laboratory Results: 04/25/18 06:15 04/25/18 06:15 04/18/18 04/18/18 04/18/18 17:30 17:30 23:00 Creatine Kinase 164 200 H CK-MB (CK-2) 2.28 Troponin I < 0.012 04/18/18 04/19/18 04/19/18 23:00 05:57 05:57 Creatine Kinase 250 H CK-MB (CK-2) 2.12 1.69 Troponin I < 0.012 < 0.012 04/19/18 04/19/18 11:40 11:40 Creatine Kinase 315 H CK-MB (CK-2) 1.65 Troponin I < 0.012 Impressions: Cervical Spine CT 04/18/18 18:47 IMPRESSION: CHRONIC DEGENERATIVE CHANGES. NO ACUTE FINDINGS. Foot X-Ray 04/18/18 18:47 IMPRESSION: Calcaneal spur. No acute findings. No evidence of osteomyelitis. Head CT 04/18/18 18:47 IMPRESSION: NORMAL BRAIN CT WITHOUT CONTRAST. EVIDENCE OF ACUTE STROKE: NO. Abdomen/Pelvis CT 04/18/18 20:11 IMPRESSION: Mildly dilated fluid-filled loops of small bowel in the left hemiabdomen. Differential possibilities include enteritis versus partial small bowel obstruction. Findings also suggestive of constipation. Chest X-Ray 04/20/18 00:00 IMPRESSION: New heterogeneous opacity of the left lung base, concerning for inf ection or aspiration. Acute Abdomen Series 04/21/18 00:00 IMPRESSION: Persistent left basilar airspace disease worrisome for pneumonia. Grossly nonobstructive bowel gas pattern. Cervical Spine MRI 04/21/18 00:00 IMPRESSION: Multilevel spondylotic changes demonstrating cord contact at the C3 through C7 levels without syrinx. Head MRI 04/21/18 00:00 IMPRESSION: NORMAL MRI OF THE BRAIN WITHOUT INTRAVENOUS GADOLINIUM CONTRAST. EVIDENCE OF ACUTE STROKE: NO. Modified Barium Swallow 04/25/18 00:00 IMPRESSION: LARYNGEAL PENETRATION AND TRACE ASPIRATION DESCRIBED ABOVE.PLEASE SEE SPEECH PATHOLOGIST REPORT FOR OTHER FINDINGS AND RECOMMENDATIONS. Assessment & Plan - Diagnosis (1) Bacteremia Is this a current diagnosis for this admission?: Yes (2) Diabetes mellitus Qualifiers: Diabetes mellitus type: type 2 Diabetes mellitus complication status: with hyperglycemia Is this a current diagnosis for this admission?: Yes (3) Encephalopathy acute Is this a current diagnosis for this admission?: Yes (4) Left lower lobe pneumonia Qualifiers: Pneumonia type: aspiration pneumonia Is this a current diagnosis for this admission?: Yes (5) Opiate dependence, continuous Is this a current diagnosis for this admission?: Yes (6) Partial small bowel obstruction Is this a current diagnosis for this admission?: Yes (7) Therapeutic opioid induced constipation Is this a current diagnosis for this admission?: Yes - Time Time Spent with patient: 25-34 minutes Anticipated discharge: Home with Homehealth Within: within 48 hours - Inpatient Certification Based on my medical assessment, after consideration of the patient's comorbidities, presenting symptoms, or acuity I expect that the services needed warrant INPATIENT care.: Yes I certify that my determination is in accordance with my understanding of Medicare's requirements for reasonable and necessary INPATIENT services [42 CFR 412.3e].: Yes - Plan Summary Plan Summary: (1) Encephalopathy acute Is this a current diagnosis for this admission?: Yes Plan: -Resolved. -Seems to have intermittent course, and may have some level of delirium super imposed. Likely multifactorial secondary to opiate/benzo missuse, infection (aspiration pneumonia), fecal impaction; -Normal head CT and MRI of head. -Judicious use of opiate/sedating medications. Fall precautions and supportive care. -Psych felt he lacked capacity early in admission. Seems to have the capacity to make decisions, however may need psych to reevaluate should difficult decisions need to be made. -Patient has been advised he no longer will be able to manage his own medications as there is a strong likelihood of opiate and benzodiazepine misuse/overuse, as well as, medication noncompliance for management of his diabetes mellitus. (2) Diabetes mellitus Qualifiers: Diabetes mellitus type: type 2 Diabetes mellitus complication status: with hyperglycemia Is this a current diagnosis for this admission?: Yes Plan: -A1c 11.8% on admission. BG in the 130-150 range since admission. -metformin is held while admitted -Continue with 12 units Lantus nightly and sliding scale achs. -Hypoglycemia protocols are in place. -registered dietitian and patient educator involved (3) Bacteremia Is this a current diagnosis for this admission?: Yes Plan: -Blood cultures 2/4 bottles (04/18/18) grew Group B Beta strep. Repeat blood cultures (04/19/18) have no growth. Definitive source not identified. -TMax 103.1. afebriele > 48 hours. -CXR 04/21 left lower lobe pneumonia; likely aspiration. -continue cefepime. Started on 04/20. Needs 10-14-day course, thus will need IV antibiotics on discharge. received IV vancomycin for a couple days early in admission. -Urinalysis is negative. Low suspicion that the source of his infection is related to his bilateral foot ulcerations per surgery (4) Opiate dependence, continuous Is this a current diagnosis for this admission?: Yes Plan: -Secondary to chronic pain. -Resume low dose oxycodone 5 mg q4 hours as needed for pain. -Continue as needed Tylenol and scheduled gabapentin for pain. -Robaxin 500 mg four times daily for muscle spasms. -Did not feel Lidoderm patches were helpful. -Gabapentin resumed at 300 mg tid. (5) Chronic pain Is this a current diagnosis for this admission?: Yes Plan: Management as above. (6) Anxiety Is this a current diagnosis for this admission?: Yes Plan: -Controlled at this point. -Change IV Ativan to p.o. Ativan since patient is no longer n.p.o. Patient is aware of black box warning regarding benzo and narcotic use. -Trazodone 50 mg nightly to help with sleep. -PRN Haldol and Thorazine discontinued. Ordered early in admission for agitation. 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 -The patient has deep stage II pressure ulcerations to bilateral heels. -Wound care per surgery's recommendations. Surgery has signed off on the case. Nursing is performing the dressing changes. (8) Partial small bowel obstruction Is this a current diagnosis for this admission?: Yes Plan: -Resolved. -Successfully treated with lactulose, fleets enema, and Colace. (9) Dysphagia Qualifiers: Dysphagia type: pharyngeal phase Qualified Code(s): R13.13 - Dysphagia, pharyngeal phase Is this a current diagnosis for this admission?: Yes Plan: -Improved. Continue with diet per speech recommendations. See modified barium swallow report for those recommendations. -After numerous failed swallow evaluations, patient was finally cleared by speech therapy for a po diet (04/24) -Mechanical soft ground meats and honey thickened liquids per speech therapy recommendations. -Strict aspiration precautions. Patient has been explained on numerous times the risk of aspiration, and possible consequences. (10) CVA (cerebral vascular accident) (on admission) Is this a current diagnosis for this admission?: Yes Plan: -Negative head CT and MRI brain. -Aspirin 300 mg daily & Atorvastatin 80 mg p.o. daily -PT/OT/ST consultations. -No signs or symptoms to suggest stroke. (11) Left lower lobe pneumonia Qualifiers: Pneumonia type: aspiration pneumonia Is this a current diagnosis for this admission?: Yes Plan: -improved -Initial blood culture (04/18/2018) 2/4 group B beta strep -Repeat blood culture (04/19/2018) no growth at 48 hours. -continue iv cefepime. Length of management listed above. -supplemental o2 as needed + nebulizer treatments as needed. incentive spirometer at bedside. disposition: will need rolling walker on d/c. will also need some type of assistance with ADL. Plans to continue living with daughter on discharge. Patient will be a candidate for discharge tomorrow pending lab results.
[2018-04-26] MEDS: COLLAGENASE CLOSTRIDIUM HIST. OINT 30 GM TOP SCH (17:21)
[2018-04-26] MEDS: TRAZODONE HCL 50 MG TABLET PO SCH (21:33)
[2018-04-26] MEDS: SIMVASTATIN 40 MG TABLET PO SCH (21:33)
[2018-04-26] MEDS: INSULIN GLARGINE,HUM.REC.ANLOG 300 UNIT/3 ML INSULN.PEN SUBCUT SCH (21:38)
[2018-04-27] MEDS: MORPHINE SULFATE 10 MG/ML INJ IV PRN ×4 (00:47→11:25)
[2018-04-27 04:45] LABS: ABSOLUTE EOSINOPHILS # (AUTO) 0.1 10^3/uL (0.0-0.6); ABSOLUTE LYMPHOCYTES (AUTO) 1.7 10^3/uL (0.5-4.7); ABSOLUTE MONOCYTES (AUTO) 0.4 10^3/uL (0.1-1.4); ABSOLUTE NEUT (AUTO) 3.7 10^3/uL (1.7-8.2); BASOPHILS % (AUTO) 0.2 % (0-2); EOSINOPHILS % (AUTO) 1.9 % (0-6); HEMATOCRIT 32.5 % (37.9-51.0); HEMOGLOBIN 11.2 g/dL (13.5-17.0); LYMPHOCYTES % (AUTO) 28.7 % (13-45); MEAN CORPUSCULAR HEMOGLOBIN 30.2 pg (27.0-33.4); MEAN CORPUSCULAR HGB CONC 34.5 g/dL (32.0-36.0); MEAN CORPUSCULAR VOLUME 88 fl (80-97); MONOCYTES % (AUTO) 6.9 % (3-13); PLATELET COUNT 155 10^3/uL (150-450); RED BLOOD COUNT 3.72 10^6/uL (4.35-5.55); RED CELL DISTRIBUTION WIDTH 13.4 % (11.5-14.0); SEGMENTED NEUTROPHILS % (AUTO) 62.3 % (42-78); TOTAL CELLS COUNTED % (AUTO) 100 %; WHITE BLOOD COUNT 5.9 10^3/uL (4.0-10.5)
[2018-04-27 05:08] LABS: ANION GAP 6 (5-19); BLOOD UREA NITROGEN 4 mg/dL (7-20); C-REACTIVE PROTEIN 32.1 mg/L (<10.0); CALCIUM 8.5 mg/dL (8.4-10.2); CARBON DIOXIDE 30 mmol/L (22-30); CHLORIDE 106 mmol/L (98-107); GLUCOSE 141 mg/dL (75-110); POTASSIUM 3.1 mmol/L (3.6-5.0); SODIUM 141.6 mmol/L (137-145)
[2018-04-27] MEDS: HEPARIN SOD (PORCINE) 5,000 UNIT/ML 1 ML SYRINGE SUBCUT SCH ×2 (05:23→13:01)
[2018-04-27] MEDS: GABAPENTIN 300 MG CAPSULE PO SCH ×2 (05:23→13:01)
[2018-04-27] MEDS ORDERED: CEFEPIME 1 GM/D5W RTU 1 GM/50 ML RTUPB IV SCH (06:00)
[2018-04-27] MEDS: DOCUSATE SODIUM 100 MG CAPSULE PO SCH (09:06)
[2018-04-27] MEDS: LIDOCAINE 5% (700 MG) TRANSDERMAL ADH..PATCH TP SCH (09:08)
[2018-04-27] MEDS: METHOCARBAMOL 500 MG TABLET PO SCH ×2 (09:14→13:01)
[2018-04-27] MEDS: INSULIN LISPRO 100 UNIT/ML 3 ML VIAL SUBCUT PRN (13:01)
[2018-04-27 14:38] VITALS: BP 148/72
--- NOTE | 2018-04-27 14:49 | PDOC DISCHARGE SUMMARY ---
General - Admit/Disc Date/PCP Admission Date/Primary Care Provider: 04/18/18 22:17 ALBERTO WINTERS, Discharge Date: 04/27/18 - Discharge Diagnosis (1) Bacteremia Is this a current diagnosis for this admission?: Yes (2) Diabetes mellitus Is this a current diagnosis for this admission?: Yes (3) Encephalopathy acute Is this a current diagnosis for this admission?: Yes (4) Left lower lobe pneumonia Is this a current diagnosis for this admission?: Yes (5) Opiate dependence, continuous Is this a current diagnosis for this admission?: Yes (6) Partial small bowel obstruction Is this a current diagnosis for this admission?: Yes (7) Therapeutic opioid induced constipation Is this a current diagnosis for this admission?: Yes - Additional Information Resuscitation Status: Full Code Discharge Diet: Cardiac, Diabetic, Other (Comments) - Per speech recommendations. Low sodium. Cardiac. Discharge Activity: Activity As Tolerated Prescriptions: Collagenase Clostridium Hist. [Santyl Ointment 30 gm] 1 applic TOP DAILY@1800 30 Days tube Docusate Sodium [Colace 100 mg Capsule] 100 mg PO DAILY #30 capsule Gabapentin [Neurontin 300 mg Capsule] 300 mg PO Q8 #90 capsule Glucagon,Human Recombinant [Glucagen Inj 1 mg Vial] 1 mg IM PRN PRN #1 vial PRN Reason: Hydrocodone Bit/Acetaminophen [Hydrocodon-Acetaminophen 5-325] 1 each PO Q6HP PRN #28 tablet PRN Reason: Insulin Glargine,Hum.rec.anlog [Lantus Insulin 100 Unit/mL] 12 unit SUBCUT QHS #1 insuln.pen Levofloxacin [Levaquin 500 mg Tablet] 500 mg PO DAILY #7 tablet Lisinopril/Hydrochlorothiazide [Lisinopril-Hctz 10-12.5 mg Tab] 1 each PO DAILY #30 tablet Metformin HCl [Metformin ER Gastric] 500 mg PO BID #60 [id number] Potassium Chloride [Kaon-Cl 20 Meq/15 ml Udcup] 20 meq PO Q12 #60 udc Simvastatin [Zocor 40 mg Tablet] 80 mg PO QHS #30 tablet Trazodone HCl [Desyrel 50 mg Tablet] 50 mg PO QHS #30 tablet Home Medications: Alpha Lipoic Acid 200 mg PO DAILY 04/19/18 Ergocalciferol (Vitamin D2) [Drisdol 50,000 unit (1.25MG) Capsule] 1 cap PO PECK@1000 04/19/18 Collagenase Clostridium Hist. [Santyl Ointment 30 gm] 1 applic TOP DAILY@1800 30 Days tube 04/27/18 Docusate Sodium [Colace 100 mg Capsule] 100 mg PO DAILY #30 capsule 04/27/18 Gabapentin [Neurontin 300 mg Capsule] 300 mg PO Q8 #90 capsule 04/27/18 Glucagon,Human Recombinant [Glucagen Inj 1 mg Vial] 1 mg IM PRN PRN #1 vial 04/27/18 Hydrocodone Bit/Acetaminophen [Hydrocodon-Acetaminophen 5-325] 1 each PO Q6HP PRN #28 tablet 04/27/18 Insulin Glargine,Hum.rec.anlog [Lantus Insulin 100 Unit/mL] 12 unit SUBCUT QHS #1 insuln.pen 04/27/18 Levofloxacin [Levaquin 500 mg Tablet] 500 mg PO DAILY #7 tablet 04/27/18 Lisinopril/Hydrochlorothiazide [Lisinopril-Hctz 10-12.5 mg Tab] 1 each PO DAILY #30 tablet 04/27/18 Metformin HCl [Metformin ER Gastric] 500 mg PO BID #60 [id number] 04/27/18 Potassium Chloride [Kaon-Cl 20 Meq/15 ml Udcup] 20 meq PO Q12 #60 udc 04/27/18 Simvastatin [Zocor 40 mg Tablet] 80 mg PO QHS #30 tablet 04/27/18 Trazodone HCl [Desyrel 50 mg Tablet] 50 mg PO QHS #30 tablet 04/27/18 History of Present Illness History of Present Illness: ADELINA HANDY is a 68 year old male with a past medical history of diabetes, right heel osteomyelitis, opiate dependent chronic pain, benzodiazepine and dependent anxiety. Patient presents via EMS after a ground-level mechanical fall resulting in abrasion to his forehead. He has had subsequent confusion, fever and abdominal pain prompting evaluation in the emergency room. He is found to have an unremarkable CT of the head, abdominal pain and distention with a partial small bowel obstruction with fecal impaction, and bilateral heel ulcer with bone exposure. He started on empiric antibiotics and referred to the hospitalist for admission. Patient's daughter is at bedside who verifies discrepancy in opiate medications and unable to find her father's Klonopin. Hospital Course Hospital Course: (1) Encephalopathy acute Is this a current diagnosis for this admission?: Yes Plan: -Resolved. -Seems to have intermittent course, and may have some level of delirium super imposed. Likely multifactorial secondary to opiate/benzo missuse, infection (aspiration pneumonia), fecal impaction; -Normal head CT and MRI of head. -Judicious use of opiate/sedating medications. Fall precautions and supportive care. -Psych felt he lacked capacity early in admission. Seems to have the capacity to make decisions, however may need psych to reevaluate should difficult dec isions need to be made. -Patient has been advised he no longer will be able to manage his own medica tions as there is a strong likelihood of opiate and benzodiazepine misuse/overuse, as well as, medication noncompliance for management of his diabetes mellitus. Patient has been discharged on a 7-day as needed course of [place]. He has been advised to discontinue benzodiazepine use. (2) Diabetes mellitus Qualifiers: Diabetes mellitus type: type 2 Diabetes mellitus complication status: with hyperglycemia Is this a current diagnosis for this admission?: Yes Plan: -A1c 11.8% on admission. BG in the 130-150 range since admission. -metformin was held while admitted. -Continue with 12 units Lantus nightly and sliding scale achs. -Hypoglycemia protocols are in place. -registered dietitian and patient educator involved (3) Bacteremia Is this a current diagnosis for this admission?: Yes Plan: -Blood cultures 2/4 bottles (04/18/18) grew Group B Beta strep. Repeat blood cultures (04/19/18) have no growth. Definitive source not identified. -TMax 103.1. afebriele > 48 hours. -CXR 04/21 left lower lobe pneumonia; likely aspiration. -continue cefepime. Started on 04/20. Needs 10-14-day course, thus will need antibiotics on discharge. He is being discharged on a 7-day course of p.o. Levaquin. Received IV vancomycin for a couple days early in admission. -Urinalysis is negative. Low suspicion that the source of his infection is related to his bilateral foot ulcerations per surgery (4) Opiate dependence, continuous Is this a current diagnosis for this admission?: Yes Plan: -Secondary to chronic pain. He received p.o. hydrocodone 5 q4-6h and IV morphine for pain management. -Continue as needed Tylenol and scheduled gabapentin for pain. -Robaxin 500 mg four times daily for muscle spasms. Robaxin was discontinued upon discharge. -Did not feel Lidoderm patches were helpful. -Gabapentin resumed at 300 mg tid. (5) Chronic pain Is this a current diagnosis for this admission?: Yes Plan: Management as above. (6) Anxiety Is this a current diagnosis for this admission?: Yes Plan: -Controlled at this point. -P.o. Klonopin and IV Ativan were used for anxiety. Patient is aware of black box warning regarding benzo and narcotic use. He will not be discharged on benzodiazepines. -Trazodone 50 mg nightly to help with sleep. -PRN Haldol and Thorazine discontinued. Ordered early in admission for agitation. 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 -The patient has deep stage II pressure ulcerations to bilateral heels. Surgery debrided his heels at bedside. -Wound care per surgery's recommendations. Surgery has signed off on the case. Nursing is performing the dressing changes. (8) Partial small bowel obstruction Is this a current diagnosis for this admission?: Yes Plan: -Resolved. Successfully treated with lactulose, fleets enema, and Colace. (9) Dysphagia Qualifiers: Dysphagia type: pharyngeal phase Qualified Code(s): R13.13 - Dysphagia, pharyngeal phase Is this a current diagnosis for this admission?: Yes Plan: -Improved. Continue with diet per speech recommendations. See modified barium swallow report for those recommendations. -After numerous failed swallow evaluations, patient was finally cleared by speech therapy for a po diet (04/24) -Mechanical soft ground meats and honey thickened liquids per speech therapy recommendations. -Strict aspiration precautions. Patient has been explained on numerous times the risk of aspiration, and possible consequences. (10) CVA (cerebral vascular accident) (on admission) Is this a current diagnosis for this admission?: Yes Plan: -Negative head CT and MRI brain. -Aspirin 300 mg daily & Atorvastatin 80 mg p.o. daily -PT/OT/ST consultations. -No signs or symptoms to suggest stroke. (11) Left lower lobe pneumonia Qualifiers: Pneumonia type: aspiration pneumonia Is this a current diagnosis for this admission?: Yes Plan: -improved -Initial blood culture (04/18/2018) 2/4 group B beta strep -Repeat blood culture (04/19/2018) no growth at 48 hours. -Received 8 days of iv cefepime. Length of management listed above. -supplemental o2 as needed + nebulizer treatments as needed. incentive spirometer at bedside. (12) hypertension -Patient is being discharged on 12.5-10 HCTZ/lisinopril. (13) hypokalemia -Start 20 mg p.o. twice daily. disposition: will need rolling walker on d/c. will also need some type of assistance with ADL. Plans to continue living with daughter on discharge. Early in admission patient was evaluated by psych and they deemed him not having the capacity to make decisions. This was during he had an altered mental status. Later in the admission he wanted to leave AGAINST MEDICAL ADVICE, and ultimately was involuntary committed for 3 days. That IVC will today. He had a one-on- one sitter for the next 3 days to ensure that he did not leave and and was not a danger to himself. Physical Exam Vital Signs: Temp Pulse Resp BP Pulse Ox 98.6 F 65 18 144/66 H 100 04/27/18 11:42 04/27/18 11:42 04/27/18 11:42 04/27/18 11:42 04/27/18 11:42 Intake & Output 04/26/18 04/27/18 04/28/18 06:59 06:59 06:59 Intake Total 850 1450 450 Output Total 500 Balance 350 1450 450 Weight 93.6 kg General appearance: PRESENT: no acute distress, cooperative, well-developed, well-nourished Head exam: PRESENT: atraumatic, normocephalic Eye exam: PRESENT: conjunctiva pink, EOMI, PERRLA. ABSENT: scleral icterus Ear exam: PRESENT: normal external ear exam Mouth exam: PRESENT: moist, tongue midline Respiratory exam: PRESENT: clear to auscultation azeb Cardiovascular exam: PRESENT: RRR, +S1, +S2 GI/Abdominal exam: PRESENT: normal bowel sounds, soft. ABSENT: distended, guarding, mass, organolmegaly, rebound, tenderness Rectal exam: PRESENT: deferred - Trace to 1+ bilateral lower extremity edema. Neurological exam: PRESENT: alert, awake, oriented to person, oriented to place, oriented to time, oriented to situation, CN II-XII grossly intact. ABSENT: motor sensory deficit Psychiatric exam: PRESENT: appropriate affect, normal mood. ABSENT: homicidal ideation, suicidal ideation Results Laboratory Results: 04/27/18 04:29 04/27/18 04:29 04/27/18 04/27/18 04:29 04:29 WBC 5.9 RBC 3.72 L Hgb 11.2 L Hct 32.5 L MCV 88 MCH 30.2 MCHC 34.5 RDW 13.4 Plt Count 155 Seg Neutrophils % 62.3 Lymphocytes % 28.7 Monocytes % 6.9 Eosinophils % 1.9 Basophils % 0.2 Absolute Neutrophils 3.7 Absolute Lymphocytes 1.7 Absolute Monocytes 0.4 Absolute Eosinophils 0.1 Absolute Basophils 0.0 Sodium 141.6 Potassium 3.1 L Chloride 106 Carbon Dioxide 30 Anion Gap 6 BUN 4 L Creatinine 0.58 Est GFR ( Amer) > 60 Est GFR (Non-Af Amer) > 60 Glucose 141 H Calcium 8.5 C-Reactive Protein 32.1 H 04/18/18 04/18/18 04/18/18 17:30 17:30 23:00 Creatine Kinase 164 200 H CK-MB (CK-2) 2.28 Troponin I < 0.012 04/18/18 04/19/18 04/19/18 23:00 05:57 05:57 Creatine Kinase 250 H CK-MB (CK-2) 2.12 1.69 Troponin I < 0.012 < 0.012 04/19/18 04/19/18 11:40 11:40 Creatine Kinase 315 H CK-MB (CK-2) 1.65 Troponin I < 0.012 Impressions: Cervical Spine CT 04/18/18 18:47 IMPRESSION: CHRONIC DEGENERATIVE CHANGES. NO ACUTE FINDINGS. Foot X-Ray 04/18/18 18:47 IMPRESSION: Calcaneal spur. No acute findings. No evidence of osteomyelitis. Head CT 04/18/18 18:47 IMPRESSION: NORMAL BRAIN CT WITHOUT CONTRAST. EVIDENCE OF ACUTE STROKE: NO. Abdomen/Pelvis CT 04/18/18 20:11 IMPRESSION: Mildly dilated fluid-filled loops of small bowel in the left hemiabdomen. Differential possibilities include enteritis versus partial small bowel obstruction. Findings also suggestive of constipation. Chest X-Ray 04/20/18 00:00 IMPRESSION: New heterogeneous opacity of the left lung base, concerning for infection or aspiration. Acute Abdomen Series 04/21/18 00:00 IMPRESSION: Persistent left basilar airspace disease worrisome for pneumonia. Grossly nonobstructive bowel gas pattern. Cervical Spine MRI 04/21/18 00:00 IMPRESSION: Multilevel spondylotic changes demonstrating cord contact at the C3 through C7 levels without syrinx. Head MRI 04/21/18 00:00 IMPRESSION: NORMAL MRI OF THE BRAIN WITHOUT INTRAVENOUS GADOLINIUM CONTRAST. EVIDENCE OF ACUTE STROKE: NO. Modified Barium Swallow 04/25/18 00:00 IMPRESSION: LARYNGEAL PENETRATION AND TRACE ASPIRATION DESCRIBED ABOVE.PLEASE SEE SPEECH PATHOLOGIST REPORT FOR OTHER FINDINGS AND RECOMMENDATIONS. Qualifiers - * PATIENT BEING DISCHARGED WITH ANY OF THE FOLLOWING DIAGNOSIS: No VTE patient discharged on overlapping Therapy?: No Plan Discharge Plan: Patient will be discharged on oral Levaquin 500 mg daily times 7 days. He has been advised to follow-up with his primary care physician on discharge. Recommended to have follow-up blood cultures 2-4 days after completion of antibiotics. Home health has been ordered for dressing changes. Dressing changes to be done per wound care instructions. Patient plans to continue living with daughter on discharge. Family is agreeable to him living there, as well as helping with his medical conditions. They will also help him manage his medications. He has also been ordered a rolling walker to assist with mobility per physical therapy recommendations. Recommend patient have primary care physician follow-up on BMP and CBC and blood cultures at follow-up visit. Time Spent: Greater than 30 Minutes
[2018-04-27] MEDS ORDERED: HYDROCODONE/ACETAMINOPHEN 5-325 MG TABLET PO ONE (15:00)
[2018-04-27] MEDS ORDERED: POTASSIUM CHLORIDE 10 MEQ CAPSULE.ER PO ONE (15:00)
[2018-04-27] MEDS ORDERED: POTASSIUM CHLORIDE 20 MEQ/15 ML UDCUP PO SCH (22:00)
--- NOTE | 2018-04-29 20:47 | XCELERA REPORT ---
[address] [address] Transthoracic Echocardiogram Report Name: ADELINA HANDY Age: 68 yrs Gender: Male : 1950 Patient Status: Inpatient Patient Location: [address] [place] [address] Study Date: 04/23/2018 10:52 AM Procedure: A two-dimensional transthoracic echocardiogram with color flow and Doppler was performed. The study was technically difficult with many images being suboptimal in quality. Images were not obtained from all of the standard acoustic windows due to the limited scope of the study. Reason For Study: TIA/CVA workup History: TIA/CVA. Ordering Physician: KRISTIN IRIZARRY Performed By: Maria Esther Adorno Interpretation Summary There is no obvious cardiac source of embolus noted on this transthoracic echocardiogram. Follow-up with a MATTHIAS is suggested if cardiac source is still suspected. The study was technically difficult with many images being suboptimal in quality. Images were not obtained from all of the standard acoustic windows due to the limited scope of the study. The left ventricle is normal in size. There is normal left ventricular wall thickness. No True apical 2 chamber views obtained.Hence cannot comment on the apical anterior , the basal anterior, the basal inferior and apical inferior jordan.The mid anterior , the mid inferior and the rest of the LV jordan contract normally. .Normal LVEF is normal and is greater than 65% in the limited views. Doppler measurements suggest normal left ventricular diastolic function There is no thrombus. The right ventricle is not well visualized secondary to technical limitations Right atrium not well visualized secondary to technical limitations The left atrium is mildly dilated. There is no evidence of mitral valve prolapse. There is no vegetation seen on the mitral valve. There is no mitral valve stenosis. There is a trace amount of mitral regurgitation There is no aortic valve stenosis There is no LVOT obstruction. No aortic regurgitation is present. There is no tricuspid stenosis. No tricuspid regurgitation. Unable to calculate RVSP due lack of TR jet. The pulmonic valve is not well visualized. The aortic root is normal size. There is no pericardial effusion. There is no obvious cardiac source of embolus noted on this transthoracic echocardiogram. Follow-up with a MATTHIAS is suggested if cardiac source is still suspected MMode/2D Measurements & Calculations IVSd: 1.1 cm LVIDd: 5.0 cm FS: 38.7 % Ao root diam: 3.5 cm LVIDs: 3.0 cm EDV(Teich): 115.9 ml Ao root area: 9.5 cm2 LVPWd: 1.0 cm ESV(Teich): 36.1 ml EF(Teich): 68.9 % Doppler Measurements & Calculations MV E max danitza: MV dec slope: Ao V2 max: LV V1 max P.8 cm/sec 128.6 cm/sec 3.9 mmHg MV A max danitza: 516.7 cm/sec2 Ao max PG: LV V1 max: 68.5 cm/sec MV dec time: 0.17 sec 6.6 mmHg 99.0 cm/sec MV E/A: 1.3 PA V2 max: 107.4 cm/sec PA max P.6 mmHg Left Ventricle The left ventricle is normal in size. There is normal left ventricular wall thickness. No True apical 2 chamber views obtained.Hence cannot comment on the apical anterior , the basal anterior, the basal inferior and apical inferior jordan.The mid anterior , the mid inferior and the rest of the LV jordan contract normally. .Normal LVEF is normal and is greater than 65% in the limited views. Doppler measurements suggest normal left ventricular diastolic function. There is no thrombus. Right Ventricle The right ventricle is not well visualized secondary to technical limitations. Atria Right atrium not well visualized secondary to technical limitations. The left atrium is mildly dilated. Mitral Valve There is no evidence of mitral valve prolapse. There is no vegetation seen on the mitral valve. There is no mitral valve stenosis. There is a trace amount of mitral regurgitation. Aortic Valve There is no aortic valvular vegetation. There is no aortic valve stenosis. There is no LVOT obstruction. No aortic regurgitation is present. Tricuspid Valve There is no tricuspid stenosis. No tricuspid regurgitation. Unable to calculate RVSP due lack of TR jet. Pulmonic Valve The pulmonic valve is not well visualized. Great Vessels The aortic root is normal size. Effusions There is no pericardial effusion. : KRISTIN IRIZARRY Gosia Salcido
== END 2018-04-27 15:15 | disposition home health service (06) | DRG 40 ==
LOC: ER 17:54 → EH 22:17 → 4S 04-19 01:00 → 3W 04-21 18:13
PROVIDERS: ADMIT Internal Medicine; ATTEND Internal Medicine
PROC: 0JBR0ZZ Excision of Left Foot Subcutaneous Tissue and Fascia, Open Approach (ICD-10-PCS; principal; 2018-04-19)
PROC: 0JBQ0ZZ Excision of Right Foot Subcutaneous Tissue and Fascia, Open Approach (ICD-10-PCS; 2018-04-19)
PROC: 0HBNXZZ Excision of Left Foot Skin, External Approach (ICD-10-PCS; 2018-04-19)
PROC: 0HBMXZZ Excision of Right Foot Skin, External Approach (ICD-10-PCS; 2018-04-19)
PROC: 0HDMXZZ Extraction of Right Foot Skin, External Approach (ICD-10-PCS; 2018-04-22)
DX: G92 Toxic encephalopathy (principal); L89.623 Pressure ulcer of left heel, stage 3; J69.0 Pneumonitis due to inhalation of food and vomit; I63.9 Cerebral infarction, unspecified; L03.115 Cellulitis of right lower limb; K56.600 Partial intestinal obstruction, unspecified as to cause; M86.9 Osteomyelitis, unspecified; F11.20 Opioid dependence, uncomplicated; R78.81 Bacteremia; E11.622 Type 2 diabetes mellitus with other skin ulcer; L89.612 Pressure ulcer of right heel, stage 2; I10 Essential (primary) hypertension; E11.69 Type 2 diabetes mellitus with other specified complication; K21.9 Gastro-esophageal reflux disease without esophagitis; R13.10 Dysphagia, unspecified; E87.6 Hypokalemia; B95.1 Streptococcus, group B, as the cause of diseases classified elsewhere; F41.9 Anxiety disorder, unspecified; T50.995A Adverse effect of other drugs, medicaments and biological substances, initial encounter; G89.29 Other chronic pain; S00.81XA Abrasion of other part of head, initial encounter; W19.XXXA Unspecified fall, initial encounter; Y93.89 Activity, other specified; Y92.89 Other specified places as the place of occurrence of the external cause; Z79.84 Long term (current) use of oral hypoglycemic drugs; Z79.899 Other long term (current) drug therapy
CPT/HCPCS: 36415; 70450; 70551; 71045; 71046; 72125; 72141; 74022; 74177; 74230; 80048; 80053; 80061; 80307; 81001; 82550; 82553; 82962; 83036; 83605; 83735; 84100; 84443; 84484; 85025; 85027; 85610; 85652; 86140; 87040; 87077; 87186; 87804; 93005; 93010; 93306; 94799; 99285; G8987-GO; G8988-GO; G8989-GO; G8996-GN; G8997-GN; J0692; J1170; J1644; J1815; J2270; J3230; J3370; J3490; J7030; J7060; J7120; S0164

== ENCOUNTER → 2018-07-15 | Outpatient (CLI) | payer MEDICARE, MEDICAID ==
--- NOTE | 2018-07-15 14:13 | RADIOLOGY REPORT (SQ) ---
EXAM DESCRIPTION: FOOT RIGHT COMPLETE COMPLETED DATE/TIME: 07/15/2018 1:57 pm REASON FOR STUDY: NON-PRS CHRONIC ULCER OTH PRT RIGHT FOOT W FAT LAYER EXPOSED L97.512 NON-PRS LOBSTERMAN IVANIA ULCER OTH PRT RIGHT FOOT W FAT LAYER COMPARISON: 04/18/2018 NUMBER OF VIEWS: Three views. TECHNIQUE: AP, lateral and oblique radiographic images acquired of the right foot. LIMITATIONS: None. FINDINGS: MINERALIZATION: Normal. BONES: No acute fracture or dislocation. Small accessory navicular ossicles, normal anatomic variant s. Plantar calcaneal spur. JOINTS: No effusions. SOFT TISSUES: No soft tissue swelling. No foreign bodies. OTHER: No other significant finding. IMPRESSION: 1. No acute osseous findings. 2. No evidence of osteomyelitis. 3. Plantar calcaneal spur. TECHNICAL DOCUMENTATION: JOB ID: [id number]- All Rights Reserved Reading location - IP/workstation name: [email or web address]
[2018-07-15 14:40] LABS: ABSOLUTE EOSINOPHILS # (AUTO) 0.1 10^3/uL (0.0-0.6); ABSOLUTE LYMPHOCYTES (AUTO) 2.3 10^3/uL (0.5-4.7); ABSOLUTE MONOCYTES (AUTO) 0.4 10^3/uL (0.1-1.4); ABSOLUTE NEUT (AUTO) 4.6 10^3/uL (1.7-8.2); BASOPHILS % (AUTO) 0.4 % (0-2); EOSINOPHILS % (AUTO) 1.5 % (0-6); HEMATOCRIT 41.3 % (37.9-51.0); HEMOGLOBIN 13.8 g/dL (13.5-17.0); LYMPHOCYTES % (AUTO) 31.1 % (13-45); MEAN CORPUSCULAR HEMOGLOBIN 27.7 pg (27.0-33.4); MEAN CORPUSCULAR HGB CONC 33.4 g/dL (32.0-36.0); MEAN CORPUSCULAR VOLUME 83 fl (80-97); MONOCYTES % (AUTO) 5.3 % (3-13); PLATELET COUNT 185 10^3/uL (150-450); RED BLOOD COUNT 4.97 10^6/uL (4.35-5.55); RED CELL DISTRIBUTION WIDTH 15.6 % (11.5-14.0); SEGMENTED NEUTROPHILS % (AUTO) 61.7 % (42-78); TOTAL CELLS COUNTED % (AUTO) 100 %; WHITE BLOOD COUNT 7.4 10^3/uL (4.0-10.5)
[2018-07-15 15:05] LABS: ANION GAP 10 (5-19)
[2018-07-15 15:29] LABS: ERYTHROCYTE SEDIMENTATION RATE 23 mm/hr (0-20)
[2018-07-15 17:29] LABS: ALANINE AMINOTRANSFERASE 27 U/L (21-72); ALBUMIN 4.5 g/dL (3.5-5.0); ALKALINE PHOSPHATASE 91 U/L (38-126); ASPARTATE AMINO TRANSFERASE 24 U/L (17-59); BILIRUBIN,DIRECT 0.3 mg/dL (0.0-0.4); BILIRUBIN,TOTAL 0.5 mg/dL (0.2-1.3); BLOOD UREA NITROGEN 14 mg/dL (7-20); C-REACTIVE PROTEIN 16.3 mg/L (<10.0); CARBON DIOXIDE 29 mmol/L (22-30); CHLORIDE 98 mmol/L (98-107); GLUCOSE 168 mg/dL (75-110); POTASSIUM 4.8 mmol/L (3.6-5.0); TOTAL PROTEIN 8.2 g/dL (6.3-8.2)
== END ==
LOC: WC 13:38
PROVIDERS: ATTEND Preventive Medicine Undersea and Hyperbaric Medicine
DX: L97.512 Non-pressure chronic ulcer of other part of right foot with fat layer exposed (principal); M77.31 Calcaneal spur, right foot
CPT/HCPCS: 36415; 80053; 85025; 85652; 86140

== ENCOUNTER → 2018-09-16 | Outpatient (CLI) | payer MEDICARE, MEDICAID ==
--- NOTE | 2018-09-17 08:57 | RADIOLOGY REPORT (SQ) ---
EXAM DESCRIPTION: ARTERIAL LOWER EXTREM BILAT COMPLETED DATE/TIME: 09/16/2018 5:38 pm REASON FOR STUDY: RT FOOT ULCER L97.512 NON-PRS CHRONIC ULCER OTH PRT RIGHT FOOT W FAT LAYER COMPARISON: 05/12/2012 TECHNIQUE: Dynamic and static cui scale and color images acquired of the lower extremity arteries. Additional selected spectral images recorded. ABIs recorded. LIMITATIONS: None. FINDINGS: RIGHT LEG: ABIS: 0.70 INFLOW ARTERIES: Normal, no obstruction evident. FEMORAL ARTERIES:Multiphasic waveforms. There is focal narrowing in the right common femoral artery w ith velocities as high as 3.0 m/sec. There is focal narrowing in the proximal SFA with velocities ca lculated 2.2 m/sec. POPLITEAL ARTERY:Multiphasic waveforms. Normal, no velocity elevation to suggest focal stenosis. Norm al color Doppler evaluation. No aneurysm. PATENT TIBIOPERONEAL TRUNK AND 3 VESSEL RUNOFF: Yes, normal vessels. TBI: Not performed. OTHER: No other significant finding. LEFT LEG: ABIS: Normal, over 1.0. INFLOW ARTERIES: Normal, no obstruction evident. FEMORAL ARTERIES:Multiphasic waveforms. Normal, no velocity elevation to suggest focal stenosis. Norm al color Doppler evaluation. No aneurysm. POPLITEAL ARTERY:Multiphasic waveforms. Normal, no velocity elevation to suggest focal stenosis. Norm al color Doppler evaluation. No aneurysm. PATENT TIBIOPERONEAL TRUNK AND 3 VESSEL RUNOFF: Yes, normal vessels. TBI: Not performed. OTHER: No other significant finding. IMPRESSION: 1. Moderate right lower extremity ischemia with focal areas of narrowing in the right c ommon femoral artery and proximal SFA. These lesions would be amendable to percutaneous intervention if clinically indicated. 2. No significant disease in the left lower extremity. COMMENT: [facility] NORMAL: Greater than 1.0 MINIMAL DISEASE: 0.9 to 1.0 CLAUDICATION: 0.5 to 0.9 SEVERE ARTERIAL DISEASE: Less than 0.5 [facility] NORMAL: Greater than 1.0 (1.2 If Heavy Calcifications) NORMAL TO MILD ISCHEMIA: 0.8 to 1.0 MODERATE ISCHEMIA: 0.4 to 0.8 SEVERE ISCHEMIA: Less than 0.4 TECHNICAL DOCUMENTATION: JOB ID: [id number] [employer]- All Rights Reserved Reading location - IP/workstation name: [email or web address]
== END ==
LOC: SP 14:34
PROVIDERS: ATTEND Preventive Medicine Undersea and Hyperbaric Medicine
DX: L97.512 Non-pressure chronic ulcer of other part of right foot with fat layer exposed (principal)
CPT/HCPCS: 93925

== ENCOUNTER 2018-09-22 18:27 | Emergency (ER) | payer MEDICARE, MEDICAID ==
--- NOTE | 2018-09-22 19:02 | ER Document Report ---
ED Medical Screen (RME) - General Chief Complaint: Leg Pain Stated Complaint: RIGHT FOOT PAIN Time Seen by Provider: 09/22/18 18:50 Primary Care Provider: ALICIA MCKINNEY DPM [Primary Care Provider] - Follow up as needed TRAVEL OUTSIDE OF THE [place] 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 Daughter states that there is a new ulcer that showed up 6 days ago to the metatarsal area. He has been seeing wound clinic for the one on the heel which has been healing well for them. No new injury or trauma. Denies drug allergies. Denies D[place]GL[place], fever, neck pain, URI, CP, SOB, Abd pain. I have treated and performed a rapid initial assessment of this patient. A comprehensive ED assessment and evaluation of the patient, analysis of test results and completion of medical decision making process will be conducted by additional ED providers. Will defer any further imaging studies to next provider. PHYSICAL EXAMINATION: GENERAL: Well-appearing, well-nourished and in no acute distress. A&Ox4. Answers questions appropriately. LUNGS: Breath sounds clear to auscultation bilaterally and equal. No wheezes rales or rhonchi. HEART: Regular rate and rhythm without murmurs, rubs, gallops. Ext's: Trace pitting b/l. Rt LE has circumferential erythema to the lower leg with warmth associated. + ulcer noted to the medial metatarsal plantar foot with some blackening noted. No calf or posterior leg tenderness. Foot is warm. 1+ pulses b/l. - Related Data Allergies/Adverse Reactions: No Known Allergies Allergy (Verified 09/22/18 18:30) Past Medical History - Past Medical History Cardiac Medical History: Denies: Hx Coronary Artery Disease, Hx Heart Attack, Hx Hypertension - Takes medicine for kidneys Pulmonary Medical History: Denies: Hx Asthma, Hx Bronchitis, Hx COPD, Hx Pneumonia, Hx Tuberculosis Neurological Medical History: Denies: Hx Cerebrovascular Accident, Hx Seizures Endocrine Medical History: Reports: Hx Diabetes Mellitus Type 2 Renal/ Medical History: Denies: Hx Peritoneal Dialysis GI Medical History: Reports: Hx Gastroesophageal Reflux Disease Musculoskeltal Medical History: Reports Hx Arthritis - Hands Past Surgical History: Denies: Hx Pacemaker - Immunizations Hx Diphtheria, Pertussis, Tetanus Vaccination: Yes - 02/27/11 Physical Exam - Vital signs Vitals: Temp Pulse BP Pulse Ox 98.6 F 81 102/58 L 97 09/22/18 18:35 09/22/18 18:35 09/22/18 18:35 09/22/18 18:35 Course - Vital Signs Vital signs: Temp Pulse Resp BP Pulse Ox 98.6 F 81 102/58 L 97 09/22/18 18:35 09/22/18 18:35 09/22/18 18:35 09/22/18 18:35 Doctor's Discharge - Discharge Referrals: ALICIA MCKINNEY DPM [Primary Care Provider] - Follow up as needed
--- NOTE | 2018-09-22 19:23 | RADIOLOGY REPORT (SQ) ---
EXAM DESCRIPTION: FOOT RIGHT COMPLETE COMPLETED DATE/TIME: 09/22/2018 7:15 pm REASON FOR STUDY: ulcer near medial metatarsal, DM hx COMPARISON: None. NUMBER OF VIEWS: Three views. TECHNIQUE: AP, lateral and oblique radiographic images acquired of the right foot. LIMITATIONS: None. FINDINGS: MINERALIZATION: Normal. BONES: No acute fracture or dislocation. No worrisome bone lesions. JOINTS: No effusions. SOFT TISSUES: No soft tissue swelling. No foreign body. OTHER: No other significant finding. IMPRESSION: NEGATIVE STUDY OF THE RIGHT FOOT. NO RADIOGRAPHIC EVIDENCE OF ACUTE OSTEOMYELITIS. TECHNICAL DOCUMENTATION: JOB ID: [id number] [employer]- All Rights Reserved Reading location - IP/workstation name: [email or web address]
[2018-09-22 19:44] LABS: ABSOLUTE EOSINOPHILS # (AUTO) 0.1 10^3/uL (0.0-0.6); ABSOLUTE MONOCYTES (AUTO) 0.6 10^3/uL (0.1-1.4); ABSOLUTE NEUT (AUTO) 7.1 10^3/uL (1.7-8.2); BASOPHILS % (AUTO) 0.3 % (0-2); EOSINOPHILS % (AUTO) 0.7 % (0-6); HEMATOCRIT 42.8 % (37.9-51.0); HEMOGLOBIN 14.1 g/dL (13.5-17.0); LYMPHOCYTES % (AUTO) 20.6 % (13-45); MEAN CORPUSCULAR HEMOGLOBIN 26.9 pg (27.0-33.4); MEAN CORPUSCULAR HGB CONC 32.8 g/dL (32.0-36.0); MEAN CORPUSCULAR VOLUME 82 fl (80-97); MONOCYTES % (AUTO) 5.7 % (3-13); PLATELET COUNT 146 10^3/uL (150-450); RED BLOOD COUNT 5.22 10^6/uL (4.35-5.55); RED CELL DISTRIBUTION WIDTH 14.7 % (11.5-14.0); SEGMENTED NEUTROPHILS % (AUTO) 72.7 % (42-78); TOTAL CELLS COUNTED % (AUTO) 100 %; WHITE BLOOD COUNT 9.8 10^3/uL (4.0-10.5)
[2018-09-22] MEDS ORDERED: CEFTRIAXONE 1 GM/D5W RTU 1 GM/50 ML RTUPB IV ONE (19:46)
[2018-09-22] MEDS ORDERED: CIPROFLOXACIN 400 MG/D5W RTU 400 MG/200 ML RTUPB IV ONE (19:49)
--- NOTE | 2018-09-22 19:49 | ER Document Report ---
Addendum entered and electronically signed by RIO HARRISON NP 09/23/18 09:29: Course - Re-evaluation Re-evalutation: 09/23/18 09:28 [facility] pharmacy called to clarify patient's prescription for Cipro as they were concerned that it could cause sedating symptoms with his oxycodone. Pharmacy staff advised to fill the Cipro prescription as ordered and advised patient to decrease his dose of his narcotic pain medication until he finishes the antibiotic. - Vital Signs Vital signs: Temp Pulse Resp BP Pulse Ox 98.5 F 76 132/94 H 100 09/22/18 22:02 09/22/18 22:02 09/22/18 22:02 09/22/18 22:02 - Laboratory Result Diagrams: 09/22/18 19:25 09/22/18 20:05 Laboratory results interpreted by me: 09/22/18 09/22/18 09/22/18 19:25 20:05 22:01 MCH 26.9 L RDW 14.7 H Plt Count 146 L Glucose 306 H POC Glucose 250 H Direct Bilirubin 0.5 H Original Note: ED Extremity Problem, Lower - General Chief Complaint: Leg Pain Stated Complaint: RIGHT FOOT PAIN Time Seen by Provider: 09/22/18 18:50 Primary Care Provider: ALICIA MCKINNEY DPM [ACTIVE STAFF] - Follow up as needed Mode of Arrival: Ambulatory Information source: Patient TRAVEL OUTSIDE OF THE [place] IN LAST 30 DAYS: No - HPI Patient complains to provider of: Swelling Notes: Patient is here with family at the bedside. Patient is a diabetic. Patient had been seen in the wound center for a ulcer on his right heel. This ulceration has healed but over the last few days he is developed a new ulceration to the right foot plantar aspect over the distal first metatarsal. Patient is now noted to have some redness to the foot and lower leg. He denies any pain, but states that he has neuropathy. He denies any fevers. No numbness, tingling, weakness. No nausea, vomiting, diarrhea. No chest pain or shortness of breath. No recent long trips or surgeries, cancer, history of DVT or PE. He is not currently on antibiotics. He states that he feels perfectly fine, if it were not for seen the redness to his leg, he would have 0 complaints at all. He denies any other specific complaints at this moment. - Related Data Allergies/Adverse Reactions: No Known Allergies Allergy (Verified 09/22/18 18:30) Past Medical History - Social History Smoking Status: Unknown if Ever Smoked Chew tobacco use (# tins/day): No Frequency of alcohol use: None Drug Abuse: None Family History: Hypertension Patient has suicidal ideation: No Patient has homicidal ideation: No - Past Medical History Cardiac Medical History: Denies: Hx Coronary Artery Disease, Hx Heart Attack, Hx Hypertension - Takes medicine for kidneys Pulmonary Medical History: Denies: Hx Asthma, Hx Bronchitis, Hx COPD, Hx Pneumonia, Hx Tuberculosis Neurological Medical History: Denies: Hx Cerebrovascular Accident, Hx Seizures Endocrine Medical History: Reports: Hx Diabetes Mellitus Type 2 Renal/ Medical History: Denies: Hx Peritoneal Dialysis GI Medical History: Reports: Hx Gastroesophageal Reflux Disease Musculoskeletal Medical History: Reports Hx Arthritis - Hands Past Surgical History: Denies: Hx Pacemaker - Immunizations Hx Diphtheria, Pertussis, Tetanus Vaccination: Yes - 02/27/11 Review of Systems - Review of Systems -: Yes All other systems reviewed and negative Physical Exam - Vital signs Vitals: Temp Pulse BP Pulse Ox 98.6 F 81 102/58 L 97 09/22/18 18:35 09/22/18 18:35 09/22/18 18:35 09/22/18 18:35 - Notes Notes: GENERAL: alert, cooperative, nontoxic, no distress. HEAD: normocephalic, atraumatic EYES: conjunctiva pink without discharge, no external redness or swelling. EARS: no external swelling, no external redness NOSE: atraumatic, no external swelling MOUTH/THROAT: mucous membranes moist and pink, posterior pharynx without erythema, swelling, exudate. No trismus or drooling. NECK: soft, supple, full range of motion, no meningismus. CHEST: no distress, lungs clear and equal throughout. No wheezing, rales, rhonchi. CARDIAC: regular rate and rhythm, no murmur, normal capillary refill, normal pulses. No peripheral edema noted. ABDOMEN: Soft, nontender. BACK: full range of motion, no CVA tenderness. EXTREMITIES: full range of motion of all extremities. Heel ulceration to the right heel. New ulceration to the plantar aspect of the right foot at the dist al first metatarsal. Mild surrounding redness. Mild surrounding redness to the medial aspect of the foot as well as the lower leg. No tenderness to palpation. No calf tenderness or swelling. Normal pulse and sensation. NEURO: alert and oriented x 3, no focal deficits, full range of motion of all extremities. PYSCH: appropriate mood, affect. Patient is cooperative. SKIN: pink, warm, dry, no rash. Course - Re-evaluation Re-evalutation: 09/22/18 21:12 Patient doing well at this time. He remained stable at this time. White counts normal. Blood sugar is 306, bicarb and anion gap are normal, no concern for DKA at this time. Patient states that he ate Canadian fries and barbecue chicken for dinner and did not take his insulin afterwards which would likely explain the reason for his elevated blood sugar at this time. Currently awaiting his next dose of antibiotics to be infused and we will recheck a blood sugar to ensure that it is improving. We will continue to monitor. 09/22/18 22:16 Patient is nontoxic-appearing with stable vitals. He is here with his daughter at the bedside. Patient here with complaints of infection in his right leg. Patient had an ulcer to the right heel which is completely healed. He is been seen in the wound care center for this. He has now developed a new ulcer to the front portion of his foot. He now has cellulitis to the foot and the anterior griggs. He is afebrile. His white count is normal. He was noted to have an elevated blood sugar of 306, he states that he ate barbecue chicken and Canadian fries for dinner and did not take his insulin. He was given a dose of insulin and his blood sugar was rechecked and down to 250. He is not in DKA. Patient had an x-ray of the foot showing no obvious signs of osteomyelitis. Patient has no posterior redness, tenderness or swelling and has no DVT risk factors. Patient was given a dose of Rocephin and Cipro. Due to the fact that he is a diabetic with a foot ulcer and cellulitis to the right lower extremity, I did offer admission to the hospital for close observation and antibiotics. Patient declined and his daughter who is at the bedside agrees. I do believe that this is reasonable at this time as the patient is nontoxic with no signs of systemic illness, sepsis or osteomyelitis. I did inform the need to keep a very close eye on this and if it worsens he should be evaluated immediately as he may require admission to the hospital for further evaluation and management. He will be discharged home with Keflex and Cipro. Follow-up with his wound care center at the next available appointment for reevaluation. Return the emergency department immediately if he has any worsening redness, fever or any further c oncerns. The patient's emergency department workup and current diagnosis were explained to the patient and or family. Follow-up instructions were provided. Medications if prescribed were discussed. Instructions for when to return to the emergency department including specific worrisome symptoms were discussed with the patient and/or family. - Vital Signs Vital signs: Temp Pulse Resp BP Pulse Ox 98.5 F 76 132/94 H 100 09/22/18 22:02 09/22/18 22:02 09/22/18 22:02 09/22/18 22:02 - Laboratory Result Diagrams: 09/22/18 19:25 09/22/18 20:05 Laboratory results interpreted by me: 09/22/18 09/22/18 09/22/18 19:25 20:05 22:01 MCH 26.9 L RDW 14.7 H Plt Count 146 L Glucose 306 H POC Glucose 250 H Direct Bilirubin 0.5 H - Diagnostic Test Radiology reviewed: Image reviewed, Reports reviewed - No signs of osteomyelitis, no fracture. Discharge - Discharge Clinical Impression: Cellulitis of right leg, Hyperglycemia Right foot ulcer Qualifiers: Non-pressure ulcer stage: unspecified non-pressure ulcer stage Qualified Code(s): L97.519 - Non-pressure chronic ulcer of other part of right foot with unspecified severity Condition: Stable Disposition: HOME, SELF-CARE Instructions: Cellulitis ([facility]), Foot or Leg Ulcer ([facility]), Hyperglycemia ([facility]) Additional Instructions: Take medication as prescribed. Follow-up with your wound care center at the next available appointment for reevaluation of your wound as well as redness to your leg. She return the emergency department immediately if the redness spreads, you start running fevers or you are feeling worse in any way. Prescriptions: Cephalexin Monohydrate [Keflex 500 mg Capsule] 500 mg PO Q6H #40 capsule Ciprofloxacin HCl [Cipro 500 mg Tablet] 500 mg PO BID #20 tablet Forms: Elevated Blood Pressure, Smoking Cessation Education Referrals: ALICIA MCKINNEY DPM [ACTIVE STAFF] - Follow up as needed
[2018-09-22] MEDS ORDERED: CEFTRIAXONE 1 GM/D5W RTU 1 GM/50 ML RTUPB IV SCH (20:00)
[2018-09-22 20:47] LABS: ALANINE AMINOTRANSFERASE 24 U/L (21-72); ALBUMIN 4.2 g/dL (3.5-5.0); ALKALINE PHOSPHATASE 112 U/L (38-126); ANION GAP 17 (5-19); ASPARTATE AMINO TRANSFERASE 32 U/L (17-59); BILIRUBIN,DIRECT 0.5 mg/dL (0.0-0.4); BILIRUBIN,TOTAL 0.8 mg/dL (0.2-1.3); BLOOD UREA NITROGEN 15 mg/dL (7-20); CALCIUM 9.2 mg/dL (8.4-10.2); CARBON DIOXIDE 22 mmol/L (22-30); CHLORIDE 101 mmol/L (98-107); GLUCOSE 306 mg/dL (75-110); POTASSIUM 4.5 mmol/L (3.6-5.0); SODIUM 139.5 mmol/L (137-145); TOTAL PROTEIN 7.6 g/dL (6.3-8.2)
[2018-09-22] MEDS ORDERED: INSULIN REG, HUMAN 100 UNIT/ML 3 ML VIAL (PYX) SUBCUT ONE (21:11)
[2018-09-22] MEDS ORDERED: CEFTRIAXONE 2 GM/D5W RTU 2 GM/50 ML RTUPB IV ONE ×2 (21:21→21:22)
[2018-09-22] MEDS ORDERED: CIPROFLOXACIN 400 MG/D5W RTU 400 MG/200 ML RTUPB IV SCH (22:00)
[2018-09-22 22:05] VITALS: BP 132/94
== END 2018-09-22 22:29 | disposition home or self-care (01) ==
LOC: ER 18:27
DX: L03.115 Cellulitis of right lower limb (principal); E11.621 Type 2 diabetes mellitus with foot ulcer; E11.65 Type 2 diabetes mellitus with hyperglycemia; E11.40 Type 2 diabetes mellitus with diabetic neuropathy, unspecified; L97.519 Non-pressure chronic ulcer of other part of right foot with unspecified severity; Z79.4 Long term (current) use of insulin
CPT/HCPCS: 99283; 96365; 96367; 36415; 82962; 85025; 80053; 73630; A9270; J0744; J0696; J1815

== ENCOUNTER → 2018-11-18 | Outpatient (CLI) | payer MEDICARE, MEDICAID ==
[2018-11-18 13:49] LABS: ABSOLUTE EOSINOPHILS # (AUTO) 0.1 10^3/uL (0.0-0.6); ABSOLUTE LYMPHOCYTES (AUTO) 3.2 10^3/uL (0.5-4.7); ABSOLUTE MONOCYTES (AUTO) 0.3 10^3/uL (0.1-1.4); ABSOLUTE NEUT (AUTO) 1.8 10^3/uL (1.7-8.2); BASOPHILS % (AUTO) 0.7 % (0-2); EOSINOPHILS % (AUTO) 2.6 % (0-6); HEMATOCRIT 43.2 % (37.9-51.0); HEMOGLOBIN 14.2 g/dL (13.5-17.0); MEAN CORPUSCULAR HEMOGLOBIN 27.1 pg (27.0-33.4); MEAN CORPUSCULAR HGB CONC 32.8 g/dL (32.0-36.0); MEAN CORPUSCULAR VOLUME 83 fl (80-97); MONOCYTES % (AUTO) 5.9 % (3-13); PLATELET COUNT 150 10^3/uL (150-450); RED BLOOD COUNT 5.23 10^6/uL (4.35-5.55); RED CELL DISTRIBUTION WIDTH 15.9 % (11.5-14.0); SEGMENTED NEUTROPHILS % (AUTO) 32.8 % (42-78); TOTAL CELLS COUNTED % (AUTO) 100 %; WHITE BLOOD COUNT 5.5 10^3/uL (4.0-10.5)
[2018-11-18 14:28] LABS: ERYTHROCYTE SEDIMENTATION RATE 14 mm/hr (0-20)
[2018-11-18 15:44] LABS: ALANINE AMINOTRANSFERASE 21 U/L (21-72); ALBUMIN 4.2 g/dL (3.5-5.0); ALKALINE PHOSPHATASE 92 U/L (38-126); ANION GAP 12 (5-19); ASPARTATE AMINO TRANSFERASE 22 U/L (17-59); BILIRUBIN,DIRECT 0.4 mg/dL (0.0-0.4); BILIRUBIN,TOTAL 0.5 mg/dL (0.2-1.3); BLOOD UREA NITROGEN 15 mg/dL (7-20); C-REACTIVE PROTEIN 13.7 mg/L (<10.0); CALCIUM 9.3 mg/dL (8.4-10.2); CARBON DIOXIDE 23 mmol/L (22-30); CHLORIDE 100 mmol/L (98-107); GLUCOSE 194 mg/dL (75-110); POTASSIUM 4.6 mmol/L (3.6-5.0); TOTAL PROTEIN 7.8 g/dL (6.3-8.2)
--- NOTE | 2018-11-18 16:44 | RADIOLOGY REPORT (SQ) ---
EXAM DESCRIPTION: FOOT RIGHT COMPLETE COMPLETED DATE/TIME: 11/18/2018 1:47 pm REASON FOR STUDY: NON-PRS CHRONIC ULCER OTH PRT RIGHT FOOT W FAT LAYER EXPOSED COMPARISON: 09/22/2018. NUMBER OF VIEWS: Three views right foot LIMITATIONS: None. FINDINGS: Skin surface markers denote the region of interest under the forefoot and under the heel. No radiopaque foreign body or underlying bone erosion. No fracture. OTHER: No other significant finding. IMPRESSION: Radiographically intact right foot. TECHNICAL DOCUMENTATION: JOB ID: [id number] Reading location - IP/workstation name: [email or web address]
== END ==
LOC: WC 12:57
PROVIDERS: ATTEND Preventive Medicine Undersea and Hyperbaric Medicine
DX: L97.512 Non-pressure chronic ulcer of other part of right foot with fat layer exposed (principal)
CPT/HCPCS: 36415; 80053; 85025; 85652; 86140